=== PATIENT | male | born 1965 | race Caucasian/White ===

== ENCOUNTER 2017-09-26 13:52 | Emergency (ER) | payer OTHER ==
[2017-09-26] MEDS: SOD CHLORIDE 0.9% 1,000 ML IV (14:42)
== END 2017-09-26 15:53 | disposition home or self-care (01) ==
LOC: E/R 13:52
DX: F10.929 Alcohol use, unspecified with intoxication, unspecified (principal); E11.9 Type 2 diabetes mellitus without complications; Z79.4 Long term (current) use of insulin
CPT/HCPCS: 99282; J7030

== ENCOUNTER 2018-01-26 13:06 | Emergency (ER) | payer OTHER ==
[2018-01-26 17:11] LABS: ADD MAN DIFF? NO
[2018-01-26] MEDS: CEFTRIAXONE 1 GM/50 ML (PMX) 50 ML IVPB (17:11)
[2018-01-26] MEDS: SOD CHLORIDE 0.9% 1,000 ML IV (17:11)
[2018-01-26] MEDS: KETOROLAC 15 MG INJ IV (17:11)
[2018-01-26 17:14] LABS: WHITE BLOOD COUNT 10.2 10^3/ul (4.8-10.8)
[2018-01-26 17:14] LABS: ABNORMAL IP MESSAGE 1; BASOPHILS % 0.4 % (0.0-2.0); EOSINOPHILS # 0.1 10^3/ul (0.0-0.5); EOSINOPHILS % 1.2 % (0.0-7.0); HEMATOCRIT 32.3 % (42.0-52.0); HEMOGLOBIN 10.8 g/dl (14.0-18.0); LYMPHOCYTES # 0.5 10^3/ul (0.8-2.9); LYMPHOCYTES % 5.3 % (15.0-51.0); MEAN CORPUSCULAR HEMOGLOBIN 28.9 pg (29.0-33.0); MEAN CORPUSCULAR HGB CONC 33.4 g/dl (32.0-37.0); MEAN CORPUSCULAR VOLUME 86.4 fl (82.0-101.0); MEAN PLATELET VOLUME 10.3 fl (7.4-10.4); MONOCYTE # 1.4 10^3/ul (0.3-0.9); NEUTROPHILS % 78.6 % (39.0-77.0); PLATELET COUNT 476 10^3/UL (140-415); POSITIVE DIFF @See below; RED BLOOD COUNT 3.74 10^6/ul (4.70-6.10); RED CELL DISTRIBUTION WIDTH 13.2 % (11.5-14.5)
[2018-01-26 17:35] LABS: ALANINE AMINOTRANSFERASE 25 IU/L (13-69); ALBUMIN 4.2 g/dl (3.3-4.9); ALBUMIN/GLOBULIN RATIO 1.07; ALKALINE PHOSPHATASE 215 IU/L (42-121); ANION GAP 15 (8-16); ASPARTATE AMINO TRANSFERASE 22 IU/L (15-46); BILIRUBIN,INDIRECT 0.3 mg/dl (0-1.1); BILIRUBIN,TOTAL 0.3 mg/dl (0.2-1.3); BLOOD UREA NITROGEN 17 mg/dl (7-20); CALCIUM 9.6 mg/dl (8.4-10.2); CARBON DIOXIDE 29 mmol/L (21-31); CHLORIDE 96 mmol/L (97-110); CREATININE 1.35 mg/dl (0.61-1.24); GLUCOSE 307 mg/dl (70-220); LIPASE 23 U/L (23-300); POTASSIUM 4.4 mmol/L (3.5-5.1); SODIUM 136 mmol/L (135-144); TOTAL PROTEIN 8.1 g/dl (6.1-8.1)
[2018-01-26 17:38] LABS: PHENYTOIN (DILANTIN) < 3.0 ug/ml (10.0-20.0)
[2018-01-26 17:43] LABS: INR 0.93; PROTIME 12.6 Sec (11.9-14.9)
[2018-01-26 17:44] LABS: PARTIAL THROMBOPLASTIN TIME 37.4 Sec (25.0-35.0)
[2018-01-26 17:47] LABS: TROPONIN-I < 0.012 ng/ml (0.000-0.120)
[2018-01-26] MEDS: PIPER-TAZO 3.375 GM IV (PMX) 100 ML IVPB (18:10)
[2018-01-26] MEDS: VANCOMYCIN 1 GM (PMX) 250 ML IVPB (18:37)
== END 2018-01-26 20:41 | disposition left against medical advice (07) ==
LOC: E/R 13:06
DX: M86.9 Osteomyelitis, unspecified (principal); L03.031 Cellulitis of right toe; I10 Essential (primary) hypertension; E11.9 Type 2 diabetes mellitus without complications; Z79.01 Long term (current) use of anticoagulants; Z79.4 Long term (current) use of insulin
CPT/HCPCS: 36415; 71045; 73630; 80053; 80185; 83690; 84484; 85025; 85610; 85730; 93005; 93922; 93970; 96374; 99285-25

== ENCOUNTER 2018-02-27 12:08 | Emergency (ER) | payer OTHER | END 2018-02-27 13:06 | disposition home or self-care (01) | LOC: E/R 12:08 | DX: Z45.2 Encounter for adjustment and management of vascular access device (principal); E11.9 Type 2 diabetes mellitus without complications; Z79.4 Long term (current) use of insulin | CPT/HCPCS: 99282; Z7502 ==

== ENCOUNTER 2018-05-02 12:06 | Inpatient (IN) | payer OTHER ==
[2018-05-02 12:38] LABS: ADD MAN DIFF? NO
[2018-05-02 12:43] LABS: BASOPHILS % 0.2 % (0.0-2.0); HEMATOCRIT 38.9 % (42.0-52.0); HEMOGLOBIN 13.2 g/dl (14.0-18.0); LYMPHOCYTES # 0.9 10^3/ul (0.8-2.9); MEAN CORPUSCULAR HEMOGLOBIN 27.3 pg (29.0-33.0); MEAN CORPUSCULAR HGB CONC 33.9 g/dl (32.0-37.0); MEAN CORPUSCULAR VOLUME 80.5 fl (82.0-101.0); MEAN PLATELET VOLUME 9.7 fl (7.4-10.4); MONOCYTE # 1.1 10^3/ul (0.3-0.9); MONOCYTES % 5.1 % (0.0-11.0); NEUTROPHILS % 90.3 % (39.0-77.0); PLATELET COUNT 503 10^3/UL (140-415); RED BLOOD COUNT 4.83 10^6/ul (4.70-6.10); RED CELL DISTRIBUTION WIDTH 14.4 % (11.5-14.5)
[2018-05-02] MEDS: ONDANSETRON 4 MG INJ IV (12:46)
[2018-05-02] MEDS: SOD CHLORIDE 0.9% 700 ML IV (12:46)
[2018-05-02 13:00] LABS: ANION GAP 24 (8-16); BLOOD UREA NITROGEN 39 mg/dl (7-20); CALCIUM 9.9 mg/dl (8.4-10.2); CARBON DIOXIDE 24 mmol/L (21-31); CHLORIDE 90 mmol/L (97-110); CREATININE 1.37 mg/dl (0.61-1.24); GLUCOSE 151 mg/dl (70-220); MAGNESIUM 1.4 mg/dl (1.7-2.5); MODE ROOM AIR; MetHgb Venous 0.4 %; PHOSPHORUS 4.1 mg/dl (2.5-4.9); POTASSIUM 4.4 mmol/L (3.5-5.1); SODIUM 134 mmol/L (135-144); Sample Type Blood venous; Site VENOUS LINE; Venous COHb 0.9 %; Venous Fraction OxyHgb 67.1 %; Venous Total Hemglobin 13.4 g/dl
[2018-05-02 13:48] LABS: C-REACTIVE PROTEIN 7.4 mg/dl (0.0-0.9)
[2018-05-02] MEDS: SODIUM CHLORIDE 0.9% 1L BAG IV* (14:05)
[2018-05-02] MEDS: CEFEPIME 2GM/50 ML (PMX) 50 ML IVPB (14:07)
[2018-05-02 14:21] LABS: LACTIC ACID 5.2 mmol/L (0.5-2.0)
[2018-05-02] MEDS: LORAZEPAM 2 MG INJ IV (14:44)
[2018-05-02] MEDS: VANCOMYCIN 1 GM (PMX) 250 ML IVPB (14:44)
[2018-05-02] MEDS: LIDOCAINE 2% VISC 15 ML CUP PO (14:44)
[2018-05-02 14:58] LABS: ERYTHROCYTE SEDIMENTATION RATE 40 mm/Hr (0-20)
[2018-05-02] MEDS ORDERED: ACETAMINOPHEN 325 MG TAB PO (15:00)
[2018-05-02] MEDS ORDERED: ONDANSETRON 4 MG INJ IV (15:00)
[2018-05-02 16:46] LABS: LACTIC ACID 2.1 mmol/L (0.5-2.0)
[2018-05-02] MEDS: MULTIVITAMINS 10 ML, THIAMINE 100 MG, FOLIC ACID 1 MG, MAGNESIUM SULFATE 2 GM in SOD CH... IV (16:47)
[2018-05-02] MEDS ORDERED: VANCOMYCIN IV PER PHARMACY XX (17:30)
[2018-05-02] MEDS ORDERED: NACL 0.9% 3 ML SYG IV (17:30)
[2018-05-02 17:48] LABS: PHENYTOIN (DILANTIN) < 3.0 ug/ml (10.0-20.0)
[2018-05-02 17:54] LABS: HEMOGLOBIN A1C 8.5 % (0-5.9)
[2018-05-02] MEDS ORDERED: GLUCOSE GEL 15 GRAM TUBE PO ×2 (18:00)
[2018-05-02] MEDS ORDERED: GLUCAGON 1 MG INJ IM (18:00)
[2018-05-02] MEDS ORDERED: DEXTROSE 50% 50 ML SYRINGE IV (18:00)
[2018-05-02] MEDS ORDERED: GLUCOSE GEL 15 GRAM TUBE BUCCAL (18:00)
[2018-05-02] MEDS: SOD CHLORIDE 0.9% 1,000 ML IV (18:03)
[2018-05-02] MEDS: INSULIN ASPART [NOVOLOG] 3 ML PEN SC ×3 (18:45→20:54)
[2018-05-02] MEDS: HYDROCODONE/APAP (5/325) TAB PO (19:56)
[2018-05-02] MEDS: PIPER-TAZO 3.375 GM IV (PMX) 100 ML IVPB ×2 (19:57→23:00)
[2018-05-02 20:15] LABS: LACTIC ACID 1.1 mmol/L (0.5-2.0)
[2018-05-02] MEDS: MAGNESIUM SULFATE 3 GM in DEXTROSE 5% 100 ML IVPB (20:52)
[2018-05-02] MEDS: GABAPENTIN 300 MG CAP PO (20:53)
[2018-05-02] MEDS: PHENYTOIN 100 MG CAP PO (20:53)
[2018-05-02] MEDS: QUETIAPINE 100 MG TAB PO (20:53)
[2018-05-02] MEDS: CHLORDIAZEPOXIDE 25 MG CAP PO (20:53)
[2018-05-02] MEDS: carBAMAZepine (XR) 200 MG TABSR PO (20:54)
[2018-05-02] MEDS: INSULIN GLARGINE [LANTus] (100 UNITS/ML) SYG SC (21:00)
[2018-05-02] MEDS ORDERED: CARBAMAZEPINE 200 MG PO (21:00)
[2018-05-02] MEDS: VANCOMYCIN 500MG/NS (PMX) 100 ML IVPB (22:59)
[2018-05-02] MEDS: HEPARIN 5,000 UNIT/0.5 ML VIAL SC (23:02)
[2018-05-03] MEDS: SOD CHLORIDE 0.9% 1,000 ML IV ×3 (04:00→21:20)
[2018-05-03 04:14] LABS: ADD UMIC YES; UR ASCORBIC ACID NEGATIVE (NEGATIVE); UR BACTERIA FEW /HPF (NONE SEEN); UR BILIRUBIN (Dip) NEGATIVE (NEGATIVE); UR BLOOD (Dip) 2+ mg/dL (NEGATIVE); UR CLARITY CLEAR (CLEAR); UR COLOR STRAW (YELLOW); UR GLUCOSE (Dip) NEGATIVE (NEGATIVE); UR KETONES (Dip) TRACE mg/dL (NEGATIVE); UR LEUKOCYTE ESTERASE (Dip) NEGATIVE Leu/ul (NEGATIVE); UR NITRITE (Dip) NEGATIVE (NEGATIVE); UR RBC 0 /HPF (0-5); UR SPECIFIC GRAVITY (Dip) 1.008 (1.003-1.030); UR TOTAL PROTEIN (Dip) 2+ mg/dl (NEGATIVE); UR UROBILINOGEN (Dip) NEGATIVE (NEGATIVE); UR WBC 0 /HPF (0-5)
[2018-05-03 04:27] LABS: AMPHETAMINE/METHAMPHETAMINE Negative (NEGATIVE); BARBITURATES Negative (NEGATIVE); BENZODIAZEPINES Negative (NEGATIVE); CANNABINOIDS Negative (NEGATIVE); COCAINE Negative (NEGATIVE); OPIATES Negative (NEGATIVE)
[2018-05-03] MEDS: PIPER-TAZO 3.375 GM IV (PMX) 100 ML IVPB ×3 (05:29→17:43)
[2018-05-03] MEDS: CEPASTAT LOZENGE MT ×2 (05:29→23:04)
[2018-05-03] MEDS: HEPARIN 5,000 UNIT/0.5 ML VIAL SC ×3 (05:39→21:21)
[2018-05-03 06:18] LABS: ADD MAN DIFF? NO
[2018-05-03 06:38] LABS: WHITE BLOOD COUNT 13.5 10^3/ul (4.8-10.8)
[2018-05-03 06:38] LABS: BASOPHILS % 0.3 % (0.0-2.0); EOSINOPHILS % 0.2 % (0.0-7.0); HEMATOCRIT 34.6 % (42.0-52.0); HEMOGLOBIN 11.5 g/dl (14.0-18.0); LYMPHOCYTES # 1.2 10^3/ul (0.8-2.9); LYMPHOCYTES % 8.7 % (15.0-51.0); MEAN CORPUSCULAR HEMOGLOBIN 27.8 pg (29.0-33.0); MEAN CORPUSCULAR HGB CONC 33.2 g/dl (32.0-37.0); MEAN CORPUSCULAR VOLUME 83.6 fl (82.0-101.0); MEAN PLATELET VOLUME 10.1 fl (7.4-10.4); MONOCYTE # 0.6 10^3/ul (0.3-0.9); MONOCYTES % 4.3 % (0.0-11.0); NEUTROPHIL # 11.6 10^3/ul (1.6-7.5); NEUTROPHILS % 86.2 % (39.0-77.0); PLATELET COUNT 370 10^3/UL (140-415); RED BLOOD COUNT 4.14 10^6/ul (4.70-6.10); RED CELL DISTRIBUTION WIDTH 14.6 % (11.5-14.5)
[2018-05-03 06:47] LABS: INR 0.87; PROTIME 11.9 Sec (11.9-14.9); PT RATIO 0.9
[2018-05-03 06:48] LABS: PARTIAL THROMBOPLASTIN TIME 30.6 Sec (23.0-35.0)
[2018-05-03 07:07] LABS: CHOLESTEROL 145 mg/dl (100-200); MAGNESIUM 2.4 mg/dl (1.7-2.5); TRIGLYCERIDES 67 mg/dl (0-149)
[2018-05-03 07:10] LABS: ALANINE AMINOTRANSFERASE 47 IU/L (13-69); ALBUMIN 3.6 g/dl (3.3-4.9); ALBUMIN/GLOBULIN RATIO 1.02; ALKALINE PHOSPHATASE 222 IU/L (42-121); ANION GAP 15 (8-16); ASPARTATE AMINO TRANSFERASE 58 IU/L (15-46); BILIRUBIN,INDIRECT 0.9 mg/dl (0-1.1); BILIRUBIN,TOTAL 0.9 mg/dl (0.2-1.3); BLOOD UREA NITROGEN 18 mg/dl (7-20); CARBON DIOXIDE 29 mmol/L (21-31); CHLORIDE 101 mmol/L (97-110); CREATININE 0.97 mg/dl (0.61-1.24); GLUCOSE 56 mg/dl (70-220); POTASSIUM 3.6 mmol/L (3.5-5.1); SODIUM 141 mmol/L (135-144); TOTAL PROTEIN 7.1 g/dl (6.1-8.1)
[2018-05-03 07:23] LABS: CHOL/HDL RATIO 1.2 RATIO; HDL CHOLESTEROL 118 mg/dl (28-71); LDL CHOLESTEROL,CALCULATED 14 mg/dl
[2018-05-03 07:28] LABS: LACTIC ACID 1.6 mmol/L (0.5-2.0)
[2018-05-03] MEDS: INSULIN ASPART [NOVOLOG] 3 ML PEN SC ×7 (07:55→23:09)
[2018-05-03] MEDS: ONDANSETRON 4 MG INJ IV (08:14)
[2018-05-03] MEDS: DEXTROSE 50% 50 ML SYRINGE IV (08:29)
[2018-05-03] MEDS: VANCOMYCIN 1 GM 250 ML IVPB ×2 (08:41→23:04)
[2018-05-03] MEDS: GABAPENTIN 300 MG CAP PO ×2 (08:45→21:20)
[2018-05-03] MEDS: PHENYTOIN 100 MG CAP PO ×2 (08:45→23:05)
[2018-05-03] MEDS: FLUOXETINE 20 MG CAP PO (08:46)
[2018-05-03] MEDS: AMLODIPINE 5 MG TAB PO (08:46)
[2018-05-03] MEDS: MULTIVITAMINS THERAPEUTIC TAB PO (08:46)
[2018-05-03] MEDS: MULTIVITAMINS 10 ML, THIAMINE 100 MG, FOLIC ACID 1 MG in SOD CHLORIDE 0.9% 1,000 ML IVPB (08:52)
[2018-05-03] MEDS: CHLORDIAZEPOXIDE 25 MG CAP PO ×3 (08:54→21:21)
[2018-05-03] MEDS: carBAMAZepine (XR) 200 MG TABSR PO ×2 (08:58→21:00)
[2018-05-03] MEDS ORDERED: FOLIC ACID 1 MG TAB PO (09:00)
[2018-05-03] MEDS: HYDROCODONE/APAP (5/325) TAB PO (13:20)
[2018-05-03] MEDS: QUETIAPINE 100 MG TAB PO (23:04)
[2018-05-03] MEDS: INSULIN GLARGINE [LANTus] (100 UNITS/ML) SYG SC (23:07)
[2018-05-04] MEDS: PIPER-TAZO 3.375 GM IV (PMX) 100 ML IVPB ×4 (02:08→17:26)
[2018-05-04] MEDS: HEPARIN 5,000 UNIT/0.5 ML VIAL SC ×3 (05:20→21:05)
[2018-05-04 08:20] LABS: ADD MAN DIFF? NO
[2018-05-04 08:23] LABS: BASOPHIL # 0.1 10^3/ul (0.0-0.1); BASOPHILS % 0.8 % (0.0-2.0); EOSINOPHILS # 0.1 10^3/ul (0.0-0.5); EOSINOPHILS % 2.3 % (0.0-7.0); HEMATOCRIT 30.3 % (42.0-52.0); HEMOGLOBIN 9.9 g/dl (14.0-18.0); LYMPHOCYTES % 16.6 % (15.0-51.0); MEAN CORPUSCULAR HEMOGLOBIN 27.9 pg (29.0-33.0); MEAN CORPUSCULAR HGB CONC 32.7 g/dl (32.0-37.0); MEAN CORPUSCULAR VOLUME 85.4 fl (82.0-101.0); MEAN PLATELET VOLUME 10.4 fl (7.4-10.4); MONOCYTE # 0.4 10^3/ul (0.3-0.9); MONOCYTES % 6.5 % (0.0-11.0); NEUTROPHIL # 4.4 10^3/ul (1.6-7.5); NEUTROPHILS % 73.5 % (39.0-77.0); PLATELET COUNT 292 10^3/UL (140-415); RED BLOOD COUNT 3.55 10^6/ul (4.70-6.10); RED CELL DISTRIBUTION WIDTH 14.6 % (11.5-14.5)
[2018-05-04 08:43] LABS: PHOSPHORUS 3.1 mg/dl (2.5-4.9)
[2018-05-04 08:43] LABS: MAGNESIUM 1.4 mg/dl (1.7-2.5)
[2018-05-04 08:45] LABS: ANION GAP 10 (8-16); BLOOD UREA NITROGEN 9 mg/dl (7-20); CALCIUM 8.5 mg/dl (8.4-10.2); CARBON DIOXIDE 31 mmol/L (21-31); CHLORIDE 101 mmol/L (97-110); CREATININE 1.03 mg/dl (0.61-1.24); GLUCOSE 169 mg/dl (70-220); POTASSIUM 3.7 mmol/L (3.5-5.1); SODIUM 138 mmol/L (135-144)
[2018-05-04 09:06] LABS: VANCOMYCIN,TROUGH 13.5 ug/ml (10.0-20.0)
[2018-05-04] MEDS: MULTIVITAMINS THERAPEUTIC TAB PO (09:06)
[2018-05-04] MEDS: FLUOXETINE 20 MG CAP PO (09:07)
[2018-05-04] MEDS: GABAPENTIN 300 MG CAP PO ×2 (09:07→20:55)
[2018-05-04] MEDS: PHENYTOIN 100 MG CAP PO ×2 (09:07→20:55)
[2018-05-04] MEDS: CHLORDIAZEPOXIDE 25 MG CAP PO ×3 (09:07→20:55)
[2018-05-04] MEDS: AMLODIPINE 5 MG TAB PO (09:07)
[2018-05-04] MEDS: INSULIN ASPART [NOVOLOG] 3 ML PEN SC ×7 (09:10→21:03)
[2018-05-04] MEDS: carBAMAZepine (XR) 200 MG TABSR PO ×3 (09:21→23:07)
[2018-05-04] MEDS: MULTIVITAMINS 10 ML, THIAMINE 100 MG, FOLIC ACID 1 MG in SOD CHLORIDE 0.9% 1,000 ML IVPB (09:29)
[2018-05-04] MEDS: SOD CHLORIDE 0.9% 1,000 ML IV (10:00)
[2018-05-04] MEDS: VANCOMYCIN 1 GM 250 ML IVPB ×2 (10:27→22:22)
[2018-05-04] MEDS: CEPASTAT LOZENGE MT (10:31)
[2018-05-04] MEDS: INSULIN GLARGINE [LANTus] (100 UNITS/ML) SYG SC (21:04)
[2018-05-04] MEDS: QUETIAPINE 100 MG TAB PO (21:08)
[2018-05-04] MEDS: OXYCODONE/ACETAMINOPHEN (10/325) TAB PO (21:14)
[2018-05-05] MEDS: PIPER-TAZO 3.375 GM IV (PMX) 100 ML IVPB ×5 (00:40→23:56)
[2018-05-05] MEDS: MAGNESIUM SULFATE 3 GM in DEXTROSE 5% 100 ML IVPB (01:42)
[2018-05-05] MEDS: INSULIN ASPART [NOVOLOG] 3 ML PEN SC ×8 (02:46→20:42)
[2018-05-05 03:41] LABS: ADD MAN DIFF? NO
[2018-05-05 04:00] LABS: GLUCOSE 323 mg/dl (70-220); PHOSPHORUS 2.9 mg/dl (2.5-4.9)
[2018-05-05 04:00] LABS: MAGNESIUM 1.9 mg/dl (1.7-2.5)
[2018-05-05 04:01] LABS: ANION GAP 10 (8-16); BLOOD UREA NITROGEN 10 mg/dl (7-20); CALCIUM 8.3 mg/dl (8.4-10.2); CARBON DIOXIDE 29 mmol/L (21-31); CHLORIDE 101 mmol/L (97-110); CREATININE 1.02 mg/dl (0.61-1.24); GLUCOSE 324 mg/dl (70-220); POTASSIUM 4.2 mmol/L (3.5-5.1); SODIUM 136 mmol/L (135-144)
[2018-05-05 04:05] LABS: WHITE BLOOD COUNT 5.5 10^3/ul (4.8-10.8)
[2018-05-05 04:05] LABS: BASOPHILS % 0.5 % (0.0-2.0); EOSINOPHILS # 0.2 10^3/ul (0.0-0.5); EOSINOPHILS % 3.5 % (0.0-7.0); HEMATOCRIT 30.5 % (42.0-52.0); HEMOGLOBIN 9.8 g/dl (14.0-18.0); LYMPHOCYTES % 18.5 % (15.0-51.0); MEAN CORPUSCULAR HEMOGLOBIN 27.6 pg (29.0-33.0); MEAN CORPUSCULAR HGB CONC 32.1 g/dl (32.0-37.0); MEAN CORPUSCULAR VOLUME 85.9 fl (82.0-101.0); MEAN PLATELET VOLUME 10.5 fl (7.4-10.4); MONOCYTE # 0.3 10^3/ul (0.3-0.9); MONOCYTES % 5.6 % (0.0-11.0); NEUTROPHIL # 3.9 10^3/ul (1.6-7.5); NEUTROPHILS % 71.4 % (39.0-77.0); PLATELET COUNT 289 10^3/UL (140-415); RED BLOOD COUNT 3.55 10^6/ul (4.70-6.10); RED CELL DISTRIBUTION WIDTH 14.6 % (11.5-14.5)
[2018-05-05] MEDS: HEPARIN 5,000 UNIT/0.5 ML VIAL SC ×3 (06:01→21:10)
[2018-05-05] MEDS: OXYCODONE/ACETAMINOPHEN (10/325) TAB PO (07:59)
[2018-05-05] MEDS ORDERED: FLUOXETINE 20 MG CAP PO (09:00)
[2018-05-05] MEDS: VANCOMYCIN 1 GM 250 ML IVPB ×2 (09:11→20:42)
[2018-05-05] MEDS: MULTIVITAMINS 10 ML, THIAMINE 100 MG, FOLIC ACID 1 MG in SOD CHLORIDE 0.9% 1,000 ML IVPB (09:11)
[2018-05-05] MEDS: AMLODIPINE 5 MG TAB PO (09:11)
[2018-05-05] MEDS: CHLORDIAZEPOXIDE 25 MG CAP PO ×3 (09:12→20:38)
[2018-05-05] MEDS: LOSARTAN 25 MG TAB PO (09:12)
[2018-05-05] MEDS: FLUOXETINE 10 MG CAP PO ×2 (09:12→11:13)
[2018-05-05] MEDS: PHENYTOIN 100 MG CAP PO ×2 (09:12→20:38)
[2018-05-05] MEDS: carBAMAZepine (XR) 200 MG TABSR PO ×2 (09:13→20:38)
[2018-05-05] MEDS: GABAPENTIN 300 MG CAP PO ×2 (09:13→20:38)
[2018-05-05] MEDS: MULTIVITAMINS THERAPEUTIC TAB PO (09:13)
[2018-05-05] MEDS: FLUOXETINE 20 MG CAP PO (11:13)
[2018-05-05] MEDS: CEPASTAT LOZENGE MT (12:42)
[2018-05-05] MEDS: hydrALAzine 20 MG INJ IV (14:43)
[2018-05-05] MEDS: morphine 2 MG INJ IV ×2 (16:02→20:39)
[2018-05-05] MEDS: QUETIAPINE 100 MG TAB PO (20:37)
[2018-05-05] MEDS: INSULIN GLARGINE [LANTus] (100 UNITS/ML) SYG SC (20:41)
[2018-05-06] MEDS: PIPER-TAZO 3.375 GM IV (PMX) 100 ML IVPB ×2 (05:22→13:49)
[2018-05-06] MEDS: HEPARIN 5,000 UNIT/0.5 ML VIAL SC ×3 (05:23→21:16)
[2018-05-06] MEDS: PHENYTOIN 100 MG CAP PO ×2 (08:19→21:01)
[2018-05-06] MEDS: MULTIVITAMINS THERAPEUTIC TAB PO (08:19)
[2018-05-06] MEDS: FLUOXETINE 20 MG CAP PO (08:20)
[2018-05-06] MEDS: CHLORDIAZEPOXIDE 25 MG CAP PO ×3 (08:21→21:00)
[2018-05-06] MEDS: carBAMAZepine (XR) 200 MG TABSR PO ×2 (08:21→21:00)
[2018-05-06] MEDS: GABAPENTIN 300 MG CAP PO ×2 (08:21→21:00)
[2018-05-06] MEDS: FLUOXETINE 10 MG CAP PO (08:21)
[2018-05-06] MEDS: LOSARTAN 25 MG TAB PO (08:22)
[2018-05-06] MEDS: AMLODIPINE 5 MG TAB PO (08:22)
[2018-05-06] MEDS: INSULIN ASPART [NOVOLOG] 3 ML PEN SC ×7 (08:27→21:00)
[2018-05-06] MEDS: VANCOMYCIN 1 GM 250 ML IVPB ×2 (08:33→20:58)
[2018-05-06] MEDS: morphine 2 MG INJ IV ×5 (08:33→21:01)
[2018-05-06] MEDS: MULTIVITAMINS 10 ML, THIAMINE 100 MG, FOLIC ACID 1 MG in SOD CHLORIDE 0.9% 1,000 ML IVPB (10:41)
[2018-05-06] MEDS: INSULIN GLARGINE [LANTus] (100 UNITS/ML) SYG SC (20:59)
[2018-05-06] MEDS: QUETIAPINE 100 MG TAB PO (21:00)
[2018-05-07] MEDS: LEVOFLOXACIN 500 MG TAB PO (05:23)
[2018-05-07] MEDS: HEPARIN 5,000 UNIT/0.5 ML VIAL SC ×3 (05:24→21:39)
[2018-05-07 08:15] LABS: CREATININE 1.05 mg/dl (0.61-1.24)
[2018-05-07 08:15] LABS: BLOOD UREA NITROGEN 10 mg/dl (7-20)
[2018-05-07] MEDS: MULTIVITAMINS THERAPEUTIC TAB PO (08:18)
[2018-05-07] MEDS: FLUOXETINE 10 MG CAP PO (08:18)
[2018-05-07] MEDS: THIAMINE 100 MG TAB PO (08:18)
[2018-05-07] MEDS: GABAPENTIN 300 MG CAP PO ×2 (08:18→21:10)
[2018-05-07] MEDS: PHENYTOIN 100 MG CAP PO ×2 (08:18→21:10)
[2018-05-07] MEDS: carBAMAZepine (XR) 200 MG TABSR PO ×2 (08:18→21:10)
[2018-05-07] MEDS: CHLORDIAZEPOXIDE 25 MG CAP PO ×3 (08:19→21:09)
[2018-05-07] MEDS: FLUOXETINE 20 MG CAP PO (08:19)
[2018-05-07] MEDS: FOLIC ACID 1 MG TAB PO (08:19)
[2018-05-07] MEDS: AMLODIPINE 5 MG TAB PO (08:19)
[2018-05-07] MEDS: INSULIN ASPART [NOVOLOG] 3 ML PEN SC ×7 (08:20→21:00)
[2018-05-07] MEDS: VANCOMYCIN 1 GM 250 ML IVPB ×2 (08:52→21:09)
[2018-05-07] MEDS: SOD CHLORIDE 0.45% 1,000 ML IV (08:57)
[2018-05-07] MEDS: LOSARTAN 25 MG TAB PO (09:01)
[2018-05-07 09:21] LABS: INR 0.82; PROTIME 11.3 Sec (11.9-14.9); PT RATIO 0.9
[2018-05-07 09:22] LABS: PARTIAL THROMBOPLASTIN TIME 30.3 Sec (23.0-35.0)
[2018-05-07] MEDS: morphine 2 MG INJ IV ×3 (09:28→21:44)
[2018-05-07] MEDS ORDERED: LIDOCAINE 2% (SDV) 5 ML INJ (19:04)
[2018-05-07] MEDS ORDERED: SUCCINYLCHOLINE CHLORIDE 100 MG/5 ML SYG IV (19:04)
[2018-05-07] MEDS ORDERED: PROPOFOL 20 ML (19:04)
[2018-05-07] MEDS ORDERED: ONDANSETRON 4 MG INJ (19:04)
[2018-05-07] MEDS: hydrALAzine 20 MG INJ IV (19:55)
[2018-05-07] MEDS ORDERED: hydrALAzine 20 MG INJ IV (20:00)
[2018-05-07] MEDS ORDERED: HYDROmorphONE 1 MG/5 ML IV SYRINGE IV ×2 (20:12→20:30)
[2018-05-07] MEDS: HYDROmorphONE 1 MG/5 ML IV SYRINGE IV (20:22)
[2018-05-07] MEDS: QUETIAPINE 100 MG TAB PO (21:10)
[2018-05-07] MEDS: INSULIN GLARGINE [LANTus] (100 UNITS/ML) SYG SC (21:11)
[2018-05-08] MEDS: SOD CHLORIDE 0.45% 1,000 ML IV (04:30)
[2018-05-08] MEDS: LEVOFLOXACIN 500 MG TAB PO (06:33)
[2018-05-08] MEDS: HEPARIN 5,000 UNIT/0.5 ML VIAL SC ×3 (06:37→21:43)
[2018-05-08] MEDS: INSULIN ASPART [NOVOLOG] 3 ML PEN SC ×7 (08:53→20:26)
[2018-05-08] MEDS: carBAMAZepine (XR) 200 MG TABSR PO ×2 (08:56→20:17)
[2018-05-08] MEDS: PHENYTOIN 100 MG CAP PO ×2 (08:56→20:17)
[2018-05-08] MEDS: CHLORDIAZEPOXIDE 25 MG CAP PO (08:56)
[2018-05-08] MEDS: THIAMINE 100 MG TAB PO (08:56)
[2018-05-08] MEDS: GABAPENTIN 300 MG CAP PO ×2 (08:57→20:17)
[2018-05-08] MEDS: FOLIC ACID 1 MG TAB PO (08:57)
[2018-05-08] MEDS: FLUOXETINE 10 MG CAP PO (08:57)
[2018-05-08] MEDS: MULTIVITAMINS THERAPEUTIC TAB PO (08:57)
[2018-05-08] MEDS: VANCOMYCIN 1 GM 250 ML IVPB ×2 (08:58→20:16)
[2018-05-08] MEDS: FLUOXETINE 20 MG CAP PO (08:58)
[2018-05-08] MEDS: LOSARTAN 25 MG TAB PO (09:00)
[2018-05-08] MEDS: AMLODIPINE 5 MG TAB PO (09:00)
[2018-05-08] MEDS: morphine 2 MG INJ IV ×2 (10:18→18:00)
[2018-05-08] MEDS: QUETIAPINE 100 MG TAB PO (20:17)
[2018-05-08] MEDS: INSULIN GLARGINE [LANTus] (100 UNITS/ML) SYG SC (20:26)
[2018-05-08] MEDS: morphine LIQ (10 MG/5 ML) CUP PO (21:40)
[2018-05-09] MEDS: SOD CHLORIDE 0.45% 1,000 ML IV (01:56)
[2018-05-09] MEDS: morphine LIQ (10 MG/5 ML) CUP PO ×5 (01:57→21:29)
[2018-05-09] MEDS: LEVOFLOXACIN 500 MG TAB PO (06:15)
[2018-05-09] MEDS: HEPARIN 5,000 UNIT/0.5 ML VIAL SC ×3 (06:18→21:22)
[2018-05-09] MEDS: VANCOMYCIN 1 GM 250 ML IVPB (08:09)
[2018-05-09] MEDS: INSULIN ASPART [NOVOLOG] 3 ML PEN SC ×7 (08:11→23:54)
[2018-05-09 08:50] LABS: ADD MAN DIFF? NO
[2018-05-09 08:53] LABS: WHITE BLOOD COUNT 8.7 10^3/ul (4.8-10.8)
[2018-05-09 08:53] LABS: BASOPHILS % 0.5 % (0.0-2.0); EOSINOPHILS # 0.2 10^3/ul (0.0-0.5); EOSINOPHILS % 2.8 % (0.0-7.0); HEMATOCRIT 28.1 % (42.0-52.0); HEMOGLOBIN 9.1 g/dl (14.0-18.0); LYMPHOCYTES # 1.2 10^3/ul (0.8-2.9); LYMPHOCYTES % 13.2 % (15.0-51.0); MEAN CORPUSCULAR HEMOGLOBIN 27.7 pg (29.0-33.0); MEAN CORPUSCULAR HGB CONC 32.4 g/dl (32.0-37.0); MEAN CORPUSCULAR VOLUME 85.4 fl (82.0-101.0); MEAN PLATELET VOLUME 10.5 fl (7.4-10.4); MONOCYTES % 11.9 % (0.0-11.0); NEUTROPHIL # 6.1 10^3/ul (1.6-7.5); NEUTROPHILS % 69.8 % (39.0-77.0); PLATELET COUNT 328 10^3/UL (140-415); RED BLOOD COUNT 3.29 10^6/ul (4.70-6.10); RED CELL DISTRIBUTION WIDTH 15.6 % (11.5-14.5)
[2018-05-09] MEDS: MULTIVITAMINS THERAPEUTIC TAB PO (09:07)
[2018-05-09] MEDS: carBAMAZepine (XR) 200 MG TABSR PO ×2 (09:07→21:18)
[2018-05-09] MEDS: THIAMINE 100 MG TAB PO (09:07)
[2018-05-09] MEDS: FOLIC ACID 1 MG TAB PO (09:07)
[2018-05-09] MEDS: PHENYTOIN 100 MG CAP PO ×2 (09:07→21:18)
[2018-05-09] MEDS: FLUOXETINE 10 MG CAP PO (09:07)
[2018-05-09] MEDS: LOSARTAN 25 MG TAB PO (09:08)
[2018-05-09] MEDS: AMLODIPINE 5 MG TAB PO (09:08)
[2018-05-09] MEDS: FLUOXETINE 20 MG CAP PO (09:08)
[2018-05-09] MEDS: GABAPENTIN 300 MG CAP PO ×2 (09:09→21:18)
[2018-05-09 09:14] LABS: ANION GAP 12 (8-16); BLOOD UREA NITROGEN 25 mg/dl (7-20); CARBON DIOXIDE 27 mmol/L (21-31); CHLORIDE 101 mmol/L (97-110); CREATININE 2.58 mg/dl (0.61-1.24); GLUCOSE 172 mg/dl (70-220); POTASSIUM 4.4 mmol/L (3.5-5.1); SODIUM 136 mmol/L (135-144)
[2018-05-09] MEDS: LIDOCAINE 1% (MPF) 5 ML VIAL SC (13:00)
[2018-05-09] MEDS: DAPTOMYCIN 420 MG in SOD CHLORIDE 0.9% 100 ML IVPB (15:26)
[2018-05-09] MEDS: ACETAMINOPHEN 325 MG TAB PO ×2 (17:36→20:13)
[2018-05-09 18:04] LABS: SODIUM,URINE RANDOM 56 mmol/L (30-90)
[2018-05-09] MEDS: CEPASTAT LOZENGE MT ×2 (18:04→18:05)
[2018-05-09 18:08] LABS: CREATININE,URINE RANDOM 51.36 mg/dl (20-370); PROTEIN/CREAT RATIO 0.46 RATIO
[2018-05-09] MEDS: QUETIAPINE 100 MG TAB PO (21:18)
[2018-05-09] MEDS: INSULIN GLARGINE [LANTus] (100 UNITS/ML) SYG SC (23:52)
[2018-05-10] MEDS: morphine LIQ (10 MG/5 ML) CUP PO ×2 (02:42→16:02)
[2018-05-10] MEDS: SOD CHLORIDE 0.45% 1,000 ML IV ×2 (04:48→16:30)
[2018-05-10] MEDS: LEVOFLOXACIN 500 MG TAB PO (06:17)
[2018-05-10] MEDS: HEPARIN 5,000 UNIT/0.5 ML VIAL SC ×3 (06:18→22:29)
[2018-05-10 07:38] LABS: ADD MAN DIFF? NO
[2018-05-10 07:41] LABS: ABNORMAL IP MESSAGE 1; BASOPHIL # 0.1 10^3/ul (0.0-0.1); BASOPHILS % 0.3 % (0.0-2.0); EOSINOPHILS # 0.2 10^3/ul (0.0-0.5); EOSINOPHILS % 1.2 % (0.0-7.0); HEMATOCRIT 27.6 % (42.0-52.0); LYMPHOCYTES # 1.1 10^3/ul (0.8-2.9); LYMPHOCYTES % 7.3 % (15.0-51.0); MEAN CORPUSCULAR HGB CONC 32.6 g/dl (32.0-37.0); MEAN CORPUSCULAR VOLUME 85.7 fl (82.0-101.0); MONOCYTE # 2.1 10^3/ul (0.3-0.9); MONOCYTES % 14.6 % (0.0-11.0); NEUTROPHIL # 11.1 10^3/ul (1.6-7.5); NEUTROPHILS % 75.6 % (39.0-77.0); PLATELET COUNT 376 10^3/UL (140-415); POSITIVE DIFF @See below; RED BLOOD COUNT 3.22 10^6/ul (4.70-6.10); RED CELL DISTRIBUTION WIDTH 15.9 % (11.5-14.5)
[2018-05-10 07:41] LABS: WHITE BLOOD COUNT 14.7 10^3/ul (4.8-10.8)
[2018-05-10] MEDS: INSULIN ASPART [NOVOLOG] 3 ML PEN SC ×7 (08:00→21:00)
[2018-05-10 08:08] LABS: CREATINE KINASE 45 IU/L (23-200)
[2018-05-10 08:10] LABS: URIC ACID 4.6 mg/dl (3.1-7.9)
[2018-05-10 08:10] LABS: ANION GAP 11 (8-16); CARBON DIOXIDE 26 mmol/L (21-31); CHLORIDE 101 mmol/L (97-110); CREATININE 2.74 mg/dl (0.61-1.24); GLUCOSE 91 mg/dl (70-220); SODIUM 133 mmol/L (135-144)
[2018-05-10 08:11] LABS: BLOOD UREA NITROGEN 34 mg/dl (7-20)
[2018-05-10] MEDS: MULTIVITAMINS THERAPEUTIC TAB PO ×2 (08:35→09:00)
[2018-05-10] MEDS: GABAPENTIN 300 MG CAP PO ×3 (08:36→21:03)
[2018-05-10] MEDS: FLUOXETINE 10 MG CAP PO ×2 (08:36→09:00)
[2018-05-10] MEDS: AMLODIPINE 5 MG TAB PO ×2 (08:36→09:00)
[2018-05-10] MEDS: FLUOXETINE 20 MG CAP PO ×2 (08:36→09:00)
[2018-05-10] MEDS: PHENYTOIN 100 MG CAP PO ×3 (08:36→21:02)
[2018-05-10] MEDS: FOLIC ACID 1 MG TAB PO ×2 (08:37→09:00)
[2018-05-10] MEDS: carBAMAZepine (XR) 200 MG TABSR PO ×3 (08:37→21:04)
[2018-05-10] MEDS: THIAMINE 100 MG TAB PO (09:00)
[2018-05-10 12:39] LABS: LACTIC ACID 0.9 mmol/L (0.5-2.0)
[2018-05-10] MEDS ORDERED: ZYVOX 600 MG TAB PO (13:30)
[2018-05-10] MEDS: GUAIFENESIN LA 600 MG TABSR PO ×2 (13:30→23:00)
[2018-05-10] MEDS: BUDESONIDE (NEB) 0.25 MG/2 ML AMP HHN ×2 (13:30→20:09)
[2018-05-10] MEDS: ALBUTEROL/IPRATROPIUM (NEB) 3 ML AMP HHN ×3 (13:54→20:03)
[2018-05-10] MEDS: MEROPENEM 500MG/50 ML (PMX) 50 ML IVPB ×2 (14:11→23:41)
[2018-05-10] MEDS: CLINDAMYCIN 600 MG/D5W (PMX) 50 ML IVPB ×2 (15:00→22:27)
[2018-05-10] MEDS: DEXTROSE 5%-0.9% NACL 1,000 ML IV (16:44)
[2018-05-10] MEDS: DAPTOMYCIN 420 MG in SOD CHLORIDE 0.9% 100 ML IVPB (16:48)
[2018-05-10] MEDS: morphine 2 MG INJ IV ×2 (18:49→22:31)
[2018-05-10] MEDS: INSULIN GLARGINE [LANTus] (100 UNITS/ML) SYG SC (20:37)
[2018-05-10] MEDS: LORAZEPAM 2 MG INJ IV (20:59)
[2018-05-10] MEDS: QUETIAPINE 100 MG TAB PO (21:01)
[2018-05-11] MEDS: morphine 2 MG INJ IV ×4 (03:39→20:11)
[2018-05-11] MEDS: CLINDAMYCIN 600 MG/D5W (PMX) 50 ML IVPB ×3 (05:49→22:30)
[2018-05-11] MEDS: HEPARIN 5,000 UNIT/0.5 ML VIAL SC ×3 (05:51→22:31)
[2018-05-11 07:19] LABS: ADD MAN DIFF? NO
[2018-05-11 07:21] LABS: WHITE BLOOD COUNT 13.6 10^3/ul (4.8-10.8)
[2018-05-11 07:21] LABS: ABNORMAL IP MESSAGE 1; BASOPHILS % 0.2 % (0.0-2.0); EOSINOPHILS # 0.2 10^3/ul (0.0-0.5); EOSINOPHILS % 1.1 % (0.0-7.0); HEMATOCRIT 27.1 % (42.0-52.0); HEMOGLOBIN 8.7 g/dl (14.0-18.0); LYMPHOCYTES # 0.9 10^3/ul (0.8-2.9); LYMPHOCYTES % 6.2 % (15.0-51.0); MEAN CORPUSCULAR HEMOGLOBIN 27.8 pg (29.0-33.0); MEAN CORPUSCULAR HGB CONC 32.1 g/dl (32.0-37.0); MEAN CORPUSCULAR VOLUME 86.6 fl (82.0-101.0); MEAN PLATELET VOLUME 9.8 fl (7.4-10.4); MONOCYTES % 14.8 % (0.0-11.0); NEUTROPHIL # 10.4 10^3/ul (1.6-7.5); NEUTROPHILS % 76.5 % (39.0-77.0); PLATELET COUNT 424 10^3/UL (140-415); POSITIVE DIFF @See below; RED BLOOD COUNT 3.13 10^6/ul (4.70-6.10); RED CELL DISTRIBUTION WIDTH 15.9 % (11.5-14.5)
[2018-05-11 07:55] LABS: ANION GAP 11 (8-16); BLOOD UREA NITROGEN 32 mg/dl (7-20); CALCIUM 9.3 mg/dl (8.4-10.2); CARBON DIOXIDE 28 mmol/L (21-31); CHLORIDE 104 mmol/L (97-110); CREATININE 3.34 mg/dl (0.61-1.24); POTASSIUM 4.9 mmol/L (3.5-5.1); SODIUM 138 mmol/L (135-144)
[2018-05-11] MEDS: INSULIN ASPART [NOVOLOG] 3 ML PEN SC ×7 (08:00→20:25)
[2018-05-11] MEDS: DEXTROSE 50% 50 ML SYRINGE IV (08:07)
[2018-05-11 08:12] LABS: GLUCOSE 44 mg/dl (70-220)
[2018-05-11] MEDS: ALBUTEROL/IPRATROPIUM (NEB) 3 ML AMP HHN ×4 (08:24→21:16)
[2018-05-11] MEDS: BUDESONIDE (NEB) 0.25 MG/2 ML AMP HHN ×2 (08:25→21:08)
[2018-05-11] MEDS: FOLIC ACID 1 MG TAB PO (08:48)
[2018-05-11] MEDS: MULTIVITAMINS THERAPEUTIC TAB PO (08:49)
[2018-05-11] MEDS: PHENYTOIN 100 MG CAP PO ×2 (08:49→20:38)
[2018-05-11] MEDS: GABAPENTIN 300 MG CAP PO ×2 (08:49→20:22)
[2018-05-11] MEDS: AMLODIPINE 5 MG TAB PO (08:49)
[2018-05-11] MEDS: FLUOXETINE 10 MG CAP PO (08:49)
[2018-05-11] MEDS: GUAIFENESIN LA 600 MG TABSR PO ×2 (08:50→20:22)
[2018-05-11] MEDS: THIAMINE 100 MG TAB PO (08:50)
[2018-05-11] MEDS: FLUOXETINE 20 MG CAP PO (08:50)
[2018-05-11] MEDS: carBAMAZepine (XR) 200 MG TABSR PO ×2 (08:50→20:22)
[2018-05-11 09:04] LABS: GLUCOSE 158 mg/dl (70-220)
[2018-05-11] MEDS: MEROPENEM 500MG/50 ML (PMX) 50 ML IVPB ×2 (09:06→20:38)
[2018-05-11] MEDS: morphine LIQ (10 MG/5 ML) CUP PO (09:18)
[2018-05-11] MEDS: DEXTROSE 5%-0.9% NACL 1,000 ML IV (10:15)
[2018-05-11] MEDS: ACETAMINOPHEN 325 MG TAB PO (20:21)
[2018-05-11] MEDS: QUETIAPINE 100 MG TAB PO (20:22)
[2018-05-11] MEDS: INSULIN GLARGINE [LANTus] (100 UNITS/ML) SYG SC (20:27)
[2018-05-11] MEDS: LORAZEPAM 2 MG INJ IV (20:50)
[2018-05-12] MEDS: CLINDAMYCIN 600 MG/D5W (PMX) 50 ML IVPB ×3 (06:03→22:19)
[2018-05-12] MEDS: HEPARIN 5,000 UNIT/0.5 ML VIAL SC ×3 (06:03→22:38)
[2018-05-12] MEDS: morphine 2 MG INJ IV ×3 (06:15→19:52)
[2018-05-12 07:30] LABS: ADD MAN DIFF? NO
[2018-05-12 07:37] LABS: WHITE BLOOD COUNT 11.8 10^3/ul (4.8-10.8)
[2018-05-12 07:37] LABS: ABNORMAL IP MESSAGE 1; BASOPHILS % 0.3 % (0.0-2.0); EOSINOPHILS # 0.2 10^3/ul (0.0-0.5); EOSINOPHILS % 1.4 % (0.0-7.0); HEMATOCRIT 25.7 % (42.0-52.0); HEMOGLOBIN 8.4 g/dl (14.0-18.0); LYMPHOCYTES # 0.9 10^3/ul (0.8-2.9); LYMPHOCYTES % 7.3 % (15.0-51.0); MEAN CORPUSCULAR HEMOGLOBIN 28.1 pg (29.0-33.0); MEAN CORPUSCULAR HGB CONC 32.7 g/dl (32.0-37.0); MEAN PLATELET VOLUME 9.8 fl (7.4-10.4); MONOCYTE # 1.6 10^3/ul (0.3-0.9); MONOCYTES % 13.8 % (0.0-11.0); NEUTROPHILS % 76.1 % (39.0-77.0); PLATELET COUNT 436 10^3/UL (140-415); POSITIVE DIFF @See below; RED BLOOD COUNT 2.99 10^6/ul (4.70-6.10); RED CELL DISTRIBUTION WIDTH 15.7 % (11.5-14.5)
[2018-05-12] MEDS: BUDESONIDE (NEB) 0.25 MG/2 ML AMP HHN ×2 (07:57→20:24)
[2018-05-12] MEDS: ALBUTEROL/IPRATROPIUM (NEB) 3 ML AMP HHN ×4 (07:57→20:24)
[2018-05-12 08:02] LABS: ANION GAP 11 (8-16); BLOOD UREA NITROGEN 37 mg/dl (7-20); CALCIUM 9.2 mg/dl (8.4-10.2); CARBON DIOXIDE 27 mmol/L (21-31); CHLORIDE 103 mmol/L (97-110); GLUCOSE 138 mg/dl (70-220); POTASSIUM 4.4 mmol/L (3.5-5.1); SODIUM 137 mmol/L (135-144)
[2018-05-12] MEDS: PHENYTOIN 100 MG CAP PO ×2 (08:14→21:01)
[2018-05-12] MEDS: GUAIFENESIN LA 600 MG TABSR PO ×2 (08:15→21:02)
[2018-05-12] MEDS: FLUOXETINE 10 MG CAP PO (08:15)
[2018-05-12] MEDS: FOLIC ACID 1 MG TAB PO (08:15)
[2018-05-12] MEDS: MULTIVITAMINS THERAPEUTIC TAB PO (08:15)
[2018-05-12] MEDS: carBAMAZepine (XR) 200 MG TABSR PO ×2 (08:15→21:01)
[2018-05-12] MEDS: FLUOXETINE 20 MG CAP PO (08:15)
[2018-05-12] MEDS: THIAMINE 100 MG TAB PO (08:15)
[2018-05-12] MEDS: GABAPENTIN 300 MG CAP PO ×2 (08:15→21:02)
[2018-05-12] MEDS: AMLODIPINE 5 MG TAB PO (08:18)
[2018-05-12] MEDS: INSULIN ASPART [NOVOLOG] 3 ML PEN SC ×7 (08:19→21:05)
[2018-05-12] MEDS: MEROPENEM 500MG/50 ML (PMX) 50 ML IVPB ×2 (10:56→21:28)
[2018-05-12] MEDS: morphine LIQ (10 MG/5 ML) CUP PO (15:18)
[2018-05-12] MEDS: SENNA TAB PO (16:21)
[2018-05-12] MEDS: DOCUSATE SODIUM 100 MG CAP PO (16:23)
[2018-05-12] MEDS: ACETYLCYSTEINE 20% 4 ML VIAL NEB ×2 (17:23→20:24)
[2018-05-12] MEDS: LORAZEPAM 2 MG INJ IV ×2 (17:56→22:19)
[2018-05-12] MEDS: QUETIAPINE 100 MG TAB PO (21:00)
[2018-05-12] MEDS: INSULIN GLARGINE [LANTus] (100 UNITS/ML) SYG SC (21:06)
[2018-05-13] MEDS: ACETYLCYSTEINE 20% 4 ML VIAL NEB ×4 (02:00→19:53)
[2018-05-13] MEDS: morphine 2 MG INJ IV ×3 (04:27→21:32)
[2018-05-13] MEDS: CLINDAMYCIN 600 MG/D5W (PMX) 50 ML IVPB ×3 (05:26→22:32)
[2018-05-13] MEDS: HEPARIN 5,000 UNIT/0.5 ML VIAL SC ×3 (05:29→21:25)
[2018-05-13 06:43] LABS: ADD MAN DIFF? NO
[2018-05-13 06:55] LABS: ABNORMAL IP MESSAGE 1; BASOPHILS % 0.3 % (0.0-2.0); EOSINOPHILS # 0.3 10^3/ul (0.0-0.5); EOSINOPHILS % 1.8 % (0.0-7.0); HEMATOCRIT 25.5 % (42.0-52.0); HEMOGLOBIN 8.3 g/dl (14.0-18.0); LYMPHOCYTES # 0.9 10^3/ul (0.8-2.9); LYMPHOCYTES % 6.6 % (15.0-51.0); MEAN CORPUSCULAR HEMOGLOBIN 27.7 pg (29.0-33.0); MEAN CORPUSCULAR HGB CONC 32.5 g/dl (32.0-37.0); MEAN PLATELET VOLUME 10.1 fl (7.4-10.4); MONOCYTE # 1.8 10^3/ul (0.3-0.9); NEUTROPHIL # 10.8 10^3/ul (1.6-7.5); NEUTROPHILS % 77.5 % (39.0-77.0); PLATELET COUNT 503 10^3/UL (140-415); POSITIVE DIFF @See below; RED CELL DISTRIBUTION WIDTH 15.1 % (11.5-14.5)
[2018-05-13 07:12] LABS: ANION GAP 14 (8-16); BLOOD UREA NITROGEN 39 mg/dl (7-20); CALCIUM 9.7 mg/dl (8.4-10.2); CARBON DIOXIDE 28 mmol/L (21-31); CHLORIDE 97 mmol/L (97-110); CREATININE 2.97 mg/dl (0.61-1.24); GLUCOSE 131 mg/dl (70-220); POTASSIUM 4.7 mmol/L (3.5-5.1); SODIUM 134 mmol/L (135-144)
[2018-05-13] MEDS: MEROPENEM 500MG/50 ML (PMX) 50 ML IVPB ×2 (08:26→21:23)
[2018-05-13] MEDS: GABAPENTIN 300 MG CAP PO ×2 (08:27→21:23)
[2018-05-13] MEDS: GUAIFENESIN LA 600 MG TABSR PO ×2 (08:27→21:23)
[2018-05-13] MEDS: PHENYTOIN 100 MG CAP PO ×2 (08:27→21:24)
[2018-05-13] MEDS: AMLODIPINE 5 MG TAB PO (08:27)
[2018-05-13] MEDS: MULTIVITAMINS THERAPEUTIC TAB PO (08:27)
[2018-05-13] MEDS: SENNA TAB PO (08:27)
[2018-05-13] MEDS: DOCUSATE SODIUM 100 MG CAP PO (08:27)
[2018-05-13] MEDS: FOLIC ACID 1 MG TAB PO (08:27)
[2018-05-13] MEDS: carBAMAZepine (XR) 200 MG TABSR PO ×2 (08:28→21:24)
[2018-05-13] MEDS: FLUOXETINE 10 MG CAP PO (08:28)
[2018-05-13] MEDS: FLUOXETINE 20 MG CAP PO (08:28)
[2018-05-13] MEDS: INSULIN ASPART [NOVOLOG] 3 ML PEN SC ×7 (08:29→21:00)
[2018-05-13] MEDS: ALBUTEROL/IPRATROPIUM (NEB) 3 ML AMP HHN ×4 (09:13→19:53)
[2018-05-13] MEDS: BUDESONIDE (NEB) 0.25 MG/2 ML AMP HHN ×2 (09:13→19:53)
[2018-05-13] MEDS: THIAMINE 100 MG TAB PO (09:57)
[2018-05-13] MEDS: QUETIAPINE 100 MG TAB PO (21:24)
[2018-05-13] MEDS: INSULIN GLARGINE [LANTus] (100 UNITS/ML) SYG SC (21:25)
[2018-05-14] MEDS: ACETYLCYSTEINE 20% 4 ML VIAL NEB ×3 (02:08→13:34)
[2018-05-14] MEDS: ALBUTEROL/IPRATROPIUM (NEB) 3 ML AMP HHN ×4 (02:09→19:30)
[2018-05-14] MEDS: CLINDAMYCIN 600 MG/D5W (PMX) 50 ML IVPB ×3 (05:12→22:13)
[2018-05-14] MEDS: HEPARIN 5,000 UNIT/0.5 ML VIAL SC ×3 (05:13→21:03)
[2018-05-14] MEDS: morphine 2 MG INJ IV ×5 (05:28→21:03)
[2018-05-14 05:50] LABS: ADD MAN DIFF? NO
[2018-05-14 05:59] LABS: WHITE BLOOD COUNT 10.8 10^3/ul (4.8-10.8)
[2018-05-14 05:59] LABS: BASOPHILS % 0.3 % (0.0-2.0); EOSINOPHILS # 0.4 10^3/ul (0.0-0.5); EOSINOPHILS % 3.4 % (0.0-7.0); HEMATOCRIT 23.4 % (42.0-52.0); HEMOGLOBIN 7.9 g/dl (14.0-18.0); LYMPHOCYTES # 0.9 10^3/ul (0.8-2.9); LYMPHOCYTES % 8.1 % (15.0-51.0); MEAN CORPUSCULAR HEMOGLOBIN 28.2 pg (29.0-33.0); MEAN CORPUSCULAR HGB CONC 33.8 g/dl (32.0-37.0); MEAN CORPUSCULAR VOLUME 83.6 fl (82.0-101.0); MEAN PLATELET VOLUME 9.5 fl (7.4-10.4); MONOCYTE # 1.3 10^3/ul (0.3-0.9); MONOCYTES % 11.7 % (0.0-11.0); NEUTROPHIL # 8.2 10^3/ul (1.6-7.5); NEUTROPHILS % 75.4 % (39.0-77.0); PLATELET COUNT 510 10^3/UL (140-415); RED CELL DISTRIBUTION WIDTH 14.8 % (11.5-14.5)
[2018-05-14 07:01] LABS: ANION GAP 16 (8-16)
[2018-05-14 07:02] LABS: BLOOD UREA NITROGEN 43 mg/dl (7-20); CALCIUM 9.5 mg/dl (8.4-10.2); CARBON DIOXIDE 27 mmol/L (21-31); CHLORIDE 98 mmol/L (97-110); GLUCOSE 52 mg/dl (70-220); POTASSIUM 4.8 mmol/L (3.5-5.1); SODIUM 136 mmol/L (135-144)
[2018-05-14] MEDS: INSULIN ASPART [NOVOLOG] 3 ML PEN SC ×7 (08:00→21:00)
[2018-05-14] MEDS: BUDESONIDE (NEB) 0.25 MG/2 ML AMP HHN ×3 (08:10→19:42)
[2018-05-14] MEDS: MEROPENEM 500MG/50 ML (PMX) 50 ML IVPB ×2 (09:39→20:43)
[2018-05-14] MEDS: PHENYTOIN 100 MG CAP PO ×2 (09:39→20:44)
[2018-05-14] MEDS: FOLIC ACID 1 MG TAB PO (09:39)
[2018-05-14] MEDS: DOCUSATE SODIUM 100 MG CAP PO (09:39)
[2018-05-14] MEDS: SENNA TAB PO (09:39)
[2018-05-14] MEDS: GABAPENTIN 300 MG CAP PO ×2 (09:39→20:44)
[2018-05-14] MEDS: carBAMAZepine (XR) 200 MG TABSR PO ×2 (09:39→20:44)
[2018-05-14] MEDS: MULTIVITAMINS THERAPEUTIC TAB PO (09:39)
[2018-05-14] MEDS: FLUOXETINE 10 MG CAP PO (09:40)
[2018-05-14] MEDS: GUAIFENESIN LA 600 MG TABSR PO ×2 (09:40→20:44)
[2018-05-14] MEDS: FLUOXETINE 20 MG CAP PO (09:40)
[2018-05-14] MEDS: THIAMINE 100 MG TAB PO (09:40)
[2018-05-14] MEDS: AMLODIPINE 5 MG TAB PO (09:40)
[2018-05-14] MEDS: SOD CHLORIDE 0.9% 1,000 ML IV (12:30)
[2018-05-14] MEDS: ONDANSETRON 4 MG INJ IV (18:39)
[2018-05-14] MEDS: QUETIAPINE 100 MG TAB PO (20:44)
[2018-05-14] MEDS: INSULIN GLARGINE [LANTus] (100 UNITS/ML) SYG SC (20:46)
[2018-05-14] MEDS: LORAZEPAM 2 MG INJ IV (22:21)
[2018-05-15] MEDS: ALBUTEROL/IPRATROPIUM (NEB) 3 ML AMP HHN ×4 (02:30→20:50)
[2018-05-15] MEDS: ACETYLCYSTEINE 20% 4 ML VIAL NEB ×5 (02:32→20:50)
[2018-05-15] MEDS: CLINDAMYCIN 600 MG/D5W (PMX) 50 ML IVPB ×3 (05:20→21:55)
[2018-05-15] MEDS: HEPARIN 5,000 UNIT/0.5 ML VIAL SC ×3 (05:22→21:56)
[2018-05-15] MEDS: INSULIN ASPART [NOVOLOG] 3 ML PEN SC ×7 (08:00→21:00)
[2018-05-15] MEDS: morphine 2 MG INJ IV ×4 (08:00→20:35)
[2018-05-15] MEDS: SOD CHLORIDE 0.9% 1,000 ML IV ×2 (08:30→18:24)
[2018-05-15] MEDS: SENNA TAB PO (09:00)
[2018-05-15] MEDS: DOCUSATE SODIUM 100 MG CAP PO (09:00)
[2018-05-15] MEDS: BUDESONIDE (NEB) 0.25 MG/2 ML AMP HHN ×2 (09:00→20:50)
[2018-05-15] MEDS: MEROPENEM 500MG/50 ML (PMX) 50 ML IVPB ×2 (09:00→20:48)
[2018-05-15] MEDS: FOLIC ACID 1 MG TAB PO (09:00)
[2018-05-15] MEDS: PHENYTOIN 100 MG CAP PO ×2 (09:02→20:39)
[2018-05-15 09:09] LABS: ADD MAN DIFF? NO
[2018-05-15] MEDS: AMLODIPINE 5 MG TAB PO (09:09)
[2018-05-15] MEDS: GABAPENTIN 300 MG CAP PO ×2 (09:09→20:39)
[2018-05-15] MEDS: FLUOXETINE 20 MG CAP PO (09:09)
[2018-05-15] MEDS: THIAMINE 100 MG TAB PO (09:10)
[2018-05-15 09:11] LABS: WHITE BLOOD COUNT 11.1 10^3/ul (4.8-10.8)
[2018-05-15 09:11] LABS: BASOPHIL # 0.1 10^3/ul (0.0-0.1); BASOPHILS % 0.5 % (0.0-2.0); EOSINOPHILS # 0.4 10^3/ul (0.0-0.5); HEMOGLOBIN 8.3 g/dl (14.0-18.0); LYMPHOCYTES # 0.8 10^3/ul (0.8-2.9); LYMPHOCYTES % 6.8 % (15.0-51.0); MEAN CORPUSCULAR HGB CONC 33.2 g/dl (32.0-37.0); MEAN CORPUSCULAR VOLUME 84.5 fl (82.0-101.0); MEAN PLATELET VOLUME 9.9 fl (7.4-10.4); MONOCYTE # 1.1 10^3/ul (0.3-0.9); MONOCYTES % 9.9 % (0.0-11.0); NEUTROPHIL # 8.6 10^3/ul (1.6-7.5); NEUTROPHILS % 77.5 % (39.0-77.0); PLATELET COUNT 626 10^3/UL (140-415); RED BLOOD COUNT 2.96 10^6/ul (4.70-6.10); RED CELL DISTRIBUTION WIDTH 14.8 % (11.5-14.5)
[2018-05-15] MEDS: FLUOXETINE 10 MG CAP PO (09:11)
[2018-05-15] MEDS: MULTIVITAMINS THERAPEUTIC TAB PO (09:11)
[2018-05-15] MEDS: GUAIFENESIN LA 600 MG TABSR PO ×2 (09:11→20:39)
[2018-05-15] MEDS: carBAMAZepine (XR) 200 MG TABSR PO ×2 (09:14→20:39)
[2018-05-15 09:54] LABS: ANION GAP 14 (8-16); BLOOD UREA NITROGEN 48 mg/dl (7-20); CALCIUM 9.7 mg/dl (8.4-10.2); CARBON DIOXIDE 27 mmol/L (21-31); CHLORIDE 99 mmol/L (97-110); CREATININE 3.09 mg/dl (0.61-1.24); GLUCOSE 114 mg/dl (70-220); POTASSIUM 5.2 mmol/L (3.5-5.1); SODIUM 135 mmol/L (135-144)
[2018-05-15 09:56] LABS: MAGNESIUM 1.9 mg/dl (1.7-2.5)
[2018-05-15 09:56] LABS: PHOSPHORUS 8.1 mg/dl (2.5-4.9)
[2018-05-15] MEDS: QUETIAPINE 100 MG TAB PO (20:39)
[2018-05-15] MEDS: INSULIN GLARGINE [LANTus] (100 UNITS/ML) SYG SC (20:40)
[2018-05-16] MEDS: ALBUTEROL/IPRATROPIUM (NEB) 3 ML AMP HHN ×4 (02:27→20:32)
[2018-05-16] MEDS: ACETYLCYSTEINE 20% 4 ML VIAL NEB ×4 (02:27→20:33)
[2018-05-16] MEDS: morphine 2 MG INJ IV ×4 (05:22→20:40)
[2018-05-16] MEDS: CLINDAMYCIN 600 MG/D5W (PMX) 50 ML IVPB ×3 (05:22→22:11)
[2018-05-16] MEDS: HEPARIN 5,000 UNIT/0.5 ML VIAL SC ×3 (05:35→22:12)
[2018-05-16 06:44] LABS: ADD MAN DIFF? NO
[2018-05-16 06:51] LABS: BASOPHIL # 0.1 10^3/ul (0.0-0.1); BASOPHILS % 0.6 % (0.0-2.0); EOSINOPHILS # 0.5 10^3/ul (0.0-0.5); EOSINOPHILS % 4.6 % (0.0-7.0); HEMATOCRIT 24.9 % (42.0-52.0); HEMOGLOBIN 8.2 g/dl (14.0-18.0); LYMPHOCYTES # 0.9 10^3/ul (0.8-2.9); LYMPHOCYTES % 9.6 % (15.0-51.0); MEAN CORPUSCULAR HEMOGLOBIN 27.8 pg (29.0-33.0); MEAN CORPUSCULAR HGB CONC 32.9 g/dl (32.0-37.0); MEAN CORPUSCULAR VOLUME 84.4 fl (82.0-101.0); MEAN PLATELET VOLUME 9.4 fl (7.4-10.4); MONOCYTE # 0.8 10^3/ul (0.3-0.9); MONOCYTES % 7.8 % (0.0-11.0); NEUTROPHIL # 7.4 10^3/ul (1.6-7.5); NEUTROPHILS % 75.6 % (39.0-77.0); PLATELET COUNT 630 10^3/UL (140-415); RED BLOOD COUNT 2.95 10^6/ul (4.70-6.10); RED CELL DISTRIBUTION WIDTH 14.9 % (11.5-14.5)
[2018-05-16 06:51] LABS: WHITE BLOOD COUNT 9.8 10^3/ul (4.8-10.8)
[2018-05-16 07:19] LABS: ANION GAP 14 (8-16); BLOOD UREA NITROGEN 48 mg/dl (7-20); CALCIUM 9.7 mg/dl (8.4-10.2); CARBON DIOXIDE 28 mmol/L (21-31); CHLORIDE 100 mmol/L (97-110); CREATININE 3.09 mg/dl (0.61-1.24); GLUCOSE 133 mg/dl (70-220); SODIUM 137 mmol/L (135-144)
[2018-05-16 07:21] LABS: PHOSPHORUS 7.2 mg/dl (2.5-4.9)
[2018-05-16 07:21] LABS: MAGNESIUM 1.7 mg/dl (1.7-2.5)
[2018-05-16 07:31] LABS: POTASSIUM 5.2 mmol/L (3.5-5.1)
[2018-05-16] MEDS: FLUOXETINE 10 MG CAP PO (08:48)
[2018-05-16] MEDS: FLUOXETINE 20 MG CAP PO (08:48)
[2018-05-16] MEDS: FOLIC ACID 1 MG TAB PO (08:48)
[2018-05-16] MEDS: THIAMINE 100 MG TAB PO (08:48)
[2018-05-16] MEDS: DOCUSATE SODIUM 100 MG CAP PO (08:49)
[2018-05-16] MEDS: GUAIFENESIN LA 600 MG TABSR PO ×2 (08:49→20:40)
[2018-05-16] MEDS: carBAMAZepine (XR) 200 MG TABSR PO ×2 (08:49→20:40)
[2018-05-16] MEDS: AMLODIPINE 5 MG TAB PO (08:49)
[2018-05-16] MEDS: PHENYTOIN 100 MG CAP PO ×2 (08:49→20:41)
[2018-05-16] MEDS: MULTIVITAMINS THERAPEUTIC TAB PO (08:49)
[2018-05-16] MEDS: GABAPENTIN 300 MG CAP PO ×2 (08:49→20:41)
[2018-05-16] MEDS: MEROPENEM 500MG/50 ML (PMX) 50 ML IVPB ×2 (08:50→20:40)
[2018-05-16] MEDS: SENNA TAB PO (08:50)
[2018-05-16] MEDS: INSULIN ASPART [NOVOLOG] 3 ML PEN SC ×7 (08:51→20:38)
[2018-05-16] MEDS: BUDESONIDE (NEB) 0.25 MG/2 ML AMP HHN (09:29)
[2018-05-16] MEDS: NA POLYST SULFON 15 GM/60 ML BTL PO (11:46)
[2018-05-16] MEDS: COLLAGENASE 5 GM (UD JAR) TOP (14:47)
[2018-05-16] MEDS: QUETIAPINE 100 MG TAB PO (20:40)
[2018-05-16] MEDS: L ACIDOPHIL/B LACTIS/B LONGUM CAPSULE PO (20:41)
[2018-05-16] MEDS: INSULIN GLARGINE [LANTus] (100 UNITS/ML) SYG SC (20:42)
[2018-05-17] MEDS: ACETYLCYSTEINE 20% 4 ML VIAL NEB ×4 (01:42→19:27)
[2018-05-17] MEDS: ALBUTEROL/IPRATROPIUM (NEB) 3 ML AMP HHN ×4 (01:42→19:27)
[2018-05-17] MEDS: HEPARIN 5,000 UNIT/0.5 ML VIAL SC (06:06)
[2018-05-17] MEDS: CLINDAMYCIN 600 MG/D5W (PMX) 50 ML IVPB ×3 (06:06→21:55)
[2018-05-17] MEDS: INSULIN ASPART [NOVOLOG] 3 ML PEN SC ×7 (08:00→21:00)
[2018-05-17 08:22] LABS: ADD MAN DIFF? NO
[2018-05-17 08:26] LABS: BASOPHIL # 0.1 10^3/ul (0.0-0.1); BASOPHILS % 0.9 % (0.0-2.0); EOSINOPHILS # 0.5 10^3/ul (0.0-0.5); EOSINOPHILS % 5.6 % (0.0-7.0); HEMOGLOBIN 8.2 g/dl (14.0-18.0); LYMPHOCYTES # 0.9 10^3/ul (0.8-2.9); LYMPHOCYTES % 9.9 % (15.0-51.0); MEAN CORPUSCULAR HEMOGLOBIN 27.7 pg (29.0-33.0); MEAN CORPUSCULAR HGB CONC 32.8 g/dl (32.0-37.0); MEAN CORPUSCULAR VOLUME 84.5 fl (82.0-101.0); MEAN PLATELET VOLUME 9.5 fl (7.4-10.4); MONOCYTE # 0.8 10^3/ul (0.3-0.9); MONOCYTES % 8.8 % (0.0-11.0); NEUTROPHIL # 6.5 10^3/ul (1.6-7.5); NEUTROPHILS % 72.9 % (39.0-77.0); PLATELET COUNT 703 10^3/UL (140-415); RED BLOOD COUNT 2.96 10^6/ul (4.70-6.10)
[2018-05-17] MEDS: BUDESONIDE (NEB) 0.25 MG/2 ML AMP HHN ×3 (08:31→19:27)
[2018-05-17] MEDS: THIAMINE 100 MG TAB PO (08:39)
[2018-05-17] MEDS: PHENYTOIN 100 MG CAP PO ×2 (08:39→21:11)
[2018-05-17] MEDS: GABAPENTIN 300 MG CAP PO ×2 (08:39→21:11)
[2018-05-17] MEDS: FOLIC ACID 1 MG TAB PO (08:40)
[2018-05-17] MEDS: DOCUSATE SODIUM 100 MG CAP PO (08:40)
[2018-05-17] MEDS: SENNA TAB PO (08:40)
[2018-05-17] MEDS: FLUOXETINE 20 MG CAP PO (08:40)
[2018-05-17] MEDS: L ACIDOPHIL/B LACTIS/B LONGUM CAPSULE PO ×2 (08:40→21:11)
[2018-05-17] MEDS: carBAMAZepine (XR) 200 MG TABSR PO ×2 (08:40→21:10)
[2018-05-17] MEDS: COLLAGENASE 5 GM (UD JAR) TOP (08:41)
[2018-05-17] MEDS: MULTIVITAMINS THERAPEUTIC TAB PO (08:41)
[2018-05-17] MEDS: GUAIFENESIN LA 600 MG TABSR PO ×2 (08:41→21:11)
[2018-05-17] MEDS: MEROPENEM 500MG/50 ML (PMX) 50 ML IVPB ×2 (08:43→21:07)
[2018-05-17] MEDS: FLUOXETINE 10 MG CAP PO (08:47)
[2018-05-17] MEDS: AMLODIPINE 5 MG TAB PO (08:48)
[2018-05-17 08:51] LABS: ANION GAP 12 (5-13); BLOOD UREA NITROGEN 53 mg/dl (7-20); CALCIUM 9.6 mg/dl (8.4-10.2); CARBON DIOXIDE 24 mmol/L (21-31); CHLORIDE 103 mmol/L (97-110); CREATININE 2.66 mg/dl (0.61-1.24); GLUCOSE 81 mg/dl (70-220); MAGNESIUM 1.8 mg/dl (1.7-2.5); POTASSIUM 5.1 mmol/L (3.5-5.1); SODIUM 139 mmol/L (135-144)
[2018-05-17] MEDS: morphine 2 MG INJ IV ×4 (09:30→21:12)
[2018-05-17] MEDS: HEPARIN SODIUM 5,000 UNIT/ML VIAL SC ×2 (13:39→21:17)
[2018-05-17] MEDS ORDERED: HEPARIN 5,000 UNIT/0.5 ML VIAL (21:01)
[2018-05-17] MEDS: QUETIAPINE 100 MG TAB PO (21:11)
[2018-05-17] MEDS: INSULIN GLARGINE [LANTus] (100 UNITS/ML) SYG SC (21:17)
[2018-05-17] MEDS: hydrALAzine 20 MG INJ IV (21:56)
[2018-05-18] MEDS: ALBUTEROL/IPRATROPIUM (NEB) 3 ML AMP HHN ×4 (01:59→19:33)
[2018-05-18] MEDS: ACETYLCYSTEINE 20% 4 ML VIAL NEB ×5 (02:00→19:46)
[2018-05-18] MEDS ORDERED: HEPARIN 5,000 UNIT/0.5 ML VIAL ×2 (05:38→11:54)
[2018-05-18] MEDS: CLINDAMYCIN 600 MG/D5W (PMX) 50 ML IVPB ×3 (05:41→21:40)
[2018-05-18] MEDS: morphine 2 MG INJ IV ×4 (05:42→20:22)
[2018-05-18] MEDS: HEPARIN SODIUM 5,000 UNIT/ML VIAL SC ×2 (05:44→13:29)
[2018-05-18] MEDS: INSULIN ASPART [NOVOLOG] 3 ML PEN SC ×7 (08:00→20:40)
[2018-05-18] MEDS: MEROPENEM 500MG/50 ML (PMX) 50 ML IVPB (08:45)
[2018-05-18] MEDS: DOCUSATE SODIUM 100 MG CAP PO (08:45)
[2018-05-18] MEDS: L ACIDOPHIL/B LACTIS/B LONGUM CAPSULE PO ×2 (08:45→20:24)
[2018-05-18] MEDS: FLUOXETINE 10 MG CAP PO (08:45)
[2018-05-18] MEDS: GUAIFENESIN LA 600 MG TABSR PO ×2 (08:45→20:24)
[2018-05-18] MEDS: PHENYTOIN 100 MG CAP PO ×2 (08:45→20:24)
[2018-05-18] MEDS: carBAMAZepine (XR) 200 MG TABSR PO ×2 (08:46→20:24)
[2018-05-18] MEDS: SENNA TAB PO (08:46)
[2018-05-18] MEDS: GABAPENTIN 300 MG CAP PO ×2 (08:46→20:24)
[2018-05-18] MEDS: FOLIC ACID 1 MG TAB PO (08:46)
[2018-05-18] MEDS: FLUOXETINE 20 MG CAP PO (08:46)
[2018-05-18] MEDS: COLLAGENASE 5 GM (UD JAR) TOP (08:47)
[2018-05-18] MEDS: THIAMINE 100 MG TAB PO (08:47)
[2018-05-18] MEDS: AMLODIPINE 5 MG TAB PO (08:47)
[2018-05-18] MEDS: MULTIVITAMINS THERAPEUTIC TAB PO (08:57)
[2018-05-18] MEDS: BUDESONIDE (NEB) 0.25 MG/2 ML AMP HHN ×2 (09:58→19:33)
[2018-05-18] MEDS: CEFTRIAXONE 1 GM/50 ML (PMX) 50 ML IVPB (14:09)
[2018-05-18] MEDS: QUETIAPINE 100 MG TAB PO (20:24)
[2018-05-18] MEDS: INSULIN GLARGINE [LANTus] (100 UNITS/ML) SYG SC (20:26)
[2018-05-19] MEDS: ACETYLCYSTEINE 20% 4 ML VIAL NEB ×4 (02:00→19:31)
[2018-05-19] MEDS: CLINDAMYCIN 600 MG/D5W (PMX) 50 ML IVPB ×3 (05:15→21:09)
[2018-05-19] MEDS: morphine 2 MG INJ IV ×4 (05:24→21:09)
[2018-05-19 07:38] LABS: ADD MAN DIFF? NO
[2018-05-19 07:39] LABS: BASOPHIL # 0.1 10^3/ul (0.0-0.1); EOSINOPHILS # 0.5 10^3/ul (0.0-0.5); EOSINOPHILS % 6.7 % (0.0-7.0); HEMATOCRIT 26.9 % (42.0-52.0); HEMOGLOBIN 8.8 g/dl (14.0-18.0); LYMPHOCYTES # 0.9 10^3/ul (0.8-2.9); LYMPHOCYTES % 12.9 % (15.0-51.0); MEAN CORPUSCULAR HEMOGLOBIN 27.3 pg (29.0-33.0); MEAN CORPUSCULAR HGB CONC 32.7 g/dl (32.0-37.0); MEAN CORPUSCULAR VOLUME 83.5 fl (82.0-101.0); MEAN PLATELET VOLUME 9.3 fl (7.4-10.4); MONOCYTE # 0.7 10^3/ul (0.3-0.9); MONOCYTES % 9.1 % (0.0-11.0); NEUTROPHIL # 4.9 10^3/ul (1.6-7.5); NEUTROPHILS % 68.9 % (39.0-77.0); PLATELET COUNT 774 10^3/UL (140-415); RED BLOOD COUNT 3.22 10^6/ul (4.70-6.10)
[2018-05-19 07:39] LABS: WHITE BLOOD COUNT 7.1 10^3/ul (4.8-10.8)
[2018-05-19] MEDS: INSULIN ASPART [NOVOLOG] 3 ML PEN SC ×7 (08:00→21:00)
[2018-05-19] MEDS: ALBUTEROL/IPRATROPIUM (NEB) 3 ML AMP HHN ×3 (08:01→19:30)
[2018-05-19 08:05] LABS: ANION GAP 13 (5-13); BLOOD UREA NITROGEN 53 mg/dl (7-20); CARBON DIOXIDE 24 mmol/L (21-31); CHLORIDE 100 mmol/L (97-110); CREATININE 2.68 mg/dl (0.61-1.24); GLUCOSE 92 mg/dl (70-220); POTASSIUM 5.3 mmol/L (3.5-5.1); SODIUM 137 mmol/L (135-144)
[2018-05-19 08:07] LABS: MAGNESIUM 1.7 mg/dl (1.7-2.5)
[2018-05-19 08:07] LABS: PHOSPHORUS 7.5 mg/dl (2.5-4.9)
[2018-05-19] MEDS: BUDESONIDE (NEB) 0.25 MG/2 ML AMP HHN ×2 (08:10→19:30)
[2018-05-19] MEDS: COLLAGENASE 5 GM (UD JAR) TOP (08:46)
[2018-05-19] MEDS: DOCUSATE SODIUM 100 MG CAP PO (08:47)
[2018-05-19] MEDS: THIAMINE 100 MG TAB PO (08:47)
[2018-05-19] MEDS: L ACIDOPHIL/B LACTIS/B LONGUM CAPSULE PO ×2 (08:47→20:56)
[2018-05-19] MEDS: GABAPENTIN 300 MG CAP PO ×2 (08:47→20:57)
[2018-05-19] MEDS: FOLIC ACID 1 MG TAB PO (08:47)
[2018-05-19] MEDS: SENNA TAB PO (08:47)
[2018-05-19] MEDS: MULTIVITAMINS THERAPEUTIC TAB PO (08:47)
[2018-05-19] MEDS: PHENYTOIN 100 MG CAP PO ×2 (08:48→21:10)
[2018-05-19] MEDS: FLUOXETINE 10 MG CAP PO (08:48)
[2018-05-19] MEDS: FLUOXETINE 20 MG CAP PO (08:48)
[2018-05-19] MEDS: GUAIFENESIN LA 600 MG TABSR PO ×2 (08:48→20:56)
[2018-05-19] MEDS: carBAMAZepine (XR) 200 MG TABSR PO ×2 (08:48→20:56)
[2018-05-19] MEDS: AMLODIPINE 5 MG TAB PO (08:49)
[2018-05-19] MEDS: ALTEPLASE (CATHFLO) 2 MG INJ CATHETER (12:05)
[2018-05-19] MEDS: NA POLYST SULFON 15 GM/60 ML BTL PO (13:08)
[2018-05-19] MEDS: CEFTRIAXONE 1 GM/50 ML (PMX) 50 ML IVPB (13:08)
[2018-05-19] MEDS: INSULIN GLARGINE [LANTus] (100 UNITS/ML) SYG SC (20:58)
[2018-05-19] MEDS: QUETIAPINE 100 MG TAB PO (21:10)
[2018-05-20] MEDS: ACETYLCYSTEINE 20% 4 ML VIAL NEB ×4 (02:00→20:00)
[2018-05-20] MEDS: CLINDAMYCIN 600 MG/D5W (PMX) 50 ML IVPB ×3 (05:15→22:45)
[2018-05-20 07:02] LABS: ANION GAP 12 (5-13); BLOOD UREA NITROGEN 54 mg/dl (7-20); CALCIUM 9.7 mg/dl (8.4-10.2); CARBON DIOXIDE 25 mmol/L (21-31); CHLORIDE 100 mmol/L (97-110); CREATININE 2.67 mg/dl (0.61-1.24); GLUCOSE 107 mg/dl (70-220); POTASSIUM 5.2 mmol/L (3.5-5.1); SODIUM 137 mmol/L (135-144)
[2018-05-20] MEDS: ALBUTEROL/IPRATROPIUM (NEB) 3 ML AMP HHN ×3 (08:07→20:40)
[2018-05-20] MEDS: BUDESONIDE (NEB) 0.25 MG/2 ML AMP HHN ×2 (08:19→20:40)
[2018-05-20] MEDS: SENNA TAB PO (09:00)
[2018-05-20] MEDS: DOCUSATE SODIUM 100 MG CAP PO (09:00)
[2018-05-20] MEDS: GABAPENTIN 300 MG CAP PO ×2 (09:07→20:30)
[2018-05-20] MEDS: AMLODIPINE 5 MG TAB PO (09:08)
[2018-05-20] MEDS: FOLIC ACID 1 MG TAB PO (09:09)
[2018-05-20] MEDS: FLUOXETINE 20 MG CAP PO (09:10)
[2018-05-20] MEDS: THIAMINE 100 MG TAB PO (09:10)
[2018-05-20] MEDS: FLUOXETINE 10 MG CAP PO (09:10)
[2018-05-20] MEDS: carBAMAZepine (XR) 200 MG TABSR PO ×2 (09:10→20:30)
[2018-05-20] MEDS: GUAIFENESIN LA 600 MG TABSR PO ×2 (09:10→20:30)
[2018-05-20] MEDS: L ACIDOPHIL/B LACTIS/B LONGUM CAPSULE PO ×2 (09:11→20:30)
[2018-05-20] MEDS: COLLAGENASE 5 GM (UD JAR) TOP (09:11)
[2018-05-20] MEDS: MULTIVITAMINS THERAPEUTIC TAB PO (09:11)
[2018-05-20] MEDS: PHENYTOIN 100 MG CAP PO ×2 (09:11→20:30)
[2018-05-20] MEDS: morphine 2 MG INJ IV ×3 (09:13→18:54)
[2018-05-20] MEDS: INSULIN ASPART [NOVOLOG] 3 ML PEN SC ×7 (09:15→20:31)
[2018-05-20] MEDS: NA POLYST SULFON 15 GM/60 ML BTL PO ×2 (12:33→13:08)
[2018-05-20] MEDS: CEFTRIAXONE 1 GM/50 ML (PMX) 50 ML IVPB (12:34)
[2018-05-20] MEDS ORDERED: HEPARIN 5,000 UNIT/0.5 ML VIAL ×2 (14:20→22:43)
[2018-05-20] MEDS: HEPARIN SODIUM 5,000 UNIT/ML VIAL SC ×2 (14:28→22:46)
[2018-05-20 14:29] LABS: PHOSPHORUS 6.9 mg/dl (2.5-4.9)
[2018-05-20] MEDS: CEPASTAT LOZENGE MT (14:37)
[2018-05-20] MEDS: QUETIAPINE 100 MG TAB PO (20:31)
[2018-05-20] MEDS: INSULIN GLARGINE [LANTus] (100 UNITS/ML) SYG SC (20:34)
[2018-05-21] MEDS: ACETYLCYSTEINE 20% 4 ML VIAL NEB ×3 (02:00→13:41)
[2018-05-21] MEDS ORDERED: HEPARIN 5,000 UNIT/0.5 ML VIAL ×3 (05:14→22:03)
[2018-05-21] MEDS: morphine 2 MG INJ IV ×4 (05:17→20:32)
[2018-05-21] MEDS: CLINDAMYCIN 600 MG/D5W (PMX) 50 ML IVPB ×2 (05:17→13:30)
[2018-05-21] MEDS: HEPARIN SODIUM 5,000 UNIT/ML VIAL SC ×3 (05:18→22:30)
[2018-05-21 06:57] LABS: ADD MAN DIFF? NO
[2018-05-21 07:05] LABS: WHITE BLOOD COUNT 6.8 10^3/ul (4.8-10.8)
[2018-05-21 07:05] LABS: BASOPHIL # 0.1 10^3/ul (0.0-0.1); BASOPHILS % 1.3 % (0.0-2.0); EOSINOPHILS # 0.5 10^3/ul (0.0-0.5); EOSINOPHILS % 7.7 % (0.0-7.0); HEMATOCRIT 28.4 % (42.0-52.0); HEMOGLOBIN 9.2 g/dl (14.0-18.0); LYMPHOCYTES % 15.3 % (15.0-51.0); MEAN CORPUSCULAR HEMOGLOBIN 27.5 pg (29.0-33.0); MEAN CORPUSCULAR HGB CONC 32.4 g/dl (32.0-37.0); MEAN PLATELET VOLUME 9.6 fl (7.4-10.4); MONOCYTE # 0.5 10^3/ul (0.3-0.9); MONOCYTES % 7.7 % (0.0-11.0); NEUTROPHIL # 4.5 10^3/ul (1.6-7.5); NEUTROPHILS % 66.8 % (39.0-77.0); RED BLOOD COUNT 3.34 10^6/ul (4.70-6.10); RED CELL DISTRIBUTION WIDTH 15.1 % (11.5-14.5)
[2018-05-21 07:16] LABS: PLATELET COUNT 820 10^3/UL (140-415)
[2018-05-21 07:23] LABS: PHOSPHORUS 7.9 mg/dl (2.5-4.9)
[2018-05-21 07:23] LABS: MAGNESIUM 1.5 mg/dl (1.7-2.5)
[2018-05-21 07:26] LABS: ANION GAP 13 (5-13); BLOOD UREA NITROGEN 54 mg/dl (7-20); CALCIUM 9.8 mg/dl (8.4-10.2); CARBON DIOXIDE 26 mmol/L (21-31); CHLORIDE 98 mmol/L (97-110); CREATININE 2.69 mg/dl (0.61-1.24); GLUCOSE 109 mg/dl (70-220); POTASSIUM 4.9 mmol/L (3.5-5.1); SODIUM 137 mmol/L (135-144)
[2018-05-21] MEDS: INSULIN ASPART [NOVOLOG] 3 ML PEN SC ×7 (08:00→20:32)
[2018-05-21] MEDS: ALBUTEROL/IPRATROPIUM (NEB) 3 ML AMP HHN ×2 (08:08→13:38)
[2018-05-21] MEDS: BUDESONIDE (NEB) 0.25 MG/2 ML AMP HHN ×2 (08:09→20:49)
[2018-05-21] MEDS: PHENYTOIN 100 MG CAP PO ×2 (08:19→20:33)
[2018-05-21] MEDS: GABAPENTIN 300 MG CAP PO ×2 (08:19→20:32)
[2018-05-21] MEDS: GUAIFENESIN LA 600 MG TABSR PO ×2 (08:19→22:29)
[2018-05-21] MEDS: COLLAGENASE 5 GM (UD JAR) TOP (08:19)
[2018-05-21] MEDS: FLUOXETINE 20 MG CAP PO (08:19)
[2018-05-21] MEDS: MULTIVITAMINS THERAPEUTIC TAB PO (08:20)
[2018-05-21] MEDS: FOLIC ACID 1 MG TAB PO (08:20)
[2018-05-21] MEDS: SENNA TAB PO (08:20)
[2018-05-21] MEDS: DOCUSATE SODIUM 100 MG CAP PO (08:20)
[2018-05-21] MEDS: L ACIDOPHIL/B LACTIS/B LONGUM CAPSULE PO ×2 (08:20→20:33)
[2018-05-21] MEDS: carBAMAZepine (XR) 200 MG TABSR PO ×2 (08:20→20:33)
[2018-05-21] MEDS: FLUOXETINE 10 MG CAP PO (08:20)
[2018-05-21] MEDS: AMLODIPINE 5 MG TAB PO (08:21)
[2018-05-21] MEDS: THIAMINE 100 MG TAB PO (09:59)
[2018-05-21] MEDS: CEFTRIAXONE 1 GM/50 ML (PMX) 50 ML IVPB (12:34)
[2018-05-21] MEDS: SOD CHLORIDE 0.9% 1,000 ML IV (17:23)
[2018-05-21] MEDS: CLINDAMYCIN 150 MG CAP PO ×2 (19:18→23:59)
[2018-05-21] MEDS: hydrALAzine 20 MG INJ IV (20:32)
[2018-05-21] MEDS: LACTOBACILLUS RHAMNOSUS CAP PO (20:33)
[2018-05-21] MEDS: INSULIN GLARGINE [LANTus] (100 UNITS/ML) SYG SC (20:36)
[2018-05-21] MEDS: QUETIAPINE 100 MG TAB PO (22:29)
[2018-05-22] MEDS ORDERED: HEPARIN 5,000 UNIT/0.5 ML VIAL ×3 (05:50→21:23)
[2018-05-22] MEDS: HEPARIN SODIUM 5,000 UNIT/ML VIAL SC ×3 (05:53→21:34)
[2018-05-22] MEDS: CLINDAMYCIN 150 MG CAP PO ×3 (05:53→17:19)
[2018-05-22 06:26] LABS: ADD MAN DIFF? NO
[2018-05-22 06:32] LABS: BASOPHIL # 0.1 10^3/ul (0.0-0.1); BASOPHILS % 1.5 % (0.0-2.0); EOSINOPHILS # 0.5 10^3/ul (0.0-0.5); HEMATOCRIT 27.8 % (42.0-52.0); HEMOGLOBIN 9.2 g/dl (14.0-18.0); LYMPHOCYTES % 14.6 % (15.0-51.0); MEAN CORPUSCULAR HEMOGLOBIN 27.7 pg (29.0-33.0); MEAN CORPUSCULAR HGB CONC 33.1 g/dl (32.0-37.0); MEAN CORPUSCULAR VOLUME 83.7 fl (82.0-101.0); MEAN PLATELET VOLUME 9.5 fl (7.4-10.4); MONOCYTE # 0.6 10^3/ul (0.3-0.9); MONOCYTES % 8.6 % (0.0-11.0); NEUTROPHIL # 4.4 10^3/ul (1.6-7.5); NEUTROPHILS % 66.5 % (39.0-77.0); RED BLOOD COUNT 3.32 10^6/ul (4.70-6.10); RED CELL DISTRIBUTION WIDTH 15.2 % (11.5-14.5)
[2018-05-22 06:32] LABS: WHITE BLOOD COUNT 6.7 10^3/ul (4.8-10.8)
[2018-05-22 07:02] LABS: ALANINE AMINOTRANSFERASE 18 IU/L (13-69); ALBUMIN 4.1 g/dl (3.3-4.9); ALBUMIN/GLOBULIN RATIO 1.07; ALKALINE PHOSPHATASE 246 IU/L (42-121); ANION GAP 13 (5-13); ASPARTATE AMINO TRANSFERASE 25 IU/L (15-46); BILIRUBIN,INDIRECT 0.2 mg/dl (0-1.1); BILIRUBIN,TOTAL 0.2 mg/dl (0.2-1.3); BLOOD UREA NITROGEN 47 mg/dl (7-20); CALCIUM 9.6 mg/dl (8.4-10.2); CARBON DIOXIDE 23 mmol/L (21-31); CHLORIDE 102 mmol/L (97-110); CREATININE 2.35 mg/dl (0.61-1.24); GLUCOSE 88 mg/dl (70-220); POTASSIUM 4.5 mmol/L (3.5-5.1); SODIUM 138 mmol/L (135-144); TOTAL PROTEIN 7.9 g/dl (6.1-8.1)
[2018-05-22 07:03] LABS: PHENYTOIN (DILANTIN) 19.1 ug/ml (10.0-20.0)
[2018-05-22 07:03] LABS: CARBAMAZEPINE (TEGRETOL) 3.1 ug/ml (8.0-12.0)
[2018-05-22 07:06] LABS: PLATELET COUNT 770 10^3/UL (140-415)
[2018-05-22] MEDS: INSULIN ASPART [NOVOLOG] 3 ML PEN SC ×7 (08:00→20:37)
[2018-05-22] MEDS: MULTIVITAMINS THERAPEUTIC TAB PO (08:33)
[2018-05-22] MEDS: GUAIFENESIN LA 600 MG TABSR PO ×2 (08:34→20:34)
[2018-05-22] MEDS: LACTOBACILLUS RHAMNOSUS CAP PO ×2 (08:34→20:40)
[2018-05-22] MEDS: THIAMINE 100 MG TAB PO (08:34)
[2018-05-22] MEDS: QUETIAPINE 100 MG TAB PO (08:34)
[2018-05-22] MEDS: FLUOXETINE 20 MG CAP PO (08:35)
[2018-05-22] MEDS: FLUOXETINE 10 MG CAP PO (08:35)
[2018-05-22] MEDS: PHENYTOIN 100 MG CAP PO ×2 (08:35→20:35)
[2018-05-22] MEDS: FOLIC ACID 1 MG TAB PO (08:35)
[2018-05-22] MEDS: AMLODIPINE 5 MG TAB PO (08:36)
[2018-05-22] MEDS: GABAPENTIN 300 MG CAP PO ×2 (08:37→20:34)
[2018-05-22] MEDS: DOCUSATE SODIUM 100 MG CAP PO (08:37)
[2018-05-22] MEDS: carBAMAZepine (XR) 200 MG TABSR PO ×2 (08:37→20:34)
[2018-05-22] MEDS: ASPIRIN (EC) 81 MG TAB PO (08:37)
[2018-05-22] MEDS: COLLAGENASE 5 GM (UD JAR) TOP (08:38)
[2018-05-22] MEDS: L ACIDOPHIL/B LACTIS/B LONGUM CAPSULE PO ×2 (08:49→20:34)
[2018-05-22] MEDS: BUDESONIDE (NEB) 0.25 MG/2 ML AMP HHN ×2 (08:58→19:47)
[2018-05-22] MEDS ORDERED: THIAMINE 100 MG TAB PO (09:00)
[2018-05-22] MEDS: morphine 2 MG INJ IV ×3 (09:10→21:33)
[2018-05-22] MEDS: SOD CHLORIDE 0.9% 1,000 ML IV ×2 (12:00→20:42)
[2018-05-22] MEDS: CEFTRIAXONE 1 GM/50 ML (PMX) 50 ML IVPB (13:46)
[2018-05-22] MEDS: INSULIN GLARGINE [LANTus] (100 UNITS/ML) SYG SC (20:36)
[2018-05-23] MEDS ORDERED: HEPARIN 5,000 UNIT/0.5 ML VIAL ×4 (00:33→21:02)
[2018-05-23] MEDS: CLINDAMYCIN 150 MG CAP PO ×5 (00:45→23:47)
[2018-05-23] MEDS: LORAZEPAM 2 MG INJ IV (00:46)
[2018-05-23] MEDS: HEPARIN SODIUM 5,000 UNIT/ML VIAL SC ×3 (05:19→21:04)
[2018-05-23] MEDS: morphine 2 MG INJ IV ×6 (05:27→21:04)
[2018-05-23] MEDS: hydrALAzine 20 MG INJ IV (07:38)
[2018-05-23 07:57] LABS: ANION GAP 15 (5-13); BLOOD UREA NITROGEN 46 mg/dl (7-20); CALCIUM 9.7 mg/dl (8.4-10.2); CARBON DIOXIDE 20 mmol/L (21-31); CHLORIDE 102 mmol/L (97-110); Estimated GFR 24 mL/min (>60); GLUCOSE 102 mg/dl (70-220); POTASSIUM 4.8 mmol/L (3.5-5.1); SODIUM 137 mmol/L (135-144)
[2018-05-23] MEDS: INSULIN ASPART [NOVOLOG] 3 ML PEN SC ×7 (08:00→20:58)
[2018-05-23] MEDS: PHENYTOIN 100 MG CAP PO ×2 (08:27→20:57)
[2018-05-23] MEDS: L ACIDOPHIL/B LACTIS/B LONGUM CAPSULE PO ×2 (08:27→20:56)
[2018-05-23] MEDS: FOLIC ACID 1 MG TAB PO (08:27)
[2018-05-23] MEDS: MULTIVITAMINS THERAPEUTIC TAB PO (08:28)
[2018-05-23] MEDS: FLUOXETINE 20 MG CAP PO (08:28)
[2018-05-23] MEDS: FLUOXETINE 10 MG CAP PO (08:28)
[2018-05-23] MEDS: ASPIRIN (EC) 81 MG TAB PO (08:28)
[2018-05-23] MEDS: GABAPENTIN 300 MG CAP PO ×2 (08:28→20:56)
[2018-05-23] MEDS: GUAIFENESIN LA 600 MG TABSR PO ×2 (08:28→20:57)
[2018-05-23] MEDS: carBAMAZepine (XR) 200 MG TABSR PO ×2 (08:29→20:57)
[2018-05-23] MEDS: THIAMINE 100 MG TAB PO (08:29)
[2018-05-23] MEDS: DOCUSATE SODIUM 100 MG CAP PO (08:29)
[2018-05-23] MEDS: AMLODIPINE 10 MG TAB PO (08:30)
[2018-05-23] MEDS: COLLAGENASE 5 GM (UD JAR) TOP (08:36)
[2018-05-23] MEDS: LACTOBACILLUS RHAMNOSUS CAP PO ×2 (09:05→20:56)
[2018-05-23] MEDS: BUDESONIDE (NEB) 0.25 MG/2 ML AMP HHN ×2 (09:08→20:00)
[2018-05-23] MEDS: CEFTRIAXONE 1 GM/50 ML (PMX) 50 ML IVPB (13:00)
[2018-05-23] MEDS: QUETIAPINE 100 MG TAB PO (20:57)
[2018-05-23] MEDS: INSULIN GLARGINE [LANTus] (100 UNITS/ML) SYG SC (20:58)
[2018-05-24] MEDS ORDERED: HEPARIN 5,000 UNIT/0.5 ML VIAL ×3 (05:01→22:18)
[2018-05-24] MEDS: CLINDAMYCIN 150 MG CAP PO (05:04)
[2018-05-24] MEDS: HEPARIN SODIUM 5,000 UNIT/ML VIAL SC ×3 (05:05→22:25)
[2018-05-24] MEDS: morphine 2 MG INJ IV ×4 (05:15→20:12)
[2018-05-24] MEDS: INSULIN ASPART [NOVOLOG] 3 ML PEN SC ×6 (08:00→20:10)
[2018-05-24 08:23] LABS: ADD MAN DIFF? NO
[2018-05-24 08:27] LABS: BASOPHIL # 0.1 10^3/ul (0.0-0.1); BASOPHILS % 1.1 % (0.0-2.0); EOSINOPHILS # 0.3 10^3/ul (0.0-0.5); EOSINOPHILS % 5.4 % (0.0-7.0); HEMOGLOBIN 8.8 g/dl (14.0-18.0); LYMPHOCYTES # 0.6 10^3/ul (0.8-2.9); LYMPHOCYTES % 10.2 % (15.0-51.0); MEAN CORPUSCULAR HEMOGLOBIN 27.7 pg (29.0-33.0); MEAN CORPUSCULAR HGB CONC 32.6 g/dl (32.0-37.0); MEAN CORPUSCULAR VOLUME 84.9 fl (82.0-101.0); MONOCYTE # 0.6 10^3/ul (0.3-0.9); MONOCYTES % 9.5 % (0.0-11.0); NEUTROPHIL # 4.5 10^3/ul (1.6-7.5); PLATELET COUNT 732 10^3/UL (140-415); RED BLOOD COUNT 3.18 10^6/ul (4.70-6.10); RED CELL DISTRIBUTION WIDTH 14.8 % (11.5-14.5)
[2018-05-24 08:27] LABS: WHITE BLOOD COUNT 6.1 10^3/ul (4.8-10.8)
[2018-05-24] MEDS: BUDESONIDE (NEB) 0.25 MG/2 ML AMP HHN ×2 (08:30→19:43)
[2018-05-24 08:39] LABS: ALANINE AMINOTRANSFERASE 17 IU/L (13-69); ALBUMIN 3.5 g/dl (3.3-4.9); ALBUMIN/GLOBULIN RATIO 0.94; ALKALINE PHOSPHATASE 214 IU/L (42-121); ANION GAP 15 (5-13); ASPARTATE AMINO TRANSFERASE 25 IU/L (15-46); BLOOD UREA NITROGEN 44 mg/dl (7-20); CALCIUM 9.8 mg/dl (8.4-10.2); CARBON DIOXIDE 22 mmol/L (21-31); CHLORIDE 101 mmol/L (97-110); CREATININE 2.49 mg/dl (0.61-1.24); Estimated GFR 27 mL/min (>60); POTASSIUM 4.2 mmol/L (3.5-5.1); SODIUM 138 mmol/L (135-144); TOTAL PROTEIN 7.2 g/dl (6.1-8.1)
[2018-05-24 08:44] LABS: GLUCOSE 44 mg/dl (70-220)
[2018-05-24] MEDS: FLUOXETINE 10 MG CAP PO (08:58)
[2018-05-24] MEDS: carBAMAZepine (XR) 200 MG TABSR PO ×2 (08:59→20:07)
[2018-05-24] MEDS: GUAIFENESIN LA 600 MG TABSR PO ×2 (08:59→20:07)
[2018-05-24] MEDS: FLUOXETINE 20 MG CAP PO (08:59)
[2018-05-24] MEDS: MULTIVITAMINS THERAPEUTIC TAB PO (09:00)
[2018-05-24] MEDS: GABAPENTIN 300 MG CAP PO ×2 (09:00→20:07)
[2018-05-24] MEDS: PHENYTOIN 100 MG CAP PO ×2 (09:01→20:07)
[2018-05-24] MEDS: LACTOBACILLUS RHAMNOSUS CAP PO ×2 (09:01→20:07)
[2018-05-24] MEDS: THIAMINE 100 MG TAB PO (09:01)
[2018-05-24] MEDS: DOCUSATE SODIUM 100 MG CAP PO (09:02)
[2018-05-24] MEDS: AMLODIPINE 10 MG TAB PO (09:02)
[2018-05-24] MEDS: L ACIDOPHIL/B LACTIS/B LONGUM CAPSULE PO (09:03)
[2018-05-24] MEDS: FOLIC ACID 1 MG TAB PO (09:03)
[2018-05-24] MEDS: ASPIRIN (EC) 81 MG TAB PO (09:03)
[2018-05-24] MEDS: COLLAGENASE 5 GM (UD JAR) TOP (11:39)
[2018-05-24] MEDS: CEFTRIAXONE 1 GM/50 ML (PMX) 50 ML IVPB (13:06)
[2018-05-24] MEDS: CLINDAMYCIN 900 MG/D5W (PMX) 50 ML IVPB ×2 (14:19→22:23)
[2018-05-24] MEDS: INSULIN GLARGINE [LANTus] (100 UNITS/ML) SYG SC (20:11)
[2018-05-24] MEDS: QUETIAPINE 100 MG TAB PO (21:00)
[2018-05-24] MEDS: LORAZEPAM 2 MG INJ IV (22:28)
[2018-05-25] MEDS: morphine 2 MG INJ IV ×5 (02:22→22:30)
[2018-05-25] MEDS ORDERED: HEPARIN 5,000 UNIT/0.5 ML VIAL ×3 (05:17→22:15)
[2018-05-25] MEDS: CLINDAMYCIN 900 MG/D5W (PMX) 50 ML IVPB ×3 (05:26→22:19)
[2018-05-25] MEDS: HEPARIN SODIUM 5,000 UNIT/ML VIAL SC ×3 (05:27→22:21)
[2018-05-25] MEDS: hydrALAzine 20 MG INJ IV (07:44)
[2018-05-25] MEDS: INSULIN ASPART [NOVOLOG] 3 ML PEN SC ×4 (08:00→21:00)
[2018-05-25] MEDS: GUAIFENESIN LA 600 MG TABSR PO ×2 (08:15→21:18)
[2018-05-25] MEDS: LACTOBACILLUS RHAMNOSUS CAP PO ×2 (08:15→21:17)
[2018-05-25] MEDS: ASPIRIN (EC) 81 MG TAB PO (08:16)
[2018-05-25] MEDS: carBAMAZepine (XR) 200 MG TABSR PO ×2 (08:16→21:17)
[2018-05-25] MEDS: DOCUSATE SODIUM 100 MG CAP PO (08:16)
[2018-05-25] MEDS: FOLIC ACID 1 MG TAB PO (08:16)
[2018-05-25] MEDS: MULTIVITAMINS THERAPEUTIC TAB PO (08:17)
[2018-05-25] MEDS: GABAPENTIN 300 MG CAP PO ×2 (08:17→21:18)
[2018-05-25] MEDS: AMLODIPINE 10 MG TAB PO (08:17)
[2018-05-25] MEDS: THIAMINE 100 MG TAB PO (08:17)
[2018-05-25] MEDS: FLUOXETINE 10 MG CAP PO (08:18)
[2018-05-25] MEDS: FLUOXETINE 20 MG CAP PO (08:18)
[2018-05-25] MEDS: COLLAGENASE 5 GM (UD JAR) TOP (08:20)
[2018-05-25] MEDS: BUDESONIDE (NEB) 0.25 MG/2 ML AMP HHN ×2 (09:00→20:00)
[2018-05-25] MEDS: PHENYTOIN 100 MG CAP PO ×2 (09:00→21:17)
[2018-05-25] MEDS: NIFEdipine (XL) 90 MG TAB PO (11:12)
[2018-05-25] MEDS: PHENYTOIN (100 MG/4 ML) CUP PO (11:13)
[2018-05-25] MEDS: ONDANSETRON 4 MG INJ IV (11:39)
[2018-05-25] MEDS: CEFTRIAXONE 1 GM/50 ML (PMX) 50 ML IVPB (13:10)
[2018-05-25] MEDS: QUETIAPINE 100 MG TAB PO (21:00)
[2018-05-25] MEDS: INSULIN GLARGINE [LANTus] (100 UNITS/ML) SYG SC (21:20)
[2018-05-26] MEDS: morphine 2 MG INJ IV (05:08)
[2018-05-26] MEDS ORDERED: HEPARIN 5,000 UNIT/0.5 ML VIAL ×2 (05:20→13:24)
[2018-05-26] MEDS: HEPARIN SODIUM 5,000 UNIT/ML VIAL SC ×2 (05:22→13:37)
[2018-05-26] MEDS: CLINDAMYCIN 900 MG/D5W (PMX) 50 ML IVPB ×2 (05:22→13:36)
[2018-05-26] MEDS: INSULIN ASPART [NOVOLOG] 3 ML PEN SC ×2 (07:58→12:09)
[2018-05-26] MEDS: GABAPENTIN 300 MG CAP PO (08:04)
[2018-05-26] MEDS: FLUOXETINE 20 MG CAP PO (08:04)
[2018-05-26] MEDS: FOLIC ACID 1 MG TAB PO (08:04)
[2018-05-26] MEDS: THIAMINE 100 MG TAB PO (08:04)
[2018-05-26] MEDS: MULTIVITAMINS THERAPEUTIC TAB PO (08:04)
[2018-05-26] MEDS: LACTOBACILLUS RHAMNOSUS CAP PO (08:04)
[2018-05-26] MEDS: FLUOXETINE 10 MG CAP PO (08:04)
[2018-05-26] MEDS: ASPIRIN (EC) 81 MG TAB PO (08:05)
[2018-05-26] MEDS: DOCUSATE SODIUM 100 MG CAP PO (08:05)
[2018-05-26] MEDS: PHENYTOIN 100 MG CAP PO (08:05)
[2018-05-26] MEDS: carBAMAZepine (XR) 200 MG TABSR PO (08:05)
[2018-05-26] MEDS: NIFEdipine (XL) 90 MG TAB PO (08:06)
[2018-05-26] MEDS: GUAIFENESIN LA 600 MG TABSR PO (08:09)
[2018-05-26] MEDS: COLLAGENASE 5 GM (UD JAR) TOP (08:10)
[2018-05-26] MEDS: BUDESONIDE (NEB) 0.25 MG/2 ML AMP HHN (09:00)
[2018-05-26] MEDS: OXYCODONE/ACETAMINOPHEN (10/325) TAB PO (10:11)
[2018-05-26] MEDS: CEFTRIAXONE 1 GM/50 ML (PMX) 50 ML IVPB (12:11)
== END 2018-05-26 15:35 | disposition home health service (06) | DRG 871 ==
LOC: 5EC 17:04 → E/R 12:06 → 5EC 05-03 19:51 → TEL 14:33
PROC: 0TJB8ZZ Inspection of Bladder, Via Natural or Artificial Opening Endoscopic (ICD-10-PCS; principal; 2018-05-07 18:00)
PROC: 02HV33Z Insertion of Infusion Device into Superior Vena Cava, Percutaneous Approach (ICD-10-PCS; 2018-05-07 18:43)
PROC: B548ZZA Ultrasonography of Superior Vena Cava, Guidance (ICD-10-PCS; 2018-05-07 18:43)
DX: A41.9 Sepsis, unspecified organism (principal); R65.21 Severe sepsis with septic shock; N17.0 Acute kidney failure with tubular necrosis; J69.0 Pneumonitis due to inhalation of food and vomit; M86.8X7 Other osteomyelitis, ankle and foot; F10.239 Alcohol dependence with withdrawal, unspecified; E87.2 Acidosis; E11.42 Type 2 diabetes mellitus with diabetic polyneuropathy; E11.621 Type 2 diabetes mellitus with foot ulcer; E11.69 Type 2 diabetes mellitus with other specified complication; L97.529 Non-pressure chronic ulcer of other part of left foot with unspecified severity; E11.21 Type 2 diabetes mellitus with diabetic nephropathy; I10 Essential (primary) hypertension; F32.9 Major depressive disorder, single episode, unspecified; G40.909 Epilepsy, unspecified, not intractable, without status epilepticus; E78.5 Hyperlipidemia, unspecified; I73.9 Peripheral vascular disease, unspecified; Y90.4 Blood alcohol level of 80-99 mg/100 ml; Z79.4 Long term (current) use of insulin; Z89.431 Acquired absence of right foot; Z89.422 Acquired absence of other left toe(s); Z87.891 Personal history of nicotine dependence
CPT/HCPCS: 36415; 36569; 71045; 73630; 73630-LT; 73718; 74018; 74230; 76775; 76937; 80048; 80053; 80061; 80156; 80185; 80202; 80307; 81001; 81003; 82306; 82550; 82565; 82570; 82652; 82803; 82947; 82962; 83036; 83605; 83735; 84100; 84300; 84520; 84560; 85025; 85610; 85651; 85730; 86140; 87040; 89190; 90686; 92526; 92610; 92611; 93005; 94640; 94664; 94667; 94668; 96361; 96365; 96375; 97110; 97116; 97163; 97530; 99291-25

== ENCOUNTER 2018-07-30 11:02 | Emergency (ER) | payer OTHER ==
[2018-07-30] MEDS: OXYCODONE/ACETAMINOPHEN (5/325) TAB PO ×2 (12:11→14:59)
[2018-07-30 12:15] LABS: ADD MAN DIFF? NO
[2018-07-30 12:19] LABS: BASOPHIL # 0.1 10^3/ul (0.0-0.1); BASOPHILS % 0.6 % (0.0-2.0); EOSINOPHILS # 0.2 10^3/ul (0.0-0.5); HEMOGLOBIN 7.8 g/dl (14.0-18.0); LYMPHOCYTES # 0.9 10^3/ul (0.8-2.9); LYMPHOCYTES % 8.3 % (15.0-51.0); MEAN CORPUSCULAR HGB CONC 32.5 g/dl (32.0-37.0); MEAN PLATELET VOLUME 9.7 fl (7.4-10.4); MONOCYTE # 0.6 10^3/ul (0.3-0.9); MONOCYTES % 5.8 % (0.0-11.0); NEUTROPHIL # 8.8 10^3/ul (1.6-7.5); NEUTROPHILS % 82.6 % (39.0-77.0); PLATELET COUNT 519 10^3/UL (140-415); RED BLOOD COUNT 2.79 10^6/ul (4.70-6.10); RED CELL DISTRIBUTION WIDTH 14.4 % (11.5-14.5)
[2018-07-30 12:19] LABS: WHITE BLOOD COUNT 10.7 10^3/ul (4.8-10.8)
[2018-07-30 12:54] LABS: ALANINE AMINOTRANSFERASE 44 IU/L (13-69); ALBUMIN 4.1 g/dl (3.3-4.9); ALBUMIN/GLOBULIN RATIO 1.28; ALKALINE PHOSPHATASE 244 IU/L (42-121); ANION GAP 12 (5-13); ASPARTATE AMINO TRANSFERASE 61 IU/L (15-46); BLOOD UREA NITROGEN 29 mg/dl (7-20); CALCIUM 9.5 mg/dl (8.4-10.2); CARBON DIOXIDE 27 mmol/L (21-31); CHLORIDE 102 mmol/L (97-110); CREATININE 1.66 mg/dl (0.61-1.24); Estimated GFR 44 mL/min (>60); GLUCOSE 254 mg/dl (70-220); LIPASE 34 U/L (23-300); POTASSIUM 5.6 mmol/L (3.5-5.1); SODIUM 141 mmol/L (135-144); TOTAL PROTEIN 7.3 g/dl (6.1-8.1)
[2018-07-30] MEDS: ALBUTEROL 0.083% (NEB) 2.5 MG/3 ML AMP HHN (13:21)
[2018-07-30 14:36] LABS: ANION GAP 10 (5-13); BLOOD UREA NITROGEN 29 mg/dl (7-20); CALCIUM 9.3 mg/dl (8.4-10.2); CARBON DIOXIDE 23 mmol/L (21-31); CHLORIDE 104 mmol/L (97-110); CREATININE 1.56 mg/dl (0.61-1.24); Estimated GFR 47 mL/min (>60); GLUCOSE 198 mg/dl (70-220); POTASSIUM 4.4 mmol/L (3.5-5.1); SODIUM 137 mmol/L (135-144)
== END 2018-07-30 15:35 | disposition home or self-care (01) ==
LOC: E/R 11:02
DX: M86.271 Subacute osteomyelitis, right ankle and foot (principal); L97.511 Non-pressure chronic ulcer of other part of right foot limited to breakdown of skin; D64.9 Anemia, unspecified; I12.9 Hypertensive chronic kidney disease with stage 1 through stage 4 chronic kidney disease, or unspecified chronic kidney disease; N18.3 Chronic kidney disease, stage 3 (moderate); E11.22 Type 2 diabetes mellitus with diabetic chronic kidney disease; R05 Cough; Z79.4 Long term (current) use of insulin; Z79.82 Long term (current) use of aspirin
CPT/HCPCS: 36415; 80048; 80053; 82962; 83690; 85025; 87040; 87070; 93971; 94664; 99284-25

== ENCOUNTER 2018-10-18 12:57 | Inpatient (IN) | payer OTHER ==
[2018-10-18 15:52] LABS: ADD MAN DIFF? NO
[2018-10-18 15:56] LABS: WHITE BLOOD COUNT 7.2 10^3/ul (4.8-10.8)
[2018-10-18 15:56] LABS: BASOPHILS % 0.4 % (0.0-2.0); EOSINOPHILS # 0.3 10^3/ul (0.0-0.5); EOSINOPHILS % 3.9 % (0.0-7.0); HEMOGLOBIN 9.7 g/dl (14.0-18.0); LYMPHOCYTES # 0.9 10^3/ul (0.8-2.9); MEAN CORPUSCULAR HGB CONC 31.3 g/dl (32.0-37.0); MEAN CORPUSCULAR VOLUME 89.3 fl (82.0-101.0); MEAN PLATELET VOLUME 9.7 fl (7.4-10.4); MONOCYTE # 0.5 10^3/ul (0.3-0.9); MONOCYTES % 6.6 % (0.0-11.0); NEUTROPHIL # 5.6 10^3/ul (1.6-7.5); PLATELET COUNT 437 10^3/UL (140-415); RED BLOOD COUNT 3.47 10^6/ul (4.70-6.10); RED CELL DISTRIBUTION WIDTH 13.2 % (11.5-14.5)
[2018-10-18 16:18] LABS: INR 0.91; PROTIME 12.4 Sec (11.9-14.9)
[2018-10-18 16:19] LABS: ANION GAP 17 (5-13); BLOOD UREA NITROGEN 36 mg/dl (7-20); CALCIUM 9.9 mg/dl (8.4-10.2); CARBON DIOXIDE 21 mmol/L (21-31); CHLORIDE 101 mmol/L (97-110); CREATININE 2.11 mg/dl (0.61-1.24); Estimated GFR 33 mL/min (>60); GLUCOSE 209 mg/dl (70-220); PARTIAL THROMBOPLASTIN TIME 32.3 Sec (23.0-35.0); SODIUM 139 mmol/L (135-144)
[2018-10-18 16:24] LABS: POTASSIUM 6.3 mmol/L (3.5-5.1)
[2018-10-18] MEDS: SOD CHLORIDE 0.9% 500 ML IV (16:30)
[2018-10-18] MEDS: ALBUTEROL 0.5% (NEB) 2.5 MG/0.5 ML AMP INH (16:42)
[2018-10-18] MEDS: CEFEPIME 1GM/50 ML (PMX) 50 ML IVPB (16:49)
[2018-10-18] MEDS: CALCIUM GLUCONATE 10% 1 GM in DEXTROSE 5% 100 ML IVPB (17:12)
[2018-10-18] MEDS ORDERED: NACL 0.9% 3 ML SYG IV (17:30)
[2018-10-18] MEDS ORDERED: ONDANSETRON 4 MG INJ IV (17:30)
[2018-10-18] MEDS ORDERED: DEXTROSE 50% 50 ML SYRINGE IV ×2 (18:00)
[2018-10-18] MEDS ORDERED: GLUCOSE GEL 15 GRAM TUBE BUCCAL (18:00)
[2018-10-18] MEDS ORDERED: GLUCAGON 1 MG INJ IM (18:00)
[2018-10-18] MEDS ORDERED: VANCOMYCIN IV PER PHARMACY XX (18:00)
[2018-10-18] MEDS ORDERED: GLUCOSE GEL 15 GRAM TUBE PO ×2 (18:00)
[2018-10-18 18:28] LABS: ANION GAP 12 (5-13); BLOOD UREA NITROGEN 32 mg/dl (7-20); CARBON DIOXIDE 20 mmol/L (21-31); CHLORIDE 105 mmol/L (97-110); CREATININE 1.94 mg/dl (0.61-1.24); Estimated GFR 36 mL/min (>60); GLUCOSE 176 mg/dl (70-220); POTASSIUM 5.3 mmol/L (3.5-5.1); SODIUM 137 mmol/L (135-144)
[2018-10-18] MEDS: VANCOMYCIN 1 GM (PMX) 250 ML IVPB (18:31)
[2018-10-18 18:41] LABS: PHOSPHORUS 4.2 mg/dl (2.5-4.9)
[2018-10-18] MEDS: HYDROCODONE/APAP (10/325) TAB PO (19:24)
[2018-10-18] MEDS: ATORVASTATIN 40 MG TAB PO (22:26)
[2018-10-18] MEDS: GABAPENTIN 100 MG CAP PO (22:26)
[2018-10-18] MEDS: TAMSULOSIN (SR) 0.4 MG CAP PO (22:27)
[2018-10-18] MEDS: PHENYTOIN 100 MG CAP PO (22:28)
[2018-10-18] MEDS: INSULIN ASPART [NOVOLOG] 3 ML PEN SC (22:29)
[2018-10-18] MEDS: HEPARIN 5,000 UNIT/1 ML VIAL SC (22:32)
[2018-10-18] MEDS: SOD CHLORIDE 0.9% 1,000 ML IV (23:25)
[2018-10-18] MEDS: carBAMAZepine (XR) 200 MG TABSR PO (23:34)
[2018-10-18] MEDS: morphine 4 MG/ML VIAL IV (23:37)
[2018-10-18] MEDS: INSULIN GLARGINE [LANTus] (100 UNITS/ML) SYG SC (23:41)
[2018-10-19] MEDS: CEFEPIME 2GM/50 ML (PMX) 50 ML IVPB ×3 (01:46→21:17)
[2018-10-19] MEDS: ACCU-CHEK XX (01:49)
[2018-10-19] MEDS: HYDROCODONE/APAP (10/325) TAB PO ×2 (04:45→09:43)
[2018-10-19] MEDS: morphine 4 MG/ML VIAL IV ×3 (05:24→21:10)
[2018-10-19] MEDS: HEPARIN 5,000 UNIT/1 ML VIAL SC ×3 (05:28→21:28)
[2018-10-19 06:04] LABS: ADD MAN DIFF? NO
[2018-10-19 06:10] LABS: WHITE BLOOD COUNT 4.8 10^3/ul (4.8-10.8)
[2018-10-19 06:10] LABS: BASOPHILS % 0.6 % (0.0-2.0); EOSINOPHILS # 0.2 10^3/ul (0.0-0.5); EOSINOPHILS % 4.2 % (0.0-7.0); HEMATOCRIT 27.7 % (42.0-52.0); HEMOGLOBIN 8.6 g/dl (14.0-18.0); LYMPHOCYTES # 0.7 10^3/ul (0.8-2.9); MEAN CORPUSCULAR HEMOGLOBIN 27.6 pg (29.0-33.0); MEAN CORPUSCULAR VOLUME 88.8 fl (82.0-101.0); MONOCYTE # 0.5 10^3/ul (0.3-0.9); MONOCYTES % 9.4 % (0.0-11.0); NEUTROPHIL # 3.4 10^3/ul (1.6-7.5); NEUTROPHILS % 71.4 % (39.0-77.0); PLATELET COUNT 412 10^3/UL (140-415); RED BLOOD COUNT 3.12 10^6/ul (4.70-6.10); RED CELL DISTRIBUTION WIDTH 13.2 % (11.5-14.5)
[2018-10-19] MEDS: SOD CHLORIDE 0.9% 1,000 ML IV ×2 (06:37→09:42)
[2018-10-19 06:44] LABS: HEMOGLOBIN A1C 7.5 % (0-5.9)
[2018-10-19 07:06] LABS: ALANINE AMINOTRANSFERASE 41 IU/L (13-69); ALBUMIN 4.3 g/dl (3.3-4.9); ALBUMIN/GLOBULIN RATIO 1.26; ALKALINE PHOSPHATASE 140 IU/L (42-121); ANION GAP 12 (5-13); ASPARTATE AMINO TRANSFERASE 29 IU/L (15-46); BILIRUBIN,INDIRECT 0.1 mg/dl (0-1.1); BILIRUBIN,TOTAL 0.1 mg/dl (0.2-1.3); BLOOD UREA NITROGEN 26 mg/dl (7-20); CALCIUM 9.5 mg/dl (8.4-10.2); CARBON DIOXIDE 24 mmol/L (21-31); CHLORIDE 103 mmol/L (97-110); CHOL/HDL RATIO 2.6 RATIO; CHOLESTEROL 176 mg/dl (100-200); CREATININE 1.53 mg/dl (0.61-1.24); Estimated GFR 48 mL/min (>60); GLUCOSE 112 mg/dl (70-220); HDL CHOLESTEROL 66 mg/dl (28-71); LDL CHOLESTEROL,CALCULATED 91 mg/dl; MAGNESIUM 1.7 mg/dl (1.7-2.5); PHOSPHORUS 4.5 mg/dl (2.5-4.9); SODIUM 139 mmol/L (135-144); TOTAL PROTEIN 7.7 g/dl (6.1-8.1); TRIGLYCERIDES 95 mg/dl (0-149)
[2018-10-19] MEDS: INSULIN ASPART [NOVOLOG] 3 ML PEN SC ×4 (07:37→21:00)
[2018-10-19] MEDS: NA POLYST SULFON 15 GM/60 ML BTL PO ×2 (08:28→09:44)
[2018-10-19] MEDS: ASPIRIN (EC) 81 MG TAB PO (09:40)
[2018-10-19] MEDS: GABAPENTIN 100 MG CAP PO ×2 (09:40→21:13)
[2018-10-19] MEDS: FLUOXETINE 20 MG CAP PO (09:41)
[2018-10-19] MEDS: PHENYTOIN 100 MG CAP PO ×2 (09:41→21:14)
[2018-10-19] MEDS: carBAMAZepine (XR) 200 MG TABSR PO ×2 (09:41→21:13)
[2018-10-19] MEDS: FOLIC ACID 1 MG TAB PO (09:41)
[2018-10-19] MEDS: NIFEdipine (XL) 90 MG TAB PO (09:43)
[2018-10-19] MEDS: VANCOMYCIN HCL 1.25 GM in SOD CHLORIDE 0.9% 250 ML IVPB (11:34)
[2018-10-19] MEDS: ATORVASTATIN 40 MG TAB PO (21:13)
[2018-10-19] MEDS: TAMSULOSIN (SR) 0.4 MG CAP PO (21:15)
[2018-10-19] MEDS: INSULIN GLARGINE [LANTus] (100 UNITS/ML) SYG SC (21:39)
[2018-10-19] MEDS: AL HYDROX/MG HYDROX/SIMETH 30 ML CUP PO (23:32)
[2018-10-19] MEDS: VANCOMYCIN 1 GM 250 ML IVPB (23:32)
[2018-10-20] MEDS: ACCU-CHEK XX (01:42)
[2018-10-20] MEDS: morphine 4 MG/ML VIAL IV ×4 (04:26→22:50)
[2018-10-20] MEDS: HEPARIN 5,000 UNIT/1 ML VIAL SC ×3 (06:00→21:20)
[2018-10-20 06:02] LABS: ADD MAN DIFF? NO
[2018-10-20 06:03] LABS: WHITE BLOOD COUNT 4.9 10^3/ul (4.8-10.8)
[2018-10-20 06:03] LABS: BASOPHILS % 0.8 % (0.0-2.0); EOSINOPHILS # 0.3 10^3/ul (0.0-0.5); EOSINOPHILS % 5.1 % (0.0-7.0); HEMATOCRIT 28.4 % (42.0-52.0); HEMOGLOBIN 9.1 g/dl (14.0-18.0); LYMPHOCYTES # 0.7 10^3/ul (0.8-2.9); LYMPHOCYTES % 13.2 % (15.0-51.0); MEAN CORPUSCULAR HEMOGLOBIN 28.2 pg (29.0-33.0); MEAN CORPUSCULAR VOLUME 87.9 fl (82.0-101.0); MONOCYTE # 0.4 10^3/ul (0.3-0.9); MONOCYTES % 8.9 % (0.0-11.0); NEUTROPHIL # 3.5 10^3/ul (1.6-7.5); NEUTROPHILS % 71.8 % (39.0-77.0); PLATELET COUNT 421 10^3/UL (140-415); RED BLOOD COUNT 3.23 10^6/ul (4.70-6.10); RED CELL DISTRIBUTION WIDTH 12.9 % (11.5-14.5)
[2018-10-20] MEDS: PANTOPRAZOLE (EC) 40 MG TAB PO (06:17)
[2018-10-20] MEDS: SOD CHLORIDE 0.9% 1,000 ML IV (06:22)
[2018-10-20 06:32] LABS: ALANINE AMINOTRANSFERASE 34 IU/L (13-69); ALBUMIN 4.5 g/dl (3.3-4.9); ALBUMIN/GLOBULIN RATIO 1.28; ALKALINE PHOSPHATASE 153 IU/L (42-121); ANION GAP 10 (5-13); ASPARTATE AMINO TRANSFERASE 25 IU/L (15-46); BILIRUBIN,INDIRECT 0.1 mg/dl (0-1.1); BILIRUBIN,TOTAL 0.1 mg/dl (0.2-1.3); BLOOD UREA NITROGEN 24 mg/dl (7-20); CALCIUM 9.7 mg/dl (8.4-10.2); CARBON DIOXIDE 23 mmol/L (21-31); CHLORIDE 105 mmol/L (97-110); CREATININE 1.38 mg/dl (0.61-1.24); Estimated GFR 54 mL/min (>60); GLUCOSE 90 mg/dl (70-220); POTASSIUM 5.3 mmol/L (3.5-5.1); SODIUM 138 mmol/L (135-144)
[2018-10-20 06:33] LABS: MAGNESIUM 1.7 mg/dl (1.7-2.5)
[2018-10-20 06:33] LABS: PHOSPHORUS 4.4 mg/dl (2.5-4.9)
[2018-10-20] MEDS: INSULIN ASPART [NOVOLOG] 3 ML PEN SC ×4 (08:00→21:00)
[2018-10-20] MEDS: PHENYTOIN 100 MG CAP PO ×2 (09:47→22:49)
[2018-10-20] MEDS: FOLIC ACID 1 MG TAB PO (09:48)
[2018-10-20] MEDS: NIFEdipine (XL) 90 MG TAB PO (09:48)
[2018-10-20] MEDS: FLUOXETINE 20 MG CAP PO (09:48)
[2018-10-20] MEDS: carBAMAZepine (XR) 200 MG TABSR PO ×2 (09:48→21:23)
[2018-10-20] MEDS: GABAPENTIN 100 MG CAP PO ×2 (09:48→21:22)
[2018-10-20] MEDS: ASPIRIN (EC) 81 MG TAB PO (09:48)
[2018-10-20] MEDS: CEFEPIME 2GM/50 ML (PMX) 50 ML IVPB ×2 (09:49→22:37)
[2018-10-20] MEDS: VANCOMYCIN 1 GM 250 ML IVPB ×2 (11:45→23:23)
[2018-10-20] MEDS: NA POLYST SULFON 15 GM/60 ML BTL PO (11:45)
[2018-10-20] MEDS: INSULIN GLARGINE [LANTus] (100 UNITS/ML) SYG SC (21:19)
[2018-10-20] MEDS: ATORVASTATIN 40 MG TAB PO (21:21)
[2018-10-20] MEDS: TAMSULOSIN (SR) 0.4 MG CAP PO (21:22)
[2018-10-20 22:53] LABS: VANCOMYCIN,TROUGH 20.2 ug/ml (10.0-20.0)
[2018-10-21] MEDS: ACCU-CHEK XX (02:00)
[2018-10-21] MEDS: HEPARIN 5,000 UNIT/1 ML VIAL SC ×3 (06:13→21:18)
[2018-10-21] MEDS: PANTOPRAZOLE (EC) 40 MG TAB PO (06:14)
[2018-10-21] MEDS: morphine 4 MG/ML VIAL IV ×4 (06:20→21:20)
[2018-10-21 06:31] LABS: ADD MAN DIFF? NO
[2018-10-21 06:32] LABS: BASOPHIL # 0.1 10^3/ul (0.0-0.1); EOSINOPHILS # 0.3 10^3/ul (0.0-0.5); EOSINOPHILS % 5.6 % (0.0-7.0); HEMATOCRIT 29.2 % (42.0-52.0); HEMOGLOBIN 9.2 g/dl (14.0-18.0); LYMPHOCYTES # 0.9 10^3/ul (0.8-2.9); LYMPHOCYTES % 18.1 % (15.0-51.0); MEAN CORPUSCULAR HEMOGLOBIN 27.7 pg (29.0-33.0); MEAN CORPUSCULAR HGB CONC 31.5 g/dl (32.0-37.0); MEAN PLATELET VOLUME 9.8 fl (7.4-10.4); MONOCYTE # 0.4 10^3/ul (0.3-0.9); MONOCYTES % 8.5 % (0.0-11.0); NEUTROPHIL # 3.2 10^3/ul (1.6-7.5); NEUTROPHILS % 66.4 % (39.0-77.0); PLATELET COUNT 432 10^3/UL (140-415); RED BLOOD COUNT 3.32 10^6/ul (4.70-6.10); RED CELL DISTRIBUTION WIDTH 12.8 % (11.5-14.5)
[2018-10-21 06:32] LABS: WHITE BLOOD COUNT 4.8 10^3/ul (4.8-10.8)
[2018-10-21] MEDS: INSULIN ASPART [NOVOLOG] 3 ML PEN SC ×4 (08:00→21:18)
[2018-10-21] MEDS: CEFEPIME 2GM/50 ML (PMX) 50 ML IVPB ×2 (08:22→21:16)
[2018-10-21] MEDS: ASPIRIN (EC) 81 MG TAB PO (08:22)
[2018-10-21] MEDS: FOLIC ACID 1 MG TAB PO (08:22)
[2018-10-21] MEDS: NIFEdipine (XL) 90 MG TAB PO (08:22)
[2018-10-21] MEDS: PHENYTOIN 100 MG CAP PO ×2 (08:23→23:14)
[2018-10-21] MEDS: carBAMAZepine (XR) 200 MG TABSR PO ×2 (08:23→20:02)
[2018-10-21] MEDS: GABAPENTIN 100 MG CAP PO ×2 (08:23→20:01)
[2018-10-21] MEDS: FLUOXETINE 20 MG CAP PO (10:20)
[2018-10-21 10:33] LABS: ANION GAP 9 (5-13); BLOOD UREA NITROGEN 27 mg/dl (7-20); CARBON DIOXIDE 26 mmol/L (21-31); CHLORIDE 105 mmol/L (97-110); CREATININE 1.29 mg/dl (0.61-1.24); Estimated GFR 58 mL/min (>60); GLUCOSE 78 mg/dl (70-220); POTASSIUM 5.8 mmol/L (3.5-5.1); SODIUM 140 mmol/L (135-144)
[2018-10-21] MEDS ORDERED: VANCOMYCIN 750 MG (PMX) 250 ML IVPB (11:00)
[2018-10-21] MEDS: VANCOMYCIN 750 MG (PMX) 250 ML IVPB ×2 (11:40→23:15)
[2018-10-21] MEDS ORDERED: NA POLYST SULFON 15 GM/60 ML BTL PO (12:30)
[2018-10-21] MEDS: NA POLYST SULFON 15 GM/60 ML BTL PO (14:28)
[2018-10-21] MEDS: INSULIN GLARGINE [LANTus] (100 UNITS/ML) SYG SC (20:00)
[2018-10-21] MEDS: TAMSULOSIN (SR) 0.4 MG CAP PO (20:01)
[2018-10-21] MEDS: ATORVASTATIN 40 MG TAB PO (20:01)
[2018-10-22] MEDS: ACCU-CHEK XX (02:09)
[2018-10-22] MEDS: morphine 4 MG/ML VIAL IV ×5 (02:26→22:39)
[2018-10-22] MEDS: INSULIN ASPART [NOVOLOG] 3 ML PEN SC ×2 (05:00→08:38)
[2018-10-22] MEDS: HEPARIN 5,000 UNIT/1 ML VIAL SC ×3 (05:08→22:12)
[2018-10-22] MEDS: PANTOPRAZOLE (EC) 40 MG TAB PO (05:10)
[2018-10-22 06:12] LABS: ADD MAN DIFF? NO
[2018-10-22 06:29] LABS: BASOPHILS % 0.9 % (0.0-2.0); EOSINOPHILS # 0.4 10^3/ul (0.0-0.5); EOSINOPHILS % 7.6 % (0.0-7.0); HEMATOCRIT 25.6 % (42.0-52.0); HEMOGLOBIN 8.1 g/dl (14.0-18.0); LYMPHOCYTES # 1.1 10^3/ul (0.8-2.9); LYMPHOCYTES % 24.4 % (15.0-51.0); MEAN CORPUSCULAR HEMOGLOBIN 27.9 pg (29.0-33.0); MEAN CORPUSCULAR HGB CONC 31.6 g/dl (32.0-37.0); MEAN CORPUSCULAR VOLUME 88.3 fl (82.0-101.0); MEAN PLATELET VOLUME 9.9 fl (7.4-10.4); MONOCYTE # 0.5 10^3/ul (0.3-0.9); MONOCYTES % 10.9 % (0.0-11.0); NEUTROPHIL # 2.6 10^3/ul (1.6-7.5); NEUTROPHILS % 55.8 % (39.0-77.0); PLATELET COUNT 395 10^3/UL (140-415); RED CELL DISTRIBUTION WIDTH 12.8 % (11.5-14.5)
[2018-10-22 06:29] LABS: WHITE BLOOD COUNT 4.6 10^3/ul (4.8-10.8)
[2018-10-22 06:45] LABS: ANION GAP 9 (5-13); BLOOD UREA NITROGEN 31 mg/dl (7-20); CALCIUM 9.3 mg/dl (8.4-10.2); CARBON DIOXIDE 25 mmol/L (21-31); CHLORIDE 105 mmol/L (97-110); CREATININE 1.34 mg/dl (0.61-1.24); Estimated GFR 56 mL/min (>60); GLUCOSE 75 mg/dl (70-220); POTASSIUM 4.8 mmol/L (3.5-5.1); SODIUM 139 mmol/L (135-144)
[2018-10-22 07:06] LABS: MAGNESIUM 1.7 mg/dl (1.7-2.5)
[2018-10-22 07:06] LABS: PHOSPHORUS 4.9 mg/dl (2.5-4.9)
[2018-10-22] MEDS: FOLIC ACID 1 MG TAB PO (08:26)
[2018-10-22] MEDS: GABAPENTIN 100 MG CAP PO ×2 (08:26→22:08)
[2018-10-22] MEDS: FLUOXETINE 20 MG CAP PO (08:26)
[2018-10-22] MEDS: carBAMAZepine (XR) 200 MG TABSR PO ×2 (08:27→21:00)
[2018-10-22] MEDS: PHENYTOIN 100 MG CAP PO ×2 (08:27→22:08)
[2018-10-22] MEDS: NIFEdipine (XL) 90 MG TAB PO (08:27)
[2018-10-22] MEDS: CEFEPIME 2GM/50 ML (PMX) 50 ML IVPB (08:33)
[2018-10-22] MEDS: ASPIRIN (EC) 81 MG TAB PO (08:39)
[2018-10-22] MEDS ORDERED: INSULIN ASPART [NOVOLOG] 3 ML PEN SC (11:30)
[2018-10-22] MEDS: Insulin NOVOLOG SS MODERATE Algorithm (SS with meals and bedtime) SC ×3 (12:00→21:00)
[2018-10-22] MEDS: VANCOMYCIN 750 MG (PMX) 250 ML IVPB (13:22)
[2018-10-22] MEDS: ERTAPENEM SODIUM 1 GM in SOD CHLORIDE 0.9% 100 ML IVPB (17:58)
[2018-10-22] MEDS: TAMSULOSIN (SR) 0.4 MG CAP PO (22:08)
[2018-10-22] MEDS: ATORVASTATIN 40 MG TAB PO (22:08)
[2018-10-22] MEDS: INSULIN GLARGINE [LANTus] (100 UNITS/ML) SYG SC (22:11)
[2018-10-22] MEDS: SODIUM HYPOCHLORITE (1/40) 1 APPLIC BTL IRR (22:17)
[2018-10-23] MEDS ORDERED: VANCOMYCIN 750 MG (PMX) 250 ML IVPB (01:00)
[2018-10-23] MEDS: ACCU-CHEK XX (02:00)
[2018-10-23] MEDS: morphine 4 MG/ML VIAL IV ×5 (02:49→22:05)
[2018-10-23 06:17] LABS: ADD MAN DIFF? NO
[2018-10-23 06:21] LABS: WHITE BLOOD COUNT 5.4 10^3/ul (4.8-10.8)
[2018-10-23 06:21] LABS: BASOPHIL # 0.1 10^3/ul (0.0-0.1); BASOPHILS % 0.9 % (0.0-2.0); EOSINOPHILS # 0.4 10^3/ul (0.0-0.5); EOSINOPHILS % 6.8 % (0.0-7.0); HEMATOCRIT 31.4 % (42.0-52.0); LYMPHOCYTES # 1.1 10^3/ul (0.8-2.9); LYMPHOCYTES % 20.1 % (15.0-51.0); MEAN CORPUSCULAR HEMOGLOBIN 27.9 pg (29.0-33.0); MEAN CORPUSCULAR HGB CONC 31.8 g/dl (32.0-37.0); MEAN CORPUSCULAR VOLUME 87.5 fl (82.0-101.0); MEAN PLATELET VOLUME 9.7 fl (7.4-10.4); MONOCYTE # 0.4 10^3/ul (0.3-0.9); MONOCYTES % 6.8 % (0.0-11.0); NEUTROPHIL # 3.5 10^3/ul (1.6-7.5); PLATELET COUNT 478 10^3/UL (140-415); RED BLOOD COUNT 3.59 10^6/ul (4.70-6.10)
[2018-10-23 06:43] LABS: ANION GAP 15 (5-13); BLOOD UREA NITROGEN 31 mg/dl (7-20); CALCIUM 10.3 mg/dl (8.4-10.2); CARBON DIOXIDE 27 mmol/L (21-31); CHLORIDE 99 mmol/L (97-110); CREATININE 1.33 mg/dl (0.61-1.24); Estimated GFR 56 mL/min (>60); GLUCOSE 128 mg/dl (70-220); POTASSIUM 5.4 mmol/L (3.5-5.1); SODIUM 141 mmol/L (135-144)
[2018-10-23] MEDS: PANTOPRAZOLE (EC) 40 MG TAB PO (06:53)
[2018-10-23] MEDS: HEPARIN 5,000 UNIT/1 ML VIAL SC ×3 (06:58→22:18)
[2018-10-23] MEDS: Insulin NOVOLOG SS MODERATE Algorithm (SS with meals and bedtime) SC ×4 (08:00→21:00)
[2018-10-23] MEDS: PHENYTOIN 100 MG CAP PO ×2 (09:32→22:08)
[2018-10-23] MEDS: SODIUM HYPOCHLORITE (1/40) 1 APPLIC BTL IRR (09:32)
[2018-10-23] MEDS: ASPIRIN (EC) 81 MG TAB PO (09:32)
[2018-10-23] MEDS: GABAPENTIN 100 MG CAP PO ×2 (09:32→22:09)
[2018-10-23] MEDS: FOLIC ACID 1 MG TAB PO (09:32)
[2018-10-23] MEDS: FLUOXETINE 20 MG CAP PO (09:33)
[2018-10-23] MEDS: carBAMAZepine (XR) 100 MG TABSR PO ×2 (09:33→22:08)
[2018-10-23] MEDS: NIFEdipine (XL) 90 MG TAB PO (09:33)
[2018-10-23] MEDS: ERTAPENEM SODIUM 1 GM in SOD CHLORIDE 0.9% 100 ML IVPB (17:13)
[2018-10-23] MEDS: TAMSULOSIN (SR) 0.4 MG CAP PO (22:08)
[2018-10-23] MEDS: ATORVASTATIN 40 MG TAB PO (22:08)
[2018-10-23] MEDS: INSULIN GLARGINE [LANTus] (100 UNITS/ML) SYG SC (22:19)
[2018-10-24] MEDS: ACCU-CHEK XX (02:00)
[2018-10-24] MEDS: INSULIN ASPART [NOVOLOG] 3 ML PEN SC ×5 (02:01→20:38)
[2018-10-24] MEDS: morphine 4 MG/ML VIAL IV ×4 (02:03→20:43)
[2018-10-24] MEDS: HEPARIN 5,000 UNIT/1 ML VIAL SC ×3 (05:09→20:39)
[2018-10-24] MEDS: PANTOPRAZOLE (EC) 40 MG TAB PO (05:09)
[2018-10-24 06:20] LABS: ANION GAP 13 (5-13); BLOOD UREA NITROGEN 31 mg/dl (7-20); CALCIUM 10.1 mg/dl (8.4-10.2); CARBON DIOXIDE 26 mmol/L (21-31); CHLORIDE 103 mmol/L (97-110); CREATININE 1.59 mg/dl (0.61-1.24); Estimated GFR 46 mL/min (>60); GLUCOSE 79 mg/dl (70-220); POTASSIUM 5.4 mmol/L (3.5-5.1); SODIUM 142 mmol/L (135-144)
[2018-10-24 06:36] LABS: MAGNESIUM 1.6 mg/dl (1.7-2.5)
[2018-10-24 06:36] LABS: PHOSPHORUS 5.3 mg/dl (2.5-4.9)
[2018-10-24] MEDS: SODIUM HYPOCHLORITE (1/40) 1 APPLIC BTL IRR (08:12)
[2018-10-24] MEDS ORDERED: morphine (1 MG/ML) 10ML SYRINGE IV ×2 (08:30)
[2018-10-24] MEDS ORDERED: ONDANSETRON 4 MG INJ IV (08:30)
[2018-10-24] MEDS ORDERED: LABETALOL HCL 20MG INJ IV (08:30)
[2018-10-24] MEDS ORDERED: ALBUTEROL 0.083% (NEB) 2.5 MG/3 ML AMP HHN (08:30)
[2018-10-24] MEDS ORDERED: FENTAnyl 50 MCG/ML VIAL IV (08:30)
[2018-10-24] MEDS ORDERED: OXYCODONE/ACETAMINOPHEN (5/325) TAB PO ×2 (08:30)
[2018-10-24] MEDS ORDERED: HYDROmorphONE 1 MG/5 ML IV SYRINGE IV ×2 (08:30)
[2018-10-24] MEDS ORDERED: DIPHENHYDRAMINE 50 MG INJ IV (08:30)
[2018-10-24] MEDS ORDERED: PROPOFOL 40 ML (08:37)
[2018-10-24] MEDS ORDERED: MIDAZOLAM 1 MG/ML 2 ML INJ (08:37)
[2018-10-24] MEDS ORDERED: LIDOCAINE 2% (SDV) 5 ML INJ (08:37)
[2018-10-24] MEDS ORDERED: FENTAnyl 50 MCG/ML VIAL (08:37)
[2018-10-24] MEDS: FOLIC ACID 1 MG TAB PO (09:00)
[2018-10-24] MEDS: carBAMAZepine (XR) 100 MG TABSR PO ×2 (09:00→20:45)
[2018-10-24] MEDS: FLUOXETINE 20 MG CAP PO (09:00)
[2018-10-24] MEDS: ASPIRIN (EC) 81 MG TAB PO (09:00)
[2018-10-24] MEDS: GABAPENTIN 100 MG CAP PO ×2 (09:00→20:44)
[2018-10-24] MEDS: PHENYTOIN 100 MG CAP PO ×2 (09:00→20:44)
[2018-10-24] MEDS: NIFEdipine (XL) 90 MG TAB PO (09:00)
[2018-10-24] MEDS ORDERED: PHENYLephrine (100 MCG/ML) 10ML SYG (10:02)
[2018-10-24] MEDS: BUPIVACAINE 0.25% (MPF) 30 ML INJ (10:04)
[2018-10-24] MEDS: LIDOCAINE 1% (MPF) 30 ML INJ (10:04)
[2018-10-24] MEDS: POLYMYXIN B 500000 UNIT INJ (10:04)
[2018-10-24] MEDS: BACITRACIN 50000 UNITS INJ (10:04)
[2018-10-24] MEDS: FENTAnyl 50 MCG/ML VIAL IV (11:36)
[2018-10-24] MEDS: SOD CHLORIDE 0.45% 1,000 ML IV (16:04)
[2018-10-24] MEDS: NA POLYST SULFON 15 GM/60 ML BTL PO (17:37)
[2018-10-24] MEDS: ERTAPENEM SODIUM 1 GM in SOD CHLORIDE 0.9% 100 ML IVPB (17:38)
[2018-10-24] MEDS: MAGNESIUM SULFATE 1 GM/D5W 100 ML IVPB (18:22)
[2018-10-24] MEDS ORDERED: HEPARIN 5,000 UNIT/1 ML VIAL (19:49)
[2018-10-24] MEDS: INSULIN GLARGINE [LANTus] (100 UNITS/ML) SYG SC (20:42)
[2018-10-24] MEDS: ATORVASTATIN 40 MG TAB PO (20:44)
[2018-10-24] MEDS: TAMSULOSIN (SR) 0.4 MG CAP PO (20:45)
[2018-10-25] MEDS: morphine 4 MG/ML VIAL IV ×4 (01:01→14:42)
[2018-10-25] MEDS: ACCU-CHEK XX (02:00)
[2018-10-25] MEDS: SOD CHLORIDE 0.45% 1,000 ML IV ×2 (05:02→17:15)
[2018-10-25] MEDS: PANTOPRAZOLE (EC) 40 MG TAB PO (05:04)
[2018-10-25] MEDS: INSULIN ASPART [NOVOLOG] 3 ML PEN SC ×2 (07:30→12:10)
[2018-10-25] MEDS: SODIUM HYPOCHLORITE (1/40) 1 APPLIC BTL IRR (07:52)
[2018-10-25] MEDS: GABAPENTIN 100 MG CAP PO (08:06)
[2018-10-25] MEDS: FOLIC ACID 1 MG TAB PO (08:06)
[2018-10-25] MEDS: PHENYTOIN 100 MG CAP PO (08:08)
[2018-10-25] MEDS: ASPIRIN (EC) 81 MG TAB PO (08:08)
[2018-10-25] MEDS: FLUOXETINE 20 MG CAP PO (08:08)
[2018-10-25] MEDS: HEPARIN 5,000 UNIT/1 ML VIAL SC (08:09)
[2018-10-25] MEDS: NIFEdipine (XL) 90 MG TAB PO (08:11)
[2018-10-25] MEDS: carBAMAZepine (XR) 100 MG TABSR PO (08:18)
[2018-10-25 09:17] LABS: ANION GAP 12 (5-13); BLOOD UREA NITROGEN 27 mg/dl (7-20); CARBON DIOXIDE 24 mmol/L (21-31); CHLORIDE 103 mmol/L (97-110); CREATININE 1.36 mg/dl (0.61-1.24); Estimated GFR 55 mL/min (>60); GLUCOSE 125 mg/dl (70-220); SODIUM 139 mmol/L (135-144)
[2018-10-25] MEDS: LIDOCAINE 1% (MPF) 5 ML VIAL SC (12:30)
[2018-10-25] MEDS: ERTAPENEM SODIUM 1 GM in SOD CHLORIDE 0.9% 100 ML IVPB (17:20)
== END 2018-10-25 18:30 | disposition home health service (06) | DRG 623 ==
LOC: E/R 12:57 → PP2 10-20 19:55 → 6WM 17:16
PROC: 0JBQ0ZZ Excision of Right Foot Subcutaneous Tissue and Fascia, Open Approach (ICD-10-PCS; principal; 2018-10-24 09:00)
PROC: 0HRMXK3 Replacement of Right Foot Skin with Nonautologous Tissue Substitute, Full Thickness, External Approach (ICD-10-PCS; 2018-10-24 09:00)
PROC: 0YHM0YZ Insertion of Other Device into Right Foot, Open Approach (ICD-10-PCS; 2018-10-24 09:00)
PROC: 0JBQ0ZZ Excision of Right Foot Subcutaneous Tissue and Fascia, Open Approach (ICD-10-PCS; 2018-10-24 09:36)
DX: E11.621 Type 2 diabetes mellitus with foot ulcer (principal); M86.8X7 Other osteomyelitis, ankle and foot; E11.69 Type 2 diabetes mellitus with other specified complication; N17.0 Acute kidney failure with tubular necrosis; E11.22 Type 2 diabetes mellitus with diabetic chronic kidney disease; E11.42 Type 2 diabetes mellitus with diabetic polyneuropathy; E11.21 Type 2 diabetes mellitus with diabetic nephropathy; E87.5 Hyperkalemia; N18.3 Chronic kidney disease, stage 3 (moderate); L97.519 Non-pressure chronic ulcer of other part of right foot with unspecified severity; I12.9 Hypertensive chronic kidney disease with stage 1 through stage 4 chronic kidney disease, or unspecified chronic kidney disease; E78.5 Hyperlipidemia, unspecified; G40.909 Epilepsy, unspecified, not intractable, without status epilepticus; F32.9 Major depressive disorder, single episode, unspecified; F10.20 Alcohol dependence, uncomplicated; D63.1 Anemia in chronic kidney disease; B96.89 Other specified bacterial agents as the cause of diseases classified elsewhere; Z79.4 Long term (current) use of insulin; Z79.82 Long term (current) use of aspirin; Z89.421 Acquired absence of other right toe(s); Z87.891 Personal history of nicotine dependence
CPT/HCPCS: 36415; 36569; 71045; 73630; 73718; 76937; 80048; 80053; 80061; 80202; 82962; 83036; 83735; 84100; 84443; 85025; 85610; 85730; 87040; 87070; 87081; 93005; 93922; 94644; 96365; 96375; 99285-25

== ENCOUNTER 2018-10-28 11:10 | Emergency (ER) | payer OTHER ==
[2018-10-28 11:51] LABS: ADD MAN DIFF? NO
[2018-10-28 11:52] LABS: BASOPHILS % 0.6 % (0.0-2.0); EOSINOPHILS # 0.3 10^3/ul (0.0-0.5); EOSINOPHILS % 4.2 % (0.0-7.0); HEMATOCRIT 26.9 % (42.0-52.0); HEMOGLOBIN 8.5 g/dl (14.0-18.0); LYMPHOCYTES # 0.9 10^3/ul (0.8-2.9); LYMPHOCYTES % 13.1 % (15.0-51.0); MEAN CORPUSCULAR HEMOGLOBIN 28.1 pg (29.0-33.0); MEAN CORPUSCULAR HGB CONC 31.6 g/dl (32.0-37.0); MEAN CORPUSCULAR VOLUME 88.8 fl (82.0-101.0); MEAN PLATELET VOLUME 9.7 fl (7.4-10.4); MONOCYTE # 0.5 10^3/ul (0.3-0.9); MONOCYTES % 7.2 % (0.0-11.0); NEUTROPHIL # 5.4 10^3/ul (1.6-7.5); NEUTROPHILS % 74.5 % (39.0-77.0); PLATELET COUNT 361 10^3/UL (140-415); RED BLOOD COUNT 3.03 10^6/ul (4.70-6.10); RED CELL DISTRIBUTION WIDTH 13.2 % (11.5-14.5)
[2018-10-28 11:52] LABS: WHITE BLOOD COUNT 7.2 10^3/ul (4.8-10.8)
[2018-10-28] MEDS: morphine 4 MG/ML VIAL IV (12:49)
== END 2018-10-28 14:02 | disposition home or self-care (01) ==
LOC: E/R 11:10
DX: E13.621 Other specified diabetes mellitus with foot ulcer (principal); I10 Essential (primary) hypertension; L97.519 Non-pressure chronic ulcer of other part of right foot with unspecified severity; S98.911D Complete traumatic amputation of right foot, level unspecified, subsequent encounter; X58.XXXD Exposure to other specified factors, subsequent encounter; Y92.9 Unspecified place or not applicable; Z79.4 Long term (current) use of insulin; Z79.82 Long term (current) use of aspirin
CPT/HCPCS: 29515; 36415; 85025; 96374; 99284-25

== ENCOUNTER 2018-10-29 12:52 | Emergency (ER) | payer OTHER | END 2018-10-29 15:11 | disposition home or self-care (01) | LOC: E/R 12:52 | DX: G89.18 Other acute postprocedural pain (principal); I10 Essential (primary) hypertension; E11.9 Type 2 diabetes mellitus without complications; Z79.4 Long term (current) use of insulin; Z79.82 Long term (current) use of aspirin | CPT/HCPCS: 99282; Z7502 ==

== ENCOUNTER 2018-11-12 10:22 | Inpatient (IN) | payer OTHER ==
[2018-11-12 11:25] LABS: ADD MAN DIFF? NO
[2018-11-12 11:32] LABS: WHITE BLOOD COUNT 10.2 10^3/ul (4.8-10.8)
[2018-11-12 11:32] LABS: BASOPHIL # 0.1 10^3/ul (0.0-0.1); BASOPHILS % 0.5 % (0.0-2.0); EOSINOPHILS # 0.2 10^3/ul (0.0-0.5); EOSINOPHILS % 1.6 % (0.0-7.0); HEMATOCRIT 30.8 % (42.0-52.0); LYMPHOCYTES # 0.8 10^3/ul (0.8-2.9); LYMPHOCYTES % 8.2 % (15.0-51.0); MEAN CORPUSCULAR HEMOGLOBIN 28.1 pg (29.0-33.0); MEAN CORPUSCULAR HGB CONC 32.5 g/dl (32.0-37.0); MEAN CORPUSCULAR VOLUME 86.5 fl (82.0-101.0); MEAN PLATELET VOLUME 10.1 fl (7.4-10.4); MONOCYTE # 0.7 10^3/ul (0.3-0.9); MONOCYTES % 6.6 % (0.0-11.0); NEUTROPHIL # 8.3 10^3/ul (1.6-7.5); NEUTROPHILS % 81.7 % (39.0-77.0); PLATELET COUNT 340 10^3/UL (140-415); RED BLOOD COUNT 3.56 10^6/ul (4.70-6.10)
[2018-11-12] MEDS: ONDANSETRON 4 MG INJ IV (11:43)
[2018-11-12] MEDS: SOD CHLORIDE 0.9% 1,000 ML IV ×3 (11:43→20:00)
[2018-11-12] MEDS: HYDROmorphONE 1 MG/ML SYG IV (11:43)
[2018-11-12 11:47] LABS: ALANINE AMINOTRANSFERASE 42 IU/L (13-69); ALBUMIN 4.8 g/dl (3.3-4.9); ALBUMIN/GLOBULIN RATIO 1.29; ALKALINE PHOSPHATASE 148 IU/L (42-121); ANION GAP 10 (5-13); ASPARTATE AMINO TRANSFERASE 42 IU/L (15-46); BILIRUBIN,INDIRECT 0.2 mg/dl (0-1.1); BILIRUBIN,TOTAL 0.2 mg/dl (0.2-1.3); BLOOD UREA NITROGEN 44 mg/dl (7-20); CALCIUM 9.8 mg/dl (8.4-10.2); CARBON DIOXIDE 21 mmol/L (21-31); CHLORIDE 109 mmol/L (97-110); CREATININE 2.18 mg/dl (0.61-1.24); Estimated GFR 32 mL/min (>60); GLUCOSE 141 mg/dl (70-220); SODIUM 140 mmol/L (135-144); TOTAL PROTEIN 8.5 g/dl (6.1-8.1)
[2018-11-12 11:52] LABS: POTASSIUM 6.4 mmol/L (3.5-5.1)
[2018-11-12 11:56] LABS: ADD UMIC NO; UR ASCORBIC ACID 20 mg/dL (NEGATIVE); UR BILIRUBIN (Dip) NEGATIVE (NEGATIVE); UR BLOOD (Dip) NEGATIVE (NEGATIVE); UR CLARITY CLEAR (CLEAR); UR COLOR YELLOW (YELLOW); UR GLUCOSE (Dip) NEGATIVE (NEGATIVE); UR KETONES (Dip) NEGATIVE (NEGATIVE); UR LEUKOCYTE ESTERASE (Dip) NEGATIVE Leu/ul (NEGATIVE); UR NITRITE (Dip) NEGATIVE (NEGATIVE); UR SPECIFIC GRAVITY (Dip) 1.013 (1.003-1.030); UR TOTAL PROTEIN (Dip) NEGATIVE (NEGATIVE); UR UROBILINOGEN (Dip) NEGATIVE (NEGATIVE)
[2018-11-12 11:58] LABS: TROPONIN-I < 0.012 ng/ml (0.000-0.120)
[2018-11-12 13:09] LABS: POTASSIUM 6.2 mmol/L (3.5-5.1)
[2018-11-12] MEDS: SODIUM POLYSTYRENE 15 GM KIT (POWDER + SORBITOL) PO (13:21)
[2018-11-12] MEDS ORDERED: DEXTROSE 50% 50 ML SYRINGE IV ×3 (13:30→16:30)
[2018-11-12] MEDS ORDERED: ONDANSETRON 4 MG INJ IV (13:30)
[2018-11-12] MEDS ORDERED: ACETAMINOPHEN 325 MG TAB PO (13:30)
[2018-11-12] MEDS: DEXTROSE 50% 50 ML SYRINGE IV (14:04)
[2018-11-12] MEDS: NA BICARBONATE 8.4% 50 ML SYG IV (14:04)
[2018-11-12] MEDS: INSULIN REGULAR, HUMAN 100 UNIT/1 ML 3ML VIAL IVP (14:11)
[2018-11-12] MEDS: NA POLYST SULFON 15 GM/60 ML BTL PO (14:36)
[2018-11-12] MEDS ORDERED: NACL 0.9% 3 ML SYG IV (16:00)
[2018-11-12] MEDS ORDERED: GLUCAGON 1 MG INJ IM (16:30)
[2018-11-12] MEDS ORDERED: GLUCOSE GEL 15 GRAM TUBE PO (16:30)
[2018-11-12] MEDS ORDERED: GLUCOSE GEL 15 GRAM TUBE BUCCAL (16:30)
[2018-11-12] MEDS: HYDROCODONE/APAP (10/325) TAB PO ×2 (17:29→20:57)
[2018-11-12] MEDS: ERTAPENEM SODIUM 1 GM in SOD CHLORIDE 0.9% 100 ML IVPB (17:37)
[2018-11-12] MEDS: INSULIN ASPART [NOVOLOG] 3 ML PEN SC ×2 (17:37→21:03)
[2018-11-12] MEDS: carBAMAZepine (XR) 200 MG TABSR PO (20:56)
[2018-11-12] MEDS: TAMSULOSIN (SR) 0.4 MG CAP PO (20:56)
[2018-11-12] MEDS: ATORVASTATIN 40 MG TAB PO (20:56)
[2018-11-12] MEDS: GABAPENTIN 100 MG CAP PO (20:57)
[2018-11-12] MEDS: INSULIN GLARGINE [LANTus] (100 UNITS/ML) SYG SC (21:03)
[2018-11-12] MEDS: HEPARIN 5,000 UNIT/1 ML VIAL SC (21:04)
[2018-11-12] MEDS: PHENYTOIN 100 MG CAP PO (21:06)
[2018-11-13] MEDS: HYDROCODONE/APAP (10/325) TAB PO ×3 (01:09→16:35)
[2018-11-13] MEDS: GLUCOSE GEL 15 GRAM TUBE PO (01:15)
[2018-11-13] MEDS: ACCU-CHEK XX (02:00)
[2018-11-13] MEDS: HEPARIN 5,000 UNIT/1 ML VIAL SC ×3 (05:59→21:16)
[2018-11-13] MEDS: INSULIN ASPART [NOVOLOG] 3 ML PEN SC ×4 (07:52→21:00)
[2018-11-13 08:33] LABS: ADD MAN DIFF? NO
[2018-11-13 08:38] LABS: ABNORMAL IP MESSAGE 1; BASOPHILS % 0.3 % (0.0-2.0); EOSINOPHILS # 0.4 10^3/ul (0.0-0.5); EOSINOPHILS % 5.3 % (0.0-7.0); HEMATOCRIT 27.9 % (42.0-52.0); HEMOGLOBIN 8.9 g/dl (14.0-18.0); LYMPHOCYTES # 0.6 10^3/ul (0.8-2.9); LYMPHOCYTES % 8.4 % (15.0-51.0); MEAN CORPUSCULAR HEMOGLOBIN 27.8 pg (29.0-33.0); MEAN CORPUSCULAR HGB CONC 31.9 g/dl (32.0-37.0); MEAN CORPUSCULAR VOLUME 87.2 fl (82.0-101.0); MEAN PLATELET VOLUME 10.6 fl (7.4-10.4); MONOCYTE # 0.6 10^3/ul (0.3-0.9); MONOCYTES % 8.3 % (0.0-11.0); NEUTROPHIL # 5.4 10^3/ul (1.6-7.5); NEUTROPHILS % 77.3 % (39.0-77.0); PLATELET COUNT 297 10^3/UL (140-415); POSITIVE DIFF @See below; RED CELL DISTRIBUTION WIDTH 13.1 % (11.5-14.5)
[2018-11-13] MEDS: SOD CHLORIDE 0.9% 1,000 ML IV (09:18)
[2018-11-13] MEDS: carBAMAZepine (XR) 200 MG TABSR PO ×2 (09:19→21:06)
[2018-11-13] MEDS: GABAPENTIN 100 MG CAP PO ×2 (09:20→21:06)
[2018-11-13] MEDS: PHENYTOIN 100 MG CAP PO ×3 (09:20→21:06)
[2018-11-13] MEDS: THIAMINE 100 MG TAB PO (09:20)
[2018-11-13] MEDS: ASPIRIN (EC) 81 MG TAB PO (09:20)
[2018-11-13] MEDS: FLUOXETINE 20 MG CAP PO (09:20)
[2018-11-13] MEDS: FOLIC ACID 1 MG TAB PO (09:20)
[2018-11-13] MEDS: HYDROCHLOROTHIAZIDE 12.5 MG CAP PO (09:23)
[2018-11-13 09:35] LABS: CREATINE KINASE 389 IU/L (23-200)
[2018-11-13 09:35] LABS: URIC ACID 5.3 mg/dl (3.1-7.9)
[2018-11-13 09:56] LABS: ALANINE AMINOTRANSFERASE 40 IU/L (13-69); ALBUMIN/GLOBULIN RATIO 1.42; ALKALINE PHOSPHATASE 115 IU/L (42-121); ANION GAP 10 (5-13); ASPARTATE AMINO TRANSFERASE 30 IU/L (15-46); BILIRUBIN,INDIRECT 0.1 mg/dl (0-1.1); BILIRUBIN,TOTAL 0.1 mg/dl (0.2-1.3); BLOOD UREA NITROGEN 28 mg/dl (7-20); CALCIUM 8.8 mg/dl (8.4-10.2); CARBON DIOXIDE 22 mmol/L (21-31); CHLORIDE 109 mmol/L (97-110); CREATININE 1.22 mg/dl (0.61-1.24); Estimated GFR > 60 mL/min (>60); GLUCOSE 86 mg/dl (70-220); MAGNESIUM 1.6 mg/dl (1.7-2.5); PHOSPHORUS 3.8 mg/dl (2.5-4.9); SODIUM 141 mmol/L (135-144); TOTAL PROTEIN 6.8 g/dl (6.1-8.1)
[2018-11-13] MEDS: morphine (ER) 15 MG TAB PO ×2 (11:13→21:07)
[2018-11-13] MEDS: MAGNESIUM SULFATE 2 GM/50 ML 50 ML IVPB (11:13)
[2018-11-13 11:20] LABS: HEMOGLOBIN A1C 6.9 % (0-5.9)
[2018-11-13 13:17] LABS: SODIUM,URINE RANDOM 124 mmol/L (30-90)
[2018-11-13 13:19] LABS: CREATININE,URINE RANDOM 72.39 mg/dl (20-370); PROTEIN/CREAT RATIO 0.19 RATIO
[2018-11-13] MEDS: ERTAPENEM SODIUM 1 GM in SOD CHLORIDE 0.9% 100 ML IVPB (17:02)
[2018-11-13] MEDS: ATORVASTATIN 40 MG TAB PO (21:06)
[2018-11-13] MEDS: TAMSULOSIN (SR) 0.4 MG CAP PO (21:06)
[2018-11-13] MEDS: INSULIN GLARGINE [LANTus] (100 UNITS/ML) SYG SC (21:13)
[2018-11-14] MEDS: ACCU-CHEK XX ×2 (01:57→23:13)
[2018-11-14] MEDS: HYDROCODONE/APAP (10/325) TAB PO ×2 (02:39→21:01)
[2018-11-14] MEDS: HEPARIN 5,000 UNIT/1 ML VIAL SC ×3 (05:03→21:36)
[2018-11-14 05:52] LABS: ADD MAN DIFF? NO
[2018-11-14 06:03] LABS: BASOPHILS % 0.6 % (0.0-2.0); EOSINOPHILS # 0.6 10^3/ul (0.0-0.5); EOSINOPHILS % 9.2 % (0.0-7.0); HEMATOCRIT 27.4 % (42.0-52.0); HEMOGLOBIN 8.8 g/dl (14.0-18.0); LYMPHOCYTES # 0.9 10^3/ul (0.8-2.9); LYMPHOCYTES % 13.8 % (15.0-51.0); MEAN CORPUSCULAR HGB CONC 32.1 g/dl (32.0-37.0); MEAN CORPUSCULAR VOLUME 87.3 fl (82.0-101.0); MEAN PLATELET VOLUME 10.9 fl (7.4-10.4); MONOCYTE # 0.6 10^3/ul (0.3-0.9); NEUTROPHIL # 4.4 10^3/ul (1.6-7.5); NEUTROPHILS % 67.2 % (39.0-77.0); PLATELET COUNT 285 10^3/UL (140-415); RED BLOOD COUNT 3.14 10^6/ul (4.70-6.10)
[2018-11-14 06:03] LABS: WHITE BLOOD COUNT 6.5 10^3/ul (4.8-10.8)
[2018-11-14 06:51] LABS: ALANINE AMINOTRANSFERASE 35 IU/L (13-69); ALBUMIN 4.2 g/dl (3.3-4.9); ALBUMIN/GLOBULIN RATIO 1.27; ALKALINE PHOSPHATASE 116 IU/L (42-121); ANION GAP 10 (5-13); ASPARTATE AMINO TRANSFERASE 28 IU/L (15-46); BILIRUBIN,INDIRECT 0.1 mg/dl (0-1.1); BILIRUBIN,TOTAL 0.1 mg/dl (0.2-1.3); BLOOD UREA NITROGEN 31 mg/dl (7-20); CALCIUM 9.3 mg/dl (8.4-10.2); CARBON DIOXIDE 23 mmol/L (21-31); CHLORIDE 103 mmol/L (97-110); CREATININE 1.41 mg/dl (0.61-1.24); Estimated GFR 52 mL/min (>60); GLUCOSE 111 mg/dl (70-220); POTASSIUM 5.5 mmol/L (3.5-5.1); SODIUM 136 mmol/L (135-144); TOTAL PROTEIN 7.5 g/dl (6.1-8.1)
[2018-11-14] MEDS: INSULIN ASPART [NOVOLOG] 3 ML PEN SC ×4 (07:50→21:00)
[2018-11-14] MEDS: GABAPENTIN 100 MG CAP PO ×2 (08:40→20:59)
[2018-11-14] MEDS: FLUOXETINE 20 MG CAP PO (08:40)
[2018-11-14] MEDS: PHENYTOIN 100 MG CAP PO ×3 (08:40→21:01)
[2018-11-14] MEDS: FOLIC ACID 1 MG TAB PO (08:43)
[2018-11-14] MEDS: HYDROCHLOROTHIAZIDE 12.5 MG CAP PO (08:43)
[2018-11-14] MEDS: THIAMINE 100 MG TAB PO (08:43)
[2018-11-14] MEDS: ASPIRIN (EC) 81 MG TAB PO (08:44)
[2018-11-14] MEDS: morphine (ER) 15 MG TAB PO ×2 (08:44→21:34)
[2018-11-14] MEDS: carBAMAZepine (XR) 200 MG TABSR PO ×2 (10:31→20:59)
[2018-11-14] MEDS: NA POLYST SULFON 15 GM/60 ML BTL PO (13:09)
[2018-11-14 15:10] LABS: MAGNESIUM 1.8 mg/dl (1.7-2.5)
[2018-11-14] MEDS: ERTAPENEM SODIUM 1 GM in SOD CHLORIDE 0.9% 100 ML IVPB (18:03)
[2018-11-14] MEDS: TAMSULOSIN (SR) 0.4 MG CAP PO (20:59)
[2018-11-14] MEDS: ATORVASTATIN 40 MG TAB PO (20:59)
[2018-11-14] MEDS: INSULIN GLARGINE [LANTus] (100 UNITS/ML) SYG SC (21:11)
[2018-11-15] MEDS: HYDROCODONE/APAP (10/325) TAB PO ×3 (03:01→22:09)
[2018-11-15 05:15] LABS: ADD MAN DIFF? NO
[2018-11-15 05:19] LABS: BASOPHIL # 0.1 10^3/ul (0.0-0.1); BASOPHILS % 0.8 % (0.0-2.0); EOSINOPHILS # 0.6 10^3/ul (0.0-0.5); EOSINOPHILS % 9.5 % (0.0-7.0); HEMATOCRIT 27.6 % (42.0-52.0); HEMOGLOBIN 8.9 g/dl (14.0-18.0); LYMPHOCYTES # 1.1 10^3/ul (0.8-2.9); LYMPHOCYTES % 16.7 % (15.0-51.0); MEAN CORPUSCULAR HEMOGLOBIN 27.6 pg (29.0-33.0); MEAN CORPUSCULAR HGB CONC 32.2 g/dl (32.0-37.0); MEAN CORPUSCULAR VOLUME 85.7 fl (82.0-101.0); MEAN PLATELET VOLUME 10.9 fl (7.4-10.4); MONOCYTE # 0.8 10^3/ul (0.3-0.9); MONOCYTES % 11.9 % (0.0-11.0); NEUTROPHILS % 60.8 % (39.0-77.0); PLATELET COUNT 295 10^3/UL (140-415); RED BLOOD COUNT 3.22 10^6/ul (4.70-6.10)
[2018-11-15 05:19] LABS: WHITE BLOOD COUNT 6.5 10^3/ul (4.8-10.8)
[2018-11-15 05:45] LABS: ALANINE AMINOTRANSFERASE 36 IU/L (13-69); ALBUMIN 4.4 g/dl (3.3-4.9); ALBUMIN/GLOBULIN RATIO 1.25; ALKALINE PHOSPHATASE 133 IU/L (42-121); ANION GAP 9 (5-13); ASPARTATE AMINO TRANSFERASE 36 IU/L (15-46); BILIRUBIN,INDIRECT 0.1 mg/dl (0-1.1); BILIRUBIN,TOTAL 0.1 mg/dl (0.2-1.3); BLOOD UREA NITROGEN 37 mg/dl (7-20); CALCIUM 9.4 mg/dl (8.4-10.2); CARBON DIOXIDE 24 mmol/L (21-31); CHLORIDE 101 mmol/L (97-110); CREATININE 1.31 mg/dl (0.61-1.24); Estimated GFR 57 mL/min (>60); GLUCOSE 112 mg/dl (70-220); MAGNESIUM 1.7 mg/dl (1.7-2.5); PHOSPHORUS 5.6 mg/dl (2.5-4.9); POTASSIUM 4.9 mmol/L (3.5-5.1); SODIUM 134 mmol/L (135-144); TOTAL PROTEIN 7.9 g/dl (6.1-8.1)
[2018-11-15] MEDS: HEPARIN 5,000 UNIT/1 ML VIAL SC ×3 (06:34→22:02)
[2018-11-15] MEDS: INSULIN ASPART [NOVOLOG] 3 ML PEN SC ×4 (07:50→20:57)
[2018-11-15] MEDS: PHENYTOIN 100 MG CAP PO ×3 (09:17→20:50)
[2018-11-15] MEDS: FOLIC ACID 1 MG TAB PO (09:17)
[2018-11-15] MEDS: ASPIRIN (EC) 81 MG TAB PO (09:17)
[2018-11-15] MEDS: HYDROCHLOROTHIAZIDE 12.5 MG CAP PO (09:18)
[2018-11-15] MEDS: FLUOXETINE 20 MG CAP PO (09:19)
[2018-11-15] MEDS: carBAMAZepine (XR) 200 MG TABSR PO ×2 (09:19→20:50)
[2018-11-15] MEDS: THIAMINE 100 MG TAB PO (09:19)
[2018-11-15] MEDS: GABAPENTIN 100 MG CAP PO ×2 (09:19→20:50)
[2018-11-15] MEDS: morphine (ER) 15 MG TAB PO ×2 (09:20→20:51)
[2018-11-15] MEDS: ERTAPENEM SODIUM 1 GM in SOD CHLORIDE 0.9% 100 ML IVPB (17:35)
[2018-11-15] MEDS: TAMSULOSIN (SR) 0.4 MG CAP PO (20:49)
[2018-11-15] MEDS: ATORVASTATIN 40 MG TAB PO (20:50)
[2018-11-15] MEDS: INSULIN GLARGINE [LANTus] (100 UNITS/ML) SYG SC (20:58)
[2018-11-16] MEDS: ACCU-CHEK XX (02:00)
[2018-11-16 05:14] LABS: ADD MAN DIFF? NO
[2018-11-16 05:18] LABS: BASOPHILS % 0.7 % (0.0-2.0); EOSINOPHILS # 0.6 10^3/ul (0.0-0.5); EOSINOPHILS % 9.7 % (0.0-7.0); HEMATOCRIT 25.9 % (42.0-52.0); HEMOGLOBIN 8.3 g/dl (14.0-18.0); LYMPHOCYTES # 1.2 10^3/ul (0.8-2.9); LYMPHOCYTES % 20.1 % (15.0-51.0); MEAN CORPUSCULAR HEMOGLOBIN 27.3 pg (29.0-33.0); MEAN CORPUSCULAR VOLUME 85.2 fl (82.0-101.0); MEAN PLATELET VOLUME 10.7 fl (7.4-10.4); MONOCYTE # 0.6 10^3/ul (0.3-0.9); MONOCYTES % 10.9 % (0.0-11.0); NEUTROPHIL # 3.4 10^3/ul (1.6-7.5); NEUTROPHILS % 58.1 % (39.0-77.0); PLATELET COUNT 280 10^3/UL (140-415); RED BLOOD COUNT 3.04 10^6/ul (4.70-6.10)
[2018-11-16 05:18] LABS: WHITE BLOOD COUNT 5.9 10^3/ul (4.8-10.8)
[2018-11-16 05:50] LABS: ALANINE AMINOTRANSFERASE 33 IU/L (13-69); ALBUMIN 4.1 g/dl (3.3-4.9); ALBUMIN/GLOBULIN RATIO 1.32; ALKALINE PHOSPHATASE 142 IU/L (42-121); ANION GAP 11 (5-13); ASPARTATE AMINO TRANSFERASE 35 IU/L (15-46); BILIRUBIN,INDIRECT 0.1 mg/dl (0-1.1); BILIRUBIN,TOTAL 0.1 mg/dl (0.2-1.3); BLOOD UREA NITROGEN 37 mg/dl (7-20); CALCIUM 9.3 mg/dl (8.4-10.2); CARBON DIOXIDE 25 mmol/L (21-31); CHLORIDE 101 mmol/L (97-110); CREATININE 1.35 mg/dl (0.61-1.24); Estimated GFR 55 mL/min (>60); GLUCOSE 114 mg/dl (70-220); POTASSIUM 4.7 mmol/L (3.5-5.1); SODIUM 137 mmol/L (135-144); TOTAL PROTEIN 7.2 g/dl (6.1-8.1)
[2018-11-16] MEDS: HEPARIN 5,000 UNIT/1 ML VIAL SC ×3 (06:26→20:52)
[2018-11-16] MEDS: INSULIN ASPART [NOVOLOG] 3 ML PEN SC ×4 (07:50→19:59)
[2018-11-16] MEDS: HYDROCHLOROTHIAZIDE 12.5 MG CAP PO (08:53)
[2018-11-16] MEDS: GABAPENTIN 100 MG CAP PO ×2 (08:54→19:58)
[2018-11-16] MEDS: morphine (ER) 15 MG TAB PO ×2 (08:54→20:51)
[2018-11-16] MEDS: carBAMAZepine (XR) 200 MG TABSR PO ×2 (08:55→19:58)
[2018-11-16] MEDS: FLUOXETINE 20 MG CAP PO (08:55)
[2018-11-16] MEDS: FOLIC ACID 1 MG TAB PO (08:55)
[2018-11-16] MEDS: THIAMINE 100 MG TAB PO (08:55)
[2018-11-16] MEDS: ASPIRIN (EC) 81 MG TAB PO (08:55)
[2018-11-16] MEDS: PHENYTOIN 100 MG CAP PO ×2 (08:55→13:03)
[2018-11-16] MEDS: HYDROCODONE/APAP (10/325) TAB PO ×2 (14:14→20:51)
[2018-11-16 15:03] LABS: PHENYTOIN (DILANTIN) 21.3 ug/ml (10.0-20.0)
[2018-11-16] MEDS: ERTAPENEM SODIUM 1 GM in SOD CHLORIDE 0.9% 100 ML IVPB ×2 (17:32→18:33)
[2018-11-16] MEDS: ATORVASTATIN 40 MG TAB PO (19:57)
[2018-11-16] MEDS: TAMSULOSIN (SR) 0.4 MG CAP PO (19:57)
[2018-11-16] MEDS: INSULIN GLARGINE [LANTus] (100 UNITS/ML) SYG SC (20:01)
[2018-11-17] MEDS: ACCU-CHEK XX (02:00)
[2018-11-17 05:52] LABS: ADD MAN DIFF? NO
[2018-11-17 05:55] LABS: BASOPHILS % 0.5 % (0.0-2.0); EOSINOPHILS # 0.5 10^3/ul (0.0-0.5); EOSINOPHILS % 8.5 % (0.0-7.0); HEMATOCRIT 26.6 % (42.0-52.0); HEMOGLOBIN 8.6 g/dl (14.0-18.0); LYMPHOCYTES # 1.2 10^3/ul (0.8-2.9); LYMPHOCYTES % 20.9 % (15.0-51.0); MEAN CORPUSCULAR HEMOGLOBIN 27.7 pg (29.0-33.0); MEAN CORPUSCULAR HGB CONC 32.3 g/dl (32.0-37.0); MEAN CORPUSCULAR VOLUME 85.8 fl (82.0-101.0); MEAN PLATELET VOLUME 10.6 fl (7.4-10.4); MONOCYTE # 0.6 10^3/ul (0.3-0.9); MONOCYTES % 10.4 % (0.0-11.0); NEUTROPHIL # 3.4 10^3/ul (1.6-7.5); NEUTROPHILS % 58.8 % (39.0-77.0); PLATELET COUNT 300 10^3/UL (140-415)
[2018-11-17 05:55] LABS: WHITE BLOOD COUNT 5.8 10^3/ul (4.8-10.8)
[2018-11-17] MEDS: HEPARIN 5,000 UNIT/1 ML VIAL SC ×3 (06:03→22:33)
[2018-11-17] MEDS: PHENYTOIN 100 MG CAP PO ×2 (06:05→20:37)
[2018-11-17 06:27] LABS: ALANINE AMINOTRANSFERASE 28 IU/L (13-69); ALBUMIN 4.2 g/dl (3.3-4.9); ALBUMIN/GLOBULIN RATIO 1.31; ALKALINE PHOSPHATASE 145 IU/L (42-121); ANION GAP 11 (5-13); ASPARTATE AMINO TRANSFERASE 29 IU/L (15-46); BILIRUBIN,INDIRECT 0.1 mg/dl (0-1.1); BILIRUBIN,TOTAL 0.1 mg/dl (0.2-1.3); BLOOD UREA NITROGEN 35 mg/dl (7-20); CALCIUM 9.5 mg/dl (8.4-10.2); CARBON DIOXIDE 26 mmol/L (21-31); CHLORIDE 100 mmol/L (97-110); CREATININE 1.45 mg/dl (0.61-1.24); Estimated GFR 51 mL/min (>60); GLUCOSE 98 mg/dl (70-220); MAGNESIUM 1.6 mg/dl (1.7-2.5); POTASSIUM 4.5 mmol/L (3.5-5.1); SODIUM 137 mmol/L (135-144); TOTAL PROTEIN 7.4 g/dl (6.1-8.1)
[2018-11-17] MEDS: INSULIN ASPART [NOVOLOG] 3 ML PEN SC ×4 (07:50→20:42)
[2018-11-17] MEDS: ASPIRIN (EC) 81 MG TAB PO (08:48)
[2018-11-17] MEDS: FOLIC ACID 1 MG TAB PO (08:49)
[2018-11-17] MEDS: GABAPENTIN 100 MG CAP PO ×2 (08:49→20:37)
[2018-11-17] MEDS: carBAMAZepine (XR) 200 MG TABSR PO ×2 (08:49→20:37)
[2018-11-17] MEDS: FLUOXETINE 20 MG CAP PO (08:49)
[2018-11-17] MEDS: HYDROCHLOROTHIAZIDE 12.5 MG CAP PO (08:49)
[2018-11-17] MEDS: THIAMINE 100 MG TAB PO (08:50)
[2018-11-17] MEDS: morphine (ER) 15 MG TAB PO ×2 (08:50→20:36)
[2018-11-17] MEDS: MAGNESIUM SULFATE 2 GM/50 ML 50 ML IVPB (12:11)
[2018-11-17] MEDS: HYDROCODONE/APAP (10/325) TAB PO ×2 (14:37→20:36)
[2018-11-17] MEDS: ERTAPENEM SODIUM 1 GM in SOD CHLORIDE 0.9% 100 ML IVPB (17:20)
[2018-11-17] MEDS: TAMSULOSIN (SR) 0.4 MG CAP PO (20:37)
[2018-11-17] MEDS: ATORVASTATIN 40 MG TAB PO (20:37)
[2018-11-17] MEDS: INSULIN GLARGINE [LANTus] (100 UNITS/ML) SYG SC (20:43)
[2018-11-18] MEDS: ACCU-CHEK XX (02:00)
[2018-11-18] MEDS: HEPARIN 5,000 UNIT/1 ML VIAL SC ×3 (06:19→21:23)
[2018-11-18] MEDS: INSULIN ASPART [NOVOLOG] 3 ML PEN SC ×4 (07:50→21:22)
[2018-11-18] MEDS: carBAMAZepine (XR) 200 MG TABSR PO ×2 (08:26→21:20)
[2018-11-18] MEDS: FOLIC ACID 1 MG TAB PO (08:32)
[2018-11-18] MEDS: THIAMINE 100 MG TAB PO (08:33)
[2018-11-18] MEDS: FLUOXETINE 20 MG CAP PO (08:33)
[2018-11-18] MEDS: GABAPENTIN 100 MG CAP PO (08:33)
[2018-11-18] MEDS: ASPIRIN (EC) 81 MG TAB PO (08:34)
[2018-11-18] MEDS: morphine (ER) 15 MG TAB PO ×2 (08:34→21:20)
[2018-11-18] MEDS: HYDROCHLOROTHIAZIDE 12.5 MG CAP PO (08:38)
[2018-11-18] MEDS: HYDROCODONE/APAP (10/325) TAB PO ×3 (08:39→21:58)
[2018-11-18] MEDS: PHENYTOIN 100 MG CAP PO ×2 (08:40→21:20)
[2018-11-18 11:58] LABS: PHENYTOIN (DILANTIN) 12.1 ug/ml (10.0-20.0)
[2018-11-18] MEDS: MAGNESIUM SULFATE 1 GM/D5W 100 ML IVPB (16:38)
[2018-11-18] MEDS: ERTAPENEM SODIUM 1 GM in SOD CHLORIDE 0.9% 100 ML IVPB (17:50)
[2018-11-18] MEDS: ATORVASTATIN 40 MG TAB PO (21:20)
[2018-11-18] MEDS: TAMSULOSIN (SR) 0.4 MG CAP PO (21:20)
[2018-11-18] MEDS: INSULIN GLARGINE [LANTus] (100 UNITS/ML) SYG SC (21:22)
[2018-11-19] MEDS: ACCU-CHEK XX (01:45)
[2018-11-19] MEDS: HEPARIN 5,000 UNIT/1 ML VIAL SC ×3 (05:31→21:01)
[2018-11-19 05:55] LABS: ADD MAN DIFF? NO
[2018-11-19 06:00] LABS: BASOPHIL # 0.1 10^3/ul (0.0-0.1); BASOPHILS % 0.8 % (0.0-2.0); EOSINOPHILS # 0.4 10^3/ul (0.0-0.5); HEMOGLOBIN 9.3 g/dl (14.0-18.0); LYMPHOCYTES # 1.3 10^3/ul (0.8-2.9); LYMPHOCYTES % 21.1 % (15.0-51.0); MEAN CORPUSCULAR HEMOGLOBIN 27.5 pg (29.0-33.0); MEAN CORPUSCULAR HGB CONC 32.1 g/dl (32.0-37.0); MEAN CORPUSCULAR VOLUME 85.8 fl (82.0-101.0); MEAN PLATELET VOLUME 10.4 fl (7.4-10.4); MONOCYTE # 0.6 10^3/ul (0.3-0.9); MONOCYTES % 9.5 % (0.0-11.0); NEUTROPHIL # 3.7 10^3/ul (1.6-7.5); NEUTROPHILS % 61.1 % (39.0-77.0); PLATELET COUNT 350 10^3/UL (140-415); RED BLOOD COUNT 3.38 10^6/ul (4.70-6.10); RED CELL DISTRIBUTION WIDTH 12.9 % (11.5-14.5)
[2018-11-19 06:00] LABS: WHITE BLOOD COUNT 6.1 10^3/ul (4.8-10.8)
[2018-11-19 06:22] LABS: PHOSPHORUS 5.2 mg/dl (2.5-4.9)
[2018-11-19 06:27] LABS: ANION GAP 10 (5-13); BLOOD UREA NITROGEN 37 mg/dl (7-20); CALCIUM 10.3 mg/dl (8.4-10.2); CARBON DIOXIDE 26 mmol/L (21-31); CHLORIDE 103 mmol/L (97-110); CREATININE 1.52 mg/dl (0.61-1.24); Estimated GFR 48 mL/min (>60); GLUCOSE 90 mg/dl (70-220); POTASSIUM 4.7 mmol/L (3.5-5.1); SODIUM 139 mmol/L (135-144)
[2018-11-19] MEDS: INSULIN ASPART [NOVOLOG] 3 ML PEN SC ×4 (07:50→20:59)
[2018-11-19] MEDS: carBAMAZepine (XR) 200 MG TABSR PO ×2 (10:05→20:45)
[2018-11-19] MEDS: morphine (ER) 15 MG TAB PO ×2 (10:05→20:46)
[2018-11-19] MEDS: HYDROCHLOROTHIAZIDE 12.5 MG CAP PO (10:06)
[2018-11-19] MEDS: FLUOXETINE 20 MG CAP PO (10:06)
[2018-11-19] MEDS: THIAMINE 100 MG TAB PO (10:06)
[2018-11-19] MEDS: FOLIC ACID 1 MG TAB PO (10:06)
[2018-11-19] MEDS: PHENYTOIN 100 MG CAP PO ×2 (10:06→20:46)
[2018-11-19] MEDS: ASPIRIN (EC) 81 MG TAB PO (10:06)
[2018-11-19] MEDS: TAMSULOSIN (SR) 0.4 MG CAP PO (20:46)
[2018-11-19] MEDS: ATORVASTATIN 40 MG TAB PO (20:46)
[2018-11-19] MEDS: INSULIN GLARGINE [LANTus] (100 UNITS/ML) SYG SC (20:58)
[2018-11-19] MEDS: HYDROCODONE/APAP (10/325) TAB PO (23:30)
[2018-11-20] MEDS: ACCU-CHEK XX (02:00)
[2018-11-20 05:12] LABS: ADD MAN DIFF? NO
[2018-11-20 05:23] LABS: BASOPHILS % 0.5 % (0.0-2.0); EOSINOPHILS # 0.5 10^3/ul (0.0-0.5); EOSINOPHILS % 7.7 % (0.0-7.0); HEMATOCRIT 27.3 % (42.0-52.0); HEMOGLOBIN 8.9 g/dl (14.0-18.0); LYMPHOCYTES # 1.4 10^3/ul (0.8-2.9); LYMPHOCYTES % 22.8 % (15.0-51.0); MEAN CORPUSCULAR HEMOGLOBIN 27.7 pg (29.0-33.0); MEAN CORPUSCULAR HGB CONC 32.6 g/dl (32.0-37.0); MEAN PLATELET VOLUME 10.3 fl (7.4-10.4); MONOCYTE # 0.6 10^3/ul (0.3-0.9); MONOCYTES % 9.3 % (0.0-11.0); NEUTROPHIL # 3.5 10^3/ul (1.6-7.5); NEUTROPHILS % 58.9 % (39.0-77.0); PLATELET COUNT 350 10^3/UL (140-415); RED BLOOD COUNT 3.21 10^6/ul (4.70-6.10); RED CELL DISTRIBUTION WIDTH 12.7 % (11.5-14.5)
[2018-11-20 05:55] LABS: ANION GAP 10 (5-13); BLOOD UREA NITROGEN 38 mg/dl (7-20); CALCIUM 9.9 mg/dl (8.4-10.2); CARBON DIOXIDE 27 mmol/L (21-31); CHLORIDE 100 mmol/L (97-110); Estimated GFR 53 mL/min (>60); GLUCOSE 98 mg/dl (70-220); POTASSIUM 4.2 mmol/L (3.5-5.1); SODIUM 137 mmol/L (135-144)
[2018-11-20] MEDS: HEPARIN 5,000 UNIT/1 ML VIAL SC ×2 (06:16→14:00)
[2018-11-20] MEDS: INSULIN ASPART [NOVOLOG] 3 ML PEN SC ×2 (07:50→13:02)
[2018-11-20] MEDS: FLUOXETINE 20 MG CAP PO (08:28)
[2018-11-20] MEDS: ASPIRIN (EC) 81 MG TAB PO (08:28)
[2018-11-20] MEDS: HYDROCHLOROTHIAZIDE 12.5 MG CAP PO (08:29)
[2018-11-20] MEDS: THIAMINE 100 MG TAB PO (08:30)
[2018-11-20] MEDS: carBAMAZepine (XR) 200 MG TABSR PO (08:30)
[2018-11-20] MEDS: PHENYTOIN 100 MG CAP PO (08:30)
[2018-11-20] MEDS: FOLIC ACID 1 MG TAB PO (08:33)
[2018-11-20] MEDS: morphine (ER) 15 MG TAB PO (08:38)
== END 2018-11-20 14:36 | disposition home health service (06) | DRG 683 ==
LOC: MS1 11-14 07:04 → E/R 10:22 → TEL 13:29
DX: N17.9 Acute kidney failure, unspecified (principal); M48.54XA Collapsed vertebra, not elsewhere classified, thoracic region, initial encounter for fracture; M86.8X7 Other osteomyelitis, ankle and foot; I12.9 Hypertensive chronic kidney disease with stage 1 through stage 4 chronic kidney disease, or unspecified chronic kidney disease; E87.5 Hyperkalemia; N18.3 Chronic kidney disease, stage 3 (moderate); E78.5 Hyperlipidemia, unspecified; E03.9 Hypothyroidism, unspecified; F32.9 Major depressive disorder, single episode, unspecified; G40.909 Epilepsy, unspecified, not intractable, without status epilepticus; E11.22 Type 2 diabetes mellitus with diabetic chronic kidney disease; E83.42 Hypomagnesemia; Z91.81 History of falling; W19.XXXA Unspecified fall, initial encounter; E11.621 Type 2 diabetes mellitus with foot ulcer; L97.519 Non-pressure chronic ulcer of other part of right foot with unspecified severity; E11.42 Type 2 diabetes mellitus with diabetic polyneuropathy; Z89.422 Acquired absence of other left toe(s); Z89.421 Acquired absence of other right toe(s); Z91.14 Patient's other noncompliance with medication regimen
CPT/HCPCS: 36415; 70450; 71045; 72131; 80048; 80053; 80185; 81003; 82550; 82570; 82962; 83036; 83735; 84100; 84132; 84300; 84443; 84484; 84560; 85025; 89190; 96374; 96375; 97110; 97116; 97161; 97530; 99285-25

== ENCOUNTER 2018-11-26 08:33 | Emergency (ER) | payer OTHER ==
[2018-11-26] MEDS: OXYCODONE/ACETAMINOPHEN (5/325) TAB PO (09:49)
== END 2018-11-26 11:40 | disposition home or self-care (01) ==
LOC: E/R 11:40
DX: R07.9 Chest pain, unspecified (principal); I10 Essential (primary) hypertension; E11.9 Type 2 diabetes mellitus without complications; Z87.891 Personal history of nicotine dependence; Z79.4 Long term (current) use of insulin; Z79.82 Long term (current) use of aspirin
CPT/HCPCS: 71045; 93005; 99284-25

== ENCOUNTER 2019-02-02 10:09 | Emergency (ER) | payer OTHER ==
[2019-02-02 10:46] LABS: ADD MAN DIFF? NO
[2019-02-02 10:50] LABS: WHITE BLOOD COUNT 6.3 10^3/ul (4.8-10.8)
[2019-02-02 10:50] LABS: BASOPHIL # 0.1 10^3/ul (0.0-0.1); BASOPHILS % 1.1 % (0.0-2.0); EOSINOPHILS # 0.2 10^3/ul (0.0-0.5); HEMATOCRIT 34.5 % (42.0-52.0); HEMOGLOBIN 11.6 g/dl (14.0-18.0); LYMPHOCYTES # 1.7 10^3/ul (0.8-2.9); LYMPHOCYTES % 26.6 % (15.0-51.0); MEAN CORPUSCULAR HEMOGLOBIN 27.5 pg (29.0-33.0); MEAN CORPUSCULAR HGB CONC 33.6 g/dl (32.0-37.0); MEAN CORPUSCULAR VOLUME 81.8 fl (82.0-101.0); MEAN PLATELET VOLUME 9.3 fl (7.4-10.4); MONOCYTE # 0.4 10^3/ul (0.3-0.9); MONOCYTES % 6.2 % (0.0-11.0); NEUTROPHILS % 62.6 % (39.0-77.0); PLATELET COUNT 314 10^3/UL (140-415); RED BLOOD COUNT 4.22 10^6/ul (4.70-6.10); RED CELL DISTRIBUTION WIDTH 14.3 % (11.5-14.5)
[2019-02-02 11:06] LABS: ALANINE AMINOTRANSFERASE 64 IU/L (13-69); ALBUMIN 4.4 g/dl (3.3-4.9); ALBUMIN/GLOBULIN RATIO 1.12; ALKALINE PHOSPHATASE 181 IU/L (42-121); ANION GAP 11 (5-13); ASPARTATE AMINO TRANSFERASE 140 IU/L (15-46); BILIRUBIN,INDIRECT 0.4 mg/dl (0-1.1); BILIRUBIN,TOTAL 0.4 mg/dl (0.2-1.3); BLOOD UREA NITROGEN 24 mg/dl (7-20); CALCIUM 9.1 mg/dl (8.4-10.2); CARBON DIOXIDE 25 mmol/L (21-31); CHLORIDE 105 mmol/L (97-110); CREATININE 1.35 mg/dl (0.61-1.24); Estimated GFR 55 mL/min (>60); GLUCOSE 117 mg/dl (70-220); POTASSIUM 4.2 mmol/L (3.5-5.1); SODIUM 141 mmol/L (135-144); TOTAL PROTEIN 8.3 g/dl (6.1-8.1)
[2019-02-02 11:11] LABS: SALICYLATE < 1.0 mg/dl (5.0-30.0)
[2019-02-02] MEDS: LORAZEPAM 1 MG TAB PO (20:29)
[2019-02-03 00:32] LABS: ADD UMIC YES; UR ASCORBIC ACID NEGATIVE (NEGATIVE); UR BILIRUBIN (Dip) NEGATIVE (NEGATIVE); UR BLOOD (Dip) 1+ mg/dL (NEGATIVE); UR CLARITY CLEAR (CLEAR); UR COLOR YELLOW (YELLOW); UR GLUCOSE (Dip) 1+ mg/dL (NEGATIVE); UR KETONES (Dip) NEGATIVE (NEGATIVE); UR LEUKOCYTE ESTERASE (Dip) NEGATIVE Leu/ul (NEGATIVE); UR NITRITE (Dip) NEGATIVE (NEGATIVE); UR RBC 0 /HPF (0-5); UR SPECIFIC GRAVITY (Dip) 1.012 (1.003-1.030); UR TOTAL PROTEIN (Dip) 1+ mg/dl (NEGATIVE); UR UROBILINOGEN (Dip) NEGATIVE (NEGATIVE); UR WBC 1 /HPF (0-5)
[2019-02-03 00:44] LABS: AMPHETAMINE/METHAMPHETAMINE Negative (NEGATIVE); BARBITURATES Negative (NEGATIVE); BENZODIAZEPINES Negative (NEGATIVE); CANNABINOIDS Negative (NEGATIVE); COCAINE Negative (NEGATIVE)
[2019-02-03 00:54] LABS: OPIATES Positive (NEGATIVE)
[2019-02-03] MEDS: PHENYTOIN 100 MG CAP PO ×2 (17:10→22:35)
[2019-02-03] MEDS: CARBAMAZEPINE 200 MG TAB PO (17:10)
[2019-02-03] MEDS: LORAZEPAM 1 MG TAB PO (22:35)
[2019-02-04] MEDS: PHENYTOIN 100 MG CAP PO ×3 (10:44→21:26)
[2019-02-04] MEDS: IBUPROFEN 800 MG TAB PO ×2 (10:44→17:40)
[2019-02-04] MEDS: CARBAMAZEPINE 200 MG TAB PO ×2 (10:44→21:26)
[2019-02-04 19:47] LABS: ACETAMINOPHEN < 10.0 ug/ml (10.0-30.0)
[2019-02-04 19:47] LABS: ANION GAP 10 (5-13); CARBON DIOXIDE 25 mmol/L (21-31); CHLORIDE 97 mmol/L (97-110); GLUCOSE 290 mg/dl (70-220); POTASSIUM 4.3 mmol/L (3.5-5.1); SODIUM 132 mmol/L (135-144)
[2019-02-04 19:48] LABS: BLOOD UREA NITROGEN 16 mg/dl (7-20); CALCIUM 9.1 mg/dl (8.4-10.2); CREATININE 1.22 mg/dl (0.61-1.24); Estimated GFR > 60 mL/min (>60)
[2019-02-04 20:10] LABS: ALANINE AMINOTRANSFERASE 69 IU/L (13-69); ALBUMIN 4.1 g/dl (3.3-4.9); ALKALINE PHOSPHATASE 196 IU/L (42-121); ASPARTATE AMINO TRANSFERASE 91 IU/L (15-46); BILIRUBIN,INDIRECT 0.5 mg/dl (0-1.1); BILIRUBIN,TOTAL 0.5 mg/dl (0.2-1.3); TOTAL PROTEIN 7.1 g/dl (6.1-8.1)
[2019-02-04] MEDS: DIPHENHYDRAMINE 50 MG CAP PO (22:35)
[2019-02-05 04:55] LABS: PHENYTOIN (DILANTIN) < 3.0 ug/ml (10.0-20.0)
[2019-02-05] MEDS: IBUPROFEN 800 MG TAB PO (07:29)
[2019-02-05] MEDS ORDERED: ONDANSETRON 4 MG INJ IV (07:30)
[2019-02-05] MEDS: PHENYTOIN 100 MG CAP PO ×3 (09:19→12:43)
[2019-02-05] MEDS: ACETAMINOPHEN 325 MG TAB PO (09:20)
[2019-02-05] MEDS: PIPER-TAZO 3.375 GM IV (PMX) 100 ML IVPB (09:37)
[2019-02-05] MEDS: CARBAMAZEPINE 200 MG TAB PO (10:26)
[2019-02-05] MEDS: VANCOMYCIN 1 GM (PMX) 250 ML IVPB (10:26)
[2019-02-05] MEDS: CITALOPRAM 20 MG TAB PO (10:26)
[2019-02-05] MEDS ORDERED: PHENYTOIN 100 MG CAP PO (12:38)
== END 2019-02-05 12:59 | disposition home or self-care (01) ==
LOC: E/R 10:09
DX: T39.1X1A Poisoning by 4-Aminophenol derivatives, accidental (unintentional), initial encounter (principal); L08.9 Local infection of the skin and subcutaneous tissue, unspecified; E11.9 Type 2 diabetes mellitus without complications; I10 Essential (primary) hypertension; F17.210 Nicotine dependence, cigarettes, uncomplicated; Z79.4 Long term (current) use of insulin; Z79.82 Long term (current) use of aspirin
CPT/HCPCS: 36415; 80048; 80053; 80076; 80185; 80307; 81001; 82962; 85025; 99283

== ENCOUNTER 2019-04-19 19:08 | Emergency (ER) | payer OTHER ==
[2019-04-19 21:54] LABS: ADD UMIC YES; UR ASCORBIC ACID NEGATIVE (NEGATIVE); UR BILIRUBIN (Dip) NEGATIVE (NEGATIVE); UR BLOOD (Dip) 3+ mg/dL (NEGATIVE); UR CLARITY SLIGHTLY CLOUDY (CLEAR); UR COLOR YELLOW (YELLOW); UR GLUCOSE (Dip) NEGATIVE (NEGATIVE); UR KETONES (Dip) NEGATIVE (NEGATIVE); UR LEUKOCYTE ESTERASE (Dip) NEGATIVE Leu/ul (NEGATIVE); UR MUCUS FEW /HPF (NONE SEEN); UR NITRITE (Dip) NEGATIVE (NEGATIVE); UR RBC > 182 /HPF (0-5); UR SPECIFIC GRAVITY (Dip) 1.014 (1.003-1.030); UR TOTAL PROTEIN (Dip) 3+ mg/dl (NEGATIVE); UR UROBILINOGEN (Dip) NEGATIVE (NEGATIVE); UR WBC 18 /HPF (0-5)
[2019-04-19 21:56] LABS: ADD MAN DIFF? NO
[2019-04-19 22:05] LABS: BASOPHIL # 0.1 10^3/ul (0.0-0.1); BASOPHILS % 0.6 % (0.0-2.0); EOSINOPHILS # 0.6 10^3/ul (0.0-0.5); EOSINOPHILS % 6.7 % (0.0-7.0); HEMATOCRIT 31.8 % (42.0-52.0); HEMOGLOBIN 10.4 g/dl (14.0-18.0); LYMPHOCYTES # 1.1 10^3/ul (0.8-2.9); LYMPHOCYTES % 12.1 % (15.0-51.0); MEAN CORPUSCULAR HEMOGLOBIN 27.5 pg (29.0-33.0); MEAN CORPUSCULAR HGB CONC 32.7 g/dl (32.0-37.0); MEAN CORPUSCULAR VOLUME 84.1 fl (82.0-101.0); MEAN PLATELET VOLUME 9.9 fl (7.4-10.4); MONOCYTE # 0.8 10^3/ul (0.3-0.9); MONOCYTES % 8.5 % (0.0-11.0); NEUTROPHIL # 6.3 10^3/ul (1.6-7.5); NEUTROPHILS % 71.6 % (39.0-77.0); PLATELET COUNT 405 10^3/UL (140-415); RED BLOOD COUNT 3.78 10^6/ul (4.70-6.10); RED CELL DISTRIBUTION WIDTH 13.7 % (11.5-14.5)
[2019-04-19 22:05] LABS: WHITE BLOOD COUNT 8.8 10^3/ul (4.8-10.8)
[2019-04-19 22:29] LABS: ALANINE AMINOTRANSFERASE 34 IU/L (13-69); ALBUMIN 4.5 g/dl (3.3-4.9); ALBUMIN/GLOBULIN RATIO 1.12; ALKALINE PHOSPHATASE 138 IU/L (42-121); ANION GAP 12 (5-13); ASPARTATE AMINO TRANSFERASE 34 IU/L (15-46); BILIRUBIN,INDIRECT 0.1 mg/dl (0-1.1); BILIRUBIN,TOTAL 0.1 mg/dl (0.2-1.3); BLOOD UREA NITROGEN 34 mg/dl (7-20); CALCIUM 9.7 mg/dl (8.4-10.2); CARBON DIOXIDE 25 mmol/L (21-31); CHLORIDE 102 mmol/L (97-110); CREATININE 1.67 mg/dl (0.61-1.24); Estimated GFR 43 mL/min (>60); GLUCOSE 103 mg/dl (70-220); LIPASE 31 U/L (23-300); POTASSIUM 3.6 mmol/L (3.5-5.1); SODIUM 139 mmol/L (135-144); TOTAL PROTEIN 8.5 g/dl (6.1-8.1)
[2019-04-19 22:40] LABS: TROPONIN-I < 0.012 ng/ml (0.000-0.120)
[2019-04-19] MEDS: KETOROLAC 30 MG INJ IV (23:32)
[2019-04-20] MEDS: CEFTRIAXONE 1 GM/50 ML (PMX) 50 ML IVPB (00:17)
[2019-04-20] MEDS: LIDOCAINE 2% 20 ML UROJET SYRINGE MM (00:35)
== END 2019-04-20 04:50 | disposition home or self-care (01) ==
LOC: E/R 19:08
DX: N32.0 Bladder-neck obstruction (principal); I10 Essential (primary) hypertension; E11.9 Type 2 diabetes mellitus without complications; Z79.4 Long term (current) use of insulin; Z79.82 Long term (current) use of aspirin
CPT/HCPCS: 36415; 74176; 80053; 81001; 83690; 84484; 85025; 87086; 93005; 96374; 96375; 99285-25